=== PATIENT | female | born 1940 | race African-American/Black ===

== ENCOUNTER 2022-09-05 07:50 | Day surgery (SDC) | payer MEDICARE, SELFPAY ==
[2022-08-01 10:29] VITALS: BMI 33.3
[2022-08-29 10:39] VITALS: BMI 30.8
[2022-09-05 08:40] VITALS: BP 168/92; PULSE 80; RESP 18; TEMP 36.7; O2SAT 100
[2022-09-05 08:42] LABS: Glucose Point of Care 101 mg/dl (65-105)
--- NOTE | 2022-09-05 09:24 | PM.HPGS ---
History of Present Illness History of Present Illness Consent: Risks, benefits, and alternatives have been discussed and questions answered. Patient agrees to proceed with procedure. Chief complaint: History of Colon Polyps Narrative: Krysta Duarte is a 82 year old female Presents for screening colonoscopy. Patient's current weight appetite and bowel movements are normal. Patient denies abdominal pain. She has had no bleeding. Patient has a history of adenomatous colon polyps removed 2017. Patient presents today for follow-up screening colonoscopy because of prior history of colon polyps. Review of Systems Review of Systems: Review of systems noncontributory. [facility] Social History Social History Smoking status: Never smoker Alcohol intake: never Substance use: never Substance use type: does not use Living arrangements: with family Spiritual care concerns: No Meds Home Medications and Allergies Home Medications Medication Instructions Recorded Confirmed Type sodium,potassium,mag sulfates 17.5 See Rx Instructions PO .COMPLEX 08/01/22 09/05/22 Rx gram-3.13 gram-1.6 gram oral soln #354 mL (Suprep Bowel Prep Kit) aspirin 325 mg tablet 325 mg PO DAILY 08/29/22 09/05/22 History carvedilol 12.5 mg tablet 12.5 mg PO DAILY 08/29/22 09/05/22 History citalopram 20 mg tablet 20 mg PO DAILY 08/29/22 09/05/22 History ezetimibe 10 mg tablet 10 mg PO DAILY 08/29/22 09/05/22 History fluticasone propionate 50 2 spray intranasal DAILY 08/29/22 09/05/22 History mcg/actuation nasal spray,suspension furosemide 20 mg tablet 20 mg PO DIRECTED 08/29/22 09/05/22 History hydrocodone 10 mg-acetaminophen 1 tablet PO DIRECTED 08/29/22 09/05/22 History 325 mg tablet isosorbide mononitrate 30 mg 30 mg PO DAILY 08/29/22 09/05/22 History tablet,extended release 24 hr metformin 500 mg tablet 500 mg PO BID 08/29/22 09/05/22 History primidone 50 mg tablet 50 mg PO DIRECTED 08/29/22 09/05/22 History simvastatin 40 mg tablet 20 mg PO DAILY 08/29/22 09/05/22 History trazodone 100 mg tablet 1 mg PO HS 08/29/22 09/05/22 History triamterene 37.5 1 tablet PO DAILY 08/29/22 09/05/22 History mg-hydrochlorothiazide 25 mg tablet Allergies Allergy/AdvReac Type Severity Reaction Status Date / Time erythromycin base Allergy Severe LUMP IN Verified 09/05/22 08:38 THROAT, HIVES morphine Allergy Severe HIVES Verified 09/05/22 08:38 Penicillins Allergy Severe HIVES Verified 09/05/22 08:38 Campus Allergy Severe LIPS AND Uncoded 09/05/22 08:38 TONGUE SWELLS Exam Narrative: Physical exam reveals patient to be alert. Vital signs stable. HEENT exam is unremarkable. Patient is anicteric. Lungs are clear to auscultation and percussion. Heart is without murmur or extra sounds. Abdomen bowel sounds present soft nontender with no organomegaly. Digital external rectal exam is normal. Assessment and Plan Assessment and plan (1) History of colon polyps: Code(s): Z86.010 - Personal history of colonic polyps Status: Acute Assessment and Plan: Patient has a prior history of colon polyps. Most recently 2016. Plan for follow-up colonoscopy at this time.
--- NOTE | 2022-09-05 09:29 | WPDANESEPPF ---
Anes - Initial Pre Proc Eval Procedure: Operation Date: 09/05/22 09:30 Proposed Procedures p Diagnostic Colonoscopy - Benoit Gallegos MD Date/Time: 09/05/22 09:29 Surgeon: Benoit Gallegos MD Pre Op Diagnosis: History of Colon Polyps Patient Data Age: 82 Gender: F Height: 1.6 m Weight: 78.3 kg Allergies Allergy/AdvReac Type Severity Reaction Status Date / Time erythromycin base Allergy Severe LUMP IN Verified 09/05/22 08:38 THROAT, HIVES morphine Allergy Severe HIVES Verified 09/05/22 08:38 Penicillins Allergy Severe HIVES Verified 09/05/22 08:38 [place] Allergy Severe LIPS AND Uncoded 09/05/22 08:38 TONGUE SWELLS Home Medications Medication Instructions Recorded Confirmed Type sodium,potassium,mag sulfates 17.5 See Rx Instructions PO .COMPLEX 08/01/22 09/05/22 Rx gram-3.13 gram-1.6 gram oral soln #354 mL (Suprep Bowel Prep Kit) aspirin 325 mg tablet 325 mg PO DAILY 08/29/22 09/05/22 History carvedilol 12.5 mg tablet 12.5 mg PO DAILY 08/29/22 09/05/22 History citalopram 20 mg tablet 20 mg PO DAILY 08/29/22 09/05/22 History ezetimibe 10 mg tablet 10 mg PO DAILY 08/29/22 09/05/22 History fluticasone propionate 50 2 spray intranasal DAILY 08/29/22 09/05/22 History mcg/actuation nasal spray,suspension furosemide 20 mg tablet 20 mg PO DIRECTED 08/29/22 09/05/22 History hydrocodone 10 mg-acetaminophen 1 tablet PO DIRECTED 08/29/22 09/05/22 History 325 mg tablet isosorbide mononitrate 30 mg 30 mg PO DAILY 08/29/22 09/05/22 History tablet,extended release 24 hr metformin 500 mg tablet 500 mg PO BID 08/29/22 09/05/22 History primidone 50 mg tablet 50 mg PO DIRECTED 08/29/22 09/05/22 History simvastatin 40 mg tablet 20 mg PO DAILY 08/29/22 09/05/22 History trazodone 100 mg tablet 1 mg PO HS 08/29/22 09/05/22 History triamterene 37.5 1 tablet PO DAILY 08/29/22 09/05/22 History mg-hydrochlorothiazide 25 mg tablet Laboratory Tests 09/05/22 08:39 POC Capillary Glucose 101 mg/dl mg/dl (65-105) Patient hx anesthesia problems: none Family hx anesthesia problems: none Results Review: All pre-operative results and documents have been reviewed as part of the pre-operative evaluation. [facility] Past Medical History Medical History (Updated 09/05/22 @ 09:31 by Keegan Hamilton MD) Arthritis Diabetes HTN (hypertension) Hyperlipidemia Obesity Social History Social History Smoking status: Never smoker Alcohol intake: never Substance use: never Substance use type: does not use Living arrangements: with family Spiritual care concerns: No Anes - Eval Final PreProcedure Day of Procedure 09/05/22 09:29 Patient weight: obese Heart: regular rate and rhythm Lungs: clear to auscultation and normal air movement Airway: Mallampati scale class II Neurological: alert and oriented Last oral intake: >/= 8 hours ASA classification: III Emergent: no Anesthetic plan: proceed Anesthesia type and monitoring: general GIVS Results Review: All pre-operative results and documents have been reviewed as part of the pre-operative evaluation. Informed Consent: The patient's anesthetic plan and its attendant risks and benefits were discussed with the patient/family/POA. Questions were solicited and answers provided to the satisfaction of the patient/family/POA.
[2022-09-05] MEDS: LACTATED RINGERS 1,000 ML 150 ML IV CONT (10:07)
[2022-09-05 10:36] VITALS: BP 121/65; PULSE 66; RESP 17; O2SAT 99
[2022-09-05 10:46] VITALS: BP 145/62; PULSE 62; RESP 18; O2SAT 100
--- NOTE | 2022-09-05 10:53 | SUR.PHASEII ---
PT AWAKE AND ALERT. EATING AND DRINKING. DENIES PAIN. ASKING WHEN SHE CAN GO HOME.
[2022-09-05 10:56] VITALS: BP 147/66; PULSE 61; RESP 18; O2SAT 100
--- NOTE | 2022-09-05 12:00 | WPDANESPN ---
Anes - Prog Note Post-Op Date/Time: 09/05/22 12:00 Cardiovascular status: normal Respiratory status: normal Airway patency: baseline Mental status: baseline Post-Op hydration status: normal Vital Signs: Last Vital Signs Temp 36.7 C 09/05/22 08:40 Pulse 61 09/05/22 10:56 Resp 18 09/05/22 10:56 BP 147/66 H 09/05/22 10:56 Pulse Ox 100 09/05/22 10:56 O2 Del Method Room Air 09/05/22 10:56 Pain Score (VAS): 0 I/O: Intake & Output 09/04/22 09/05/22 09/05/22 23:59 07:59 15:59 Intake Total 600 Balance 600 09/05/22 08:39 POC Capillary Glucose 101 Post-procedural complaints: none Patient Feedback: Patient satisfied with anesthetic care.
== END 2022-09-05 11:07 | disposition home or self-care (01) ==
PROVIDERS: PCP Internal Medicine; Visit Provider Internal Medicine Gastroenterology
PROC: 0DJD8ZZ Inspection of Lower Intestinal Tract, Via Natural or Artificial Opening Endoscopic (ICD-10-PCS; CPT 45378; principal; 2022-09-05 09:30)
DX: Z86.010 Personal history of colon polyps (principal)
CPT/HCPCS: 45378

== ENCOUNTER 2024-02-08 13:58 | Emergency (ER) | payer MEDICARE, SELFPAY ==
--- NOTE | ~2024-02-08 | CT_ITS ---
CT brain wo con Ordering provider: Luis Alfredo Cleveland MD History: 83 years Female with . GASTELUM/ N/V . Comparison: None. Technique: CT of the head without contrast. Radiation reduction technique utilized. The dose-length product was 605.33 mGy-cm. FINDINGS: BRAIN PARENCHYMA AND CSF SPACES: Mild leukoaraiosis and diffuse cortical atrophy. Mild atheromatous d isease. Mild ventricular dilatation. Old lacunar infarct in the right basal ganglia. No midline shift , mass effect or hemorrhage. The brain parenchyma and CSF spaces are otherwise normal. Empty sella t urcica. VISUALIZED PARANASAL SINUSES: Well aerated. MASTOIDS: Well aerated. BONES: The bones appear intact. SOFT TISSUES: Visualized nasopharynx is normal. Superficial soft tissues are normal. IMPRESSION: No acute intracranial findings. Reviewed, dictated and finalized at location A.
--- NOTE | ~2024-02-08 | XR_ITS ---
XR chest 2V Ordering provider: Luis Alfredo Cleveland MD History: 83 years Female with . lightheaded, LEFT SIDED FACIAL DROOP, HX HTN . Comparison: None. FINDINGS: MEDIASTINUM: The cardiac silhouette is not enlarged. Right bipolar pacemaker. Left abandoned pacemake r wires. LUNGS: No infiltrates, effusions or pneumothorax. Granulomas seen in the right upper lobe and right l ower lobe. OTHER: No free air under the diaphragm. Degenerative spine. IMPRESSION: No acute cardiopulmonary pathology. Reviewed, dictated and finalized at location A.
--- NOTE | 2024-02-08 14:00 | ECG_ITS ---
Test Date: 2024-02-08 14:07:47 Measurements Intervals [place] Rate: 65 P: 31 WA: 297 QRS: 1 QRSD: 93 T: -82 QT: 434 QTc: 452 Interpretive Statements ELECTRONIC ATRIAL PACEMAKER ST DEVIATION AND MODERATE T-WAVE ABNORMALITY, CONSIDER ANTEROLATERAL ISCHEMIA [-0.1+ mV T-WAVE IN V3-V6] ST DEVIATION AND MODERATE T-WAVE ABNORMALITY, CONSIDER INFERIOR ISCHEMIA [-0.1+ mV T-WAVE IN II/aVF] ABNORMAL ECG No previous ECG available for comparison Electronically Signed On 02-09-2024 14:36:08 CDT by Zack Dickerson M.D.
[2024-02-08 14:15] VITALS: BP 212/95; PULSE 65; RESP 19; TEMP 36.8; O2SAT 99
[2024-02-08 14:28] LABS: Basophils Absolute Auto 0.1 K/mm3 (0.0-0.1); Basophils Percent Auto 1.4 % (0.2-1.2); Eosinophils Absolute Auto 0.1 K/mm3 (0-0.3); Eosinophils Percent Auto 2.8 % (0-4.4); Hematocrit 37.6 % (37.0-47.0); Hemoglobin 12.2 g/dL (12.0-15.0); Immature Granulocyte Absolute 0.01 K/mm3 (0.00-0.031); Immature Granulocyte Percent A 0.2 % (0-0.5); Lymphocytes Absolute Auto 2.08 K/mm3 (0.9-3.2); Lymphocytes Percent Auto 40.9 % (18.3-44.2); Mean Corpuscular HGB Conc 32.4 g/dl (32-36); Mean Corpuscular Hemoglobin 28.7 pg (26-34); Mean Corpuscular Volume 88.5 fl (80-100); Mean Platelet Volume 9.9 fl (7.4-10.4); Monocytes Absolute Auto 0.4 K/mm3 (0.1-0.6); Monocytes Percent Auto 7.5 % (2.6-8.5); Neutrophils Absolute Auto 2.4 K/mm3 (1.3-6.7); Neutrophils Percent Auto 47.2 % (45.5-73.1); Platelet Count Result 255 k/mm3 (150-375); Red Blood Count 4.25 M/mm3 (4.2-5.4); Red Cell Distribution Width 13.1 % (11.5-14.5); White Blood Count 5.1 K/mm3 (4.5-10.0)
[2024-02-08 14:36] LABS: Alanine Aminotransferase 16 U/L (6-35); Albumin Level 4.2 g/dL (3.5-5.1); Alkaline Phosphatase 107 U/L (38-126); Anion Gap 9 mmol/L (4-12); Aspartate Amino Transferase 26 U/L (14-36); Bilirubin,Total 0.2 mg/dL (0.2-1.3); Blood Urea Nitrogen 27 mg/dL (7-17); Carbon Dioxide 28 mmol/L (22-30); Chloride 95 mmol/L (98-107); Estimated CRCL calculation 39 ml/min; Estimated Glomerular Filt Rate > 60; Glucose 107 mg/dL (65-110); Sodium 132 mmol/L (137-145)
[2024-02-08] MEDS: PROCHLORPERAZINE EDISYLATE 10 MG/2 ML VIAL IM (14:57)
[2024-02-08] MEDS: diphenhydrAMINE HCl INJ 50 MG/ML VIAL 25 MG IV PUSH (14:58)
[2024-02-08] MEDS: ACETAMINOPHEN 500 MG TABLET 1000 MG PO (14:59)
[2024-02-08 15:03] VITALS: BP 201/79; PULSE 61; RESP 12; O2SAT 97
[2024-02-08 15:14] VITALS: BP 201/79; PULSE 61; RESP 17; O2SAT 98
--- NOTE | 2024-02-08 15:50 | ECG_ITS ---
Test Date: 2024-02-08 15:57:31 Measurements Intervals [place] Rate: 60 P: 32 NH: 214 QRS: -74 QRSD: 204 T: 101 QT: 502 QTc: 506 Interpretive Statements ELECTRONIC ATRIAL PACEMAKER ELECTRONIC VENTRICULAR PACEMAKER ABNORMAL RHYTHM ECG Compared to ECG 02/08/2024 14:07:47 PATIENT IS VENTRICULARLY PACED RATHER THAN INTRINSIC CONDUCTION Electronically Signed On 02-09-2024 14:48:07 CDT by Zack Dickerson M.D.
[2024-02-08 15:52] VITALS: BP 185/74; PULSE 61; RESP 16; O2SAT 98
[2024-02-08] MEDS: cloNIDine HCL 0.1 MG TABLET 0.2 MG PO (15:52)
--- NOTE | 2024-02-08 16:57 | ED.GENADULT ---
HPI - General Adult General Chief complaint: Recheck/Abnormal Lab/Rx Stated complaint: HTN-sent from [facility] Time Seen by Provider: 02/08/24 14:08 History of Present Illness HPI narrative: This is an 83-year-old female sent to the ED from urgent care for hypertension. Patient says she has been having a headache for the last 2 days. It is her typical frontal headache that she has on a weekly basis. Since she has had her headache she has noticed that her blood pressures have been elevated at 200/90. She states she has had some associated nausea but no vomiting. 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 No chest pain difficulty breathing. She is on clonidine which is the only medication she takes for her hypertension. No other complaints. Related Data Home Medications Medication Instructions Recorded Confirmed citalopram 20 mg tablet 20 mg PO DAILY 08/29/22 01/25/24 furosemide 20 mg tablet 20 mg PO DIRECTED 08/29/22 01/25/24 hydrocodone 10 mg-acetaminophen 1 tablet PO DIRECTED 08/29/22 01/25/24 325 mg tablet isosorbide mononitrate 30 mg 30 mg PO DAILY 08/29/22 01/25/24 tablet,extended release 24 hr metformin 500 mg tablet 500 mg PO BID 08/29/22 01/25/24 primidone 50 mg tablet 50 mg PO DIRECTED 08/29/22 01/25/24 simvastatin 40 mg tablet 20 mg PO DAILY 08/29/22 01/25/24 clonidine HCl 0.1 mg tablet 0.1 mg PO DAILY 08/31/23 01/25/24 diazepam 5 mg tablet 5 mg PO QHS PRN 08/31/23 01/25/24 meclizine 25 mg tablet 25 mg PO BID PRN 08/31/23 01/25/24 methadone 5 mg tablet 5 mg PO DAILY 08/31/23 01/25/24 topiramate 25 mg capsule,extended 25 mg PO DAILY 08/31/23 01/25/24 release 24 hr Allergies Allergy/AdvReac Type Severity Reaction Status Date / Time erythromycin base Allergy Severe LUMP IN Verified 02/08/24 13:59 THROAT, HIVES morphine Allergy Severe HIVES Verified 02/08/24 13:59 Penicillins Allergy Severe HIVES Verified 02/08/24 13:59 orange Allergy Unknown lips swell Verified 02/08/24 13:59 PMFSH Past Medical History Medical History Arthritis Diabetes HTN (hypertension) Hyperlipidemia Obesity Pacemaker Vertigo Surgical History Surgical History History of appendectomy History of cholecystectomy History of permanent cardiac pacemaker placement History of tubal ligation Family History Family History Father Acute myocardial infarction Heart disease Mother Diabetes mellitus Sibling , ovarian cancer COVID-19 Cerebrovascular accident Acute myocardial infarction Diabetes mellitus Hypertension Other Cancer Social History Social History Smoking status: Former smoker Second hand tobacco smoke exposure: No Alcohol intake: never Substance use: never Substance use type: does not use Do You Feel Safe in your Home?: Yes Lack of Transportation: No Lack of Food: Never True Current Housing: Decline to Answer Concerned About Future Housing: No Difficulty Paying Gas/Electric Bills: No Difficulty Paying for Meds: No Currently Unemployed: YES Education: High School Diploma/GED Difficulty w/ Childcare or Family Care: No Living arrangements: with family Occupation/Education: 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 Gender identity (if verbalized by the patient): Female Spiritual care concerns: No Exam Narrative: APPEARANCE: No apparent distress. Head: atraumatic. EYES: EOMI, NOSE: Atraumatic NECK: Trachea midline RESPIRATORY: No increased rate of breathing, clear to auscultation CARDIOVASCULAR: RRR, no peripheral edema ABDOMINAL: Non-distended nontender MUSCULOSKELETAl: No obvious deformities NEURO: Alert. Crania
[2024-02-08 17:37] VITALS: BP 165/87; PULSE 80; RESP 16; O2SAT 97
== END 2024-02-08 17:38 | disposition home or self-care (01) ==
PROVIDERS: Emergency Provider Emergency Medicine; PCP Internal Medicine
DX: R51.9 Headache, unspecified (principal); I10 Essential (primary) hypertension; M19.90 Unspecified osteoarthritis, unspecified site; E11.9 Type 2 diabetes mellitus without complications; E78.5 Hyperlipidemia, unspecified; Z95.0 Presence of cardiac pacemaker; Z79.84 Long term (current) use of oral hypoglycemic drugs
CPT/HCPCS: 36415; 70450; 71046; 80053; 85025; 93005; 96372; 96374; 99284; A9270; J0780; J1200

== ENCOUNTER 2024-03-06 12:39 | Outpatient (CLI) | payer MEDICARE, SELFPAY ==
--- NOTE | 2024-03-06 14:30 | NEURO_ITS ---
Impression: # Complains of numbness of hands. # Right moderate Carpal Tunnel Syndrome. # Bilateral ulnar neuropathy across the elbows. # Needle/EMG exam without myotonia of fasciculations but mild neurogenic changes. Nerve Conduction Studies Anti Sensory Summary Table Stim Site NR Peak (ms) P-T Amp (?V) Site1 Site2 Delta-P (ms) Dist (cm) Young (m/s) Left Median Anti Sensory (2-3nd Digit) Wrist 3.6 26.1 Wrist 2-3nd Digit 3.6 14.0 39 Wrist 3.8 14.4 Wrist 2-3nd Digit 3.6 14.0 39 Right Median Anti Sensory (2-3nd Digit) Wrist 4.3 8.5 Wrist 2-3nd Digit 4.3 14.0 33 Wrist 5.7 6.1 Wrist 2-3nd Digit 4.3 14.0 33 Left Radial Anti Sensory (Base 1st Digit) Wrist 2.1 24.4 Wrist Base 1st Digit 2.1 0.0 Right Radial Anti Sensory (Base 1st Digit) Wrist 3.0 10.2 Wrist Base 1st Digit 3.0 0.0 Left Ulnar Anti Sensory (5th Digit) Wrist 3.4 15.2 Wrist 5th Digit 3.4 14.0 41 Right Ulnar Anti Sensory (5th Digit) Wrist 3.1 10.7 Wrist 5th Digit 3.1 14.0 45 Motor Summary Table Stim Site NR Onset (ms) O-P Amp (mV) Site1 Site2 Delta-0 (ms) Dist (cm) Young (m/s) Left Median Motor (Abd Poll Brev) Wrist 3.4 5.7 Elbow Wrist 5.4 31.0 57 Elbow 8.8 5.0 Right Median Motor (Abd Poll Brev) Wrist 5.5 3.7 Elbow Wrist 5.5 28.0 51 Elbow 11.0 3.8 Left Ulnar Motor (Abd Dig Minimi) Wrist 2.5 4.8 A Elbow Wrist 6.6 32.0 48 A Elbow 9.1 3.9 B Elbow Wrist 4.1 21.0 51 B Elbow 6.6 2.8 Right Ulnar Motor (Abd Dig Minimi) Wrist 2.7 2.9 A Elbow Wrist 7.1 29.0 41 A Elbow 9.8 1.3 B Elbow Wrist 3.9 21.0 54 B Elbow 6.6 2.6 F Wave Studies NR F-Lat (ms) L-R F-Lat (ms) Left Median (Mrkrs) (Abd Poll Brev) 31.04 1.56 Right Median (Mrkrs) (Abd Poll Brev) 32.60 1.56 Left Ulnar (Mrkrs) (Abd Dig Min) 31.80 0.52 Right Ulnar (Mrkrs) (Abd Dig Min) 32.32 0.52 EMG Side Muscle Nerve Root Ins Act Fibs Amp Dur Recrt Comment Right 1stDorInt Ulnar C8-T1 Nml Nml Nml >12ms +1 Right Ext Indicis Radial (Post Int) C7-8 Nml Nml Nml Nml Nml Right Ext Digitorum Radial (Post Int) C7-8 Nml Nml Nml Nml Nml Right BrachioRad Radial C5-6 Nml Nml Nml Nml Nml Right PronatorTeres Median C6-7 Nml Nml Nml Nml Nml Right Abd Poll Brev Median C8-T1 Nml Nml Nml Nml Nml Right ABD Dig Min Ulnar C8-T1 Nml Nml Nml >12ms +1 Left 1stDorInt Ulnar C8-T1 Nml Nml Nml >12ms +1 Left Ext Indicis Radial (Post Int) C7-8 Nml Nml Nml Nml Nml Left Ext Digitorum Radial (Post Int) C7-8 Nml Nml Nml Nml Nml Left BrachioRad Radial C5-6 Nml Nml Nml Nml Nml Left PronatorTeres Median C6-7 Nml Nml Nml Nml Nml Left Abd Poll Brev Median C8-T1 Nml Nml Nml Nml Nml Left ABD Dig Min Ulnar C8-T1 Nml Nml Nml >12ms +1 MTDD
== END 2024-03-06 12:40 | disposition home or self-care (01) ==
PROVIDERS: PCP Internal Medicine; Visit Provider Orthopaedic Surgery
DX: G56.01 Carpal tunnel syndrome, right upper limb (principal); G56.23 Lesion of ulnar nerve, bilateral upper limbs
CPT/HCPCS: 95886; 95911

== ENCOUNTER 2024-04-08 00:50 | Day surgery (SDC) | payer MEDICARE, SELFPAY ==
[2024-04-01 13:37] VITALS: BMI 34.9
--- NOTE | 2024-04-01 13:55 | PC.NURSE ---
Report to the Outpatient Waiting Room, entrance under the green pavilion located off [facility], at time _07:30am___on date _04/08/24 . Planned Procedure Time: _09:30am .? Time changes happen often and if your time is changed the preop area will call you the afternoon before. - You and your visitor will be asked to self-screen and do not enter if you have any COVID symptoms. Please call surgeon if you need to reschedule. - A mask is optional within the hospital at this time. Patients may have clear liquids (water, carbonated beverages, clear teas, apple juice) until 3 hours prior to surgery with a maximum of 20 ounces. - No food from midnight until time of surgery and no smoking - Infants may have breast milk until 4 hours before surgery, infant formula 6 hours prior to surgery. - Children will be allowed to drink immediately following surgery.? If applicable, please bring a bottle or sippy cup to assist with drinking. Juice, water, soda, and popsicles are readily available.? For infants on formula, please bring formula the day of surgery.? Pacifiers are allowed. Take only the following medications with a SIP of water on the morning of surgery: Citalopram, Isosorbide, primidone, hydrocodone if needed , topiramate, meclizine & hydrocodone if needed. DO NOT STOP ANY OF YOUR OTHER PRESCRIPTION MEDICATIONS PRIOR TO SURGERY EXCEPT THE FOLLOWING Medications to discontinue per physician Dr Mathews to call pt with instructions on Diclofenac and Aspirin (Office called and his RN to call pt later today or tomorrow with instructions, pt aware. Date to take last dose____Per DR Mathews instructions on these two Aspirin and Diclofenac. HOLD All Vitamins 3 days prior to surgery per Anesthesia. Date to take last dose is 04/04/24. Please no make-up, nail emirati, hairspray, perfume, deodorant, or body powder the day of surgery.? No jewelry (including any body piercings) or valuables the day of surgery, leave them at home.? Please take a shower or bath the night before, or the morning of, surgery with an antibacterial soap.? Wear comfortable, loose fitting clothing.? - Jewelry must be removed prior to entering the operating room.? Rings and piercings that are not removed may be cut off. - The hospital will not accept responsibility for valuables.? - Please leave all valuables, including medications, at home the day of surgery. If you are going home after surgery, a licensed route sales delivery driver must drive you home.? - NO public transportation without another adult if you receive anesthesia. - We recommend that an adult stay with you for 24 hours following discharge. - We also recommend that you do not drive, make important decision, drink alcoholic beverages, or take any drugs that were not prescribed by your health care provider for at least 24 hours after your discharge time. Follow any additional instructions given to you from your surgeon. Telephone instructions given to __patient and asked if any additional questions and then verbalized understanding. Patient advised to call surgeon office or pre surgery nurse liaison [phone] if any additional questions.
--- NOTE | 2024-04-02 11:36 | PM.IMHP ---
H&P: HPI History of Present Illness Date/Time: 04/02/24 11:36 Chief Complaint: Patient is a right carpal and cubital tunnel syndrome. She has failed conservative treatment like to consider surgical release. Review of Systems Musculoskeletal: Musculoskeletal: Reports arthralgias, Reports joint swelling and Reports stiffness [facility] Past Medical History Medical History Arthritis Diabetes HTN (hypertension) Hyperlipidemia Obesity Pacemaker Vertigo Surgical History Surgical History History of appendectomy History of cholecystectomy History of permanent cardiac pacemaker placement History of tubal ligation Family History Family History Father Acute myocardial infarction Heart disease Mother Diabetes mellitus Sibling , ovarian cancer COVID-19 Cerebrovascular accident Acute myocardial infarction Diabetes mellitus Hypertension Other Cancer Social History Social History Smoking packs per day: 0.5 Smoking cigarettes per day: 10.0 Years smoked: 10 Smoking pack-years: 5.00 Smoking status: Former smoker Second hand tobacco smoke exposure: No Smoking end date: 06/26/1963 Alcohol intake: never Substance use: never Substance use type: does not use Do You Feel Safe in your Home?: Yes Lack of Transportation: No Lack of Food: Never True Current Housing: I Have Housing Concerned About Future Housing: No Difficulty Paying Gas/Electric Bills: No Difficulty Paying for Meds: YES Education: High School Diploma/GED Difficulty w/ Childcare or Family Care: No Living arrangements: with family Additional living arrangements comments: 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/Education: 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 Gender identity (if verbalized by the patient): Female Spiritual care concerns: No Meds Home Medications and Allergies Home Medications Medication Instructions Recorded Confirmed Type citalopram 20 mg tablet 20 mg PO DAILY 08/29/22 04/01/24 History furosemide 20 mg tablet 40 mg PO DIRECTED 08/29/22 04/01/24 History hydrocodone 10 mg-acetaminophen 1 tablet PO DIRECTED 08/29/22 04/01/24 History 325 mg tablet isosorbide mononitrate 30 mg 30 mg PO DAILY 08/29/22 04/01/24 History tablet,extended release 24 hr metformin 500 mg tablet 500 mg PO BID 08/29/22 04/01/24 History primidone 50 mg tablet 150 mg PO DIRECTED 08/29/22 04/01/24 History simvastatin 40 mg tablet 20 mg PO DAILY 08/29/22 04/01/24 History clonidine HCl 0.1 mg tablet 0.2 mg PO TID 08/31/23 04/01/24 History topiramate 25 mg capsule,extended 25 mg PO DIRECTED headache 08/31/23 04/01/24 History release 24 hr diclofenac sodium 75 mg See Rx Instructions .Route 03/28/24 04/01/24 Rx tablet,delayed release .COMPLEX #60 tabs aspirin 81 mg tablet 81 mg PO DAILY 04/01/24 04/01/24 History naloxegol 25 mg tablet (Movantik) 25 mg PO DAILY 04/01/24 04/01/24 History trazodone 100 mg tablet 100 mg PO HS 04/01/24 04/01/24 History Allergies Allergy/AdvReac Type Severity Reaction Status Date / Time erythromycin base Allergy Severe LUMP IN Verified 04/01/24 13:26 THROAT, HIVES morphine Allergy Severe HIVES Verified 04/01/24 13:26 Penicillins Allergy Severe HIVES Verified 04/01/24 13:26 orange Allergy Unknown lips swell Verified 04/01/24 13:26 Exam Narrative: Examination of her wrist demonstrates positive Phalen's carpal tunnel compression test. She has increased two-point discrimination in the median nerve innervated fingers. She has pain with any manipulation. Examination of her elbow demonstrates tenderness along the ulnar nerve. She has a positive Tinel's and cubital tunnel compression test. Numbn
[2024-04-08] VITALS (10 sets, daily range): BP systolic 157–191; BP diastolic 68–89; PULSE 60–80; RESP 10–18; TEMP 36.1–36.6; O2SAT 97–100
--- NOTE | 2024-04-08 06:46 | WPDHPUPDATE1 ---
History and Physical Update Update Date/Time: 04/08/24 06:46 History and Physical has been reviewed, including an updated exam of the patient. There are NO changes in the patient's condition. Risks, benefits, and alternatives have been discussed and questions answered. Patient agrees to proceed with procedure.
--- NOTE | 2024-04-08 07:11 | WPDANESEPPF ---
Anes - Initial Pre Proc Eval Procedure: Operation Date: 04/08/24 09:30 Proposed Procedures p Right Carpal and Cubital Tunnel Release - Dewey Mathews MD Date/Time: 04/08/24 07:11 Surgeon: eDwey Mathews MD Pre Op Diagnosis: Right Carpal and Cubital Tunnel syndrome Patient Data Age: 83 Gender: F Height: 1.55 m Weight: 84 kg Allergies Allergy/AdvReac Type Severity Reaction Status Date / Time erythromycin base Allergy Severe LUMP IN Verified 04/01/24 13:26 THROAT, HIVES morphine Allergy Severe HIVES Verified 04/01/24 13:26 Penicillins Allergy Severe HIVES Verified 04/01/24 13:26 orange Allergy Unknown lips swell Verified 04/01/24 13:26 Home Medications Medication Instructions Recorded Confirmed Type citalopram 20 mg tablet 20 mg PO DAILY 08/29/22 04/01/24 History furosemide 20 mg tablet 40 mg PO DIRECTED 08/29/22 04/01/24 History hydrocodone 10 mg-acetaminophen 1 tablet PO DIRECTED 08/29/22 04/01/24 History 325 mg tablet isosorbide mononitrate 30 mg 30 mg PO DAILY 08/29/22 04/01/24 History tablet,extended release 24 hr metformin 500 mg tablet 500 mg PO BID 08/29/22 04/01/24 History primidone 50 mg tablet 150 mg PO DIRECTED 08/29/22 04/01/24 History simvastatin 40 mg tablet 20 mg PO DAILY 08/29/22 04/01/24 History clonidine HCl 0.1 mg tablet 0.2 mg PO TID 08/31/23 04/01/24 History topiramate 25 mg capsule,extended 25 mg PO DIRECTED headache 08/31/23 04/01/24 History release 24 hr diclofenac sodium 75 mg See Rx Instructions .Route 03/28/24 04/01/24 Rx tablet,delayed release .COMPLEX #60 tabs aspirin 81 mg tablet 81 mg PO DAILY 04/01/24 04/01/24 History naloxegol 25 mg tablet (Movantik) 25 mg PO DAILY 04/01/24 04/01/24 History trazodone 100 mg tablet 100 mg PO HS 04/01/24 04/01/24 History Patient hx anesthesia problems: none Family hx anesthesia problems: none Results Review: All pre-operative results and documents have been reviewed as part of the pre-operative evaluation. [facility] Past Medical History Medical History Arthritis Diabetes HTN (hypertension) Hyperlipidemia Obesity Pacemaker Vertigo Surgical History Surgical History History of appendectomy History of cholecystectomy History of permanent cardiac pacemaker placement History of tubal ligation Family History Family History Father Acute myocardial infarction Heart disease Mother Diabetes mellitus Sibling , ovarian cancer COVID-19 Cerebrovascular accident Acute myocardial infarction Diabetes mellitus Hypertension Other Cancer Social History Social History Smoking packs per day: 0.5 Smoking cigarettes per day: 10.0 Years smoked: 10 Smoking pack-years: 5.00 Smoking status: Former smoker Second hand tobacco smoke exposure: No Smoking end date: 06/26/1963 Alcohol intake: never Substance use: never Substance use type: does not use Do You Feel Safe in your Home?: Yes Lack of Transportation: No Lack of Food: Never True Current Housing: I Have Housing Concerned About Future Housing: No Difficulty Paying Gas/Electric Bills: No Difficulty Paying for Meds: YES Education: High School Diploma/GED Difficulty w/ Childcare or Family Care: No Living arrangements: with family Additional living arrangements comments: 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
[2024-04-08] MEDS: KETOROLAC 15 MG/ML VIAL (*BKC) IV PUSH (07:15)
[2024-04-08] MEDS: ACETAMINOPHEN 500 MG TABLET 1000 MG PO (07:15)
[2024-04-08] MEDS: LACTATED RINGERS 1,000 ML 30 ML IV CONT (07:15)
[2024-04-08 07:17] LABS: Glucose Point of Care 94 mg/dl (65-105)
[2024-04-08] MEDS: ceFAZolin 2 GM/D5W 50 ML 2 GM/50 ML BAG IVPB (07:29)
[2024-04-08] MEDS: ceFAZolin SODIUM 1 GM VIAL (07:52)
[2024-04-08] MEDS: LIDO 1%/EPINEPHRINE 1:100,000 20 ML VIAL 5 ML INFILTRATE (08:10)
--- NOTE | 2024-04-08 08:25 | P.OP_ITS ---
Procedure Note - Detailed Date of Procedure 04/08/24 Pre-op Diagnosis Right Carpal and Cubital Tunnel syndrome Post-op Diagnosis Same Procedure Performed RIGHT Carpal Tunnel release RIGHT Cubital Tunnel release Surgeon Dewey Mathews MD Anesthesia MAC Indications Pain and Numbness Description of Procedure A general anesthetic was administered. Patient was sterilely prepped and draped. I began with the elbow. A longitudinal incision was made between the m edial epicondyle and the olecranon. Dissection carried down to the fascia and the fascia and thickened cubital tunnel were split. This completely released the ulnar nerve. The arm was put through a full range of motion and the nerve was noted to be stable in all directions. Hemostasis was obtained, the wound thoroughly irrigated, and closed with 2-0 Vicryl and 3-0 Nylon. I then proceeded to the carpal tunnel. After sterile prep and drape, I injected the area of intended incision with 10ml of 1% lidocaine. A longitudinal incision was made in line with the ulnar boarder of the third finger. Dissection carried down to the fascia, the fascia split and the carpal ligament identified. The carpal ligament was released and the flexor retinaculum was released as well. The nerve was noted to be red purple in color and in continuity. The wound was irrigated, hemostasis was obtained and closed with 3- 0 nylon. Estimated Blood Loss 5 Drains No Packing No Pathology None sent Complications No immediate complications Condition Stable Disposition Same day [facility] Billing Surgery - Charge Forward: Surgery Billing ([id number] Carpal Tunnel [id number] Cubital Tunnel)
[2024-04-08 08:47] LABS: Glucose Point of Care 83 mg/dl (65-105)
[2024-04-08] MEDS: fentaNYL CITRATE INJ (*CRX) 100 MCG/2 ML VIAL 25 MCG IV PUSH ×4 (08:53→09:32)
[2024-04-08] MEDS: HYDROcodone/acetaminophen (*CRX) 5-325 MG TABLET 1 TAB PO (10:17)
== END 2024-04-08 10:57 | disposition home health service (06) ==
PROVIDERS: PCP Internal Medicine; Visit Provider Orthopaedic Surgery
PROC: (CPT 64721; principal; 2024-04-08 09:30)
DX: G56.01 Carpal tunnel syndrome, right upper limb (principal); G56.21 Lesion of ulnar nerve, right upper limb; I10 Essential (primary) hypertension; E78.5 Hyperlipidemia, unspecified; E11.9 Type 2 diabetes mellitus without complications; E66.9 Obesity, unspecified; Z68.34 Body mass index [BMI] 34.0-34.9, adult; Z79.891 Long term (current) use of opiate analgesic; Z79.84 Long term (current) use of oral hypoglycemic drugs; Z79.82 Long term (current) use of aspirin; Z98.890 Other specified postprocedural states; Z95.0 Presence of cardiac pacemaker; Z90.49 Acquired absence of other specified parts of digestive tract; Z98.51 Tubal ligation status; Z87.891 Personal history of nicotine dependence; Z80.41 Family history of malignant neoplasm of ovary; Z82.49 Family history of ischemic heart disease and other diseases of the circulatory system
CPT/HCPCS: 64721; 64718; 82948; A9270; J0690; J1885; J2003; J2004; J2405; J2704; J3010; J7120

== ENCOUNTER 2024-06-13 11:10 | Outpatient (CLI) | payer MEDICARE, SELFPAY ==
--- NOTE | ~2024-06-13 | XR_ITS ---
AP and lateral views of the left hip Clinical history: Pain Findings: No acute fracture or dislocation is seen. Osseous alignment is anatomic. There is spurring at the left superolateral acetabular margin. Soft tissues are unremarkable. Impression: Mild left hip joint degenerative change Reviewed, dictated and finalized at [facility]. ONENT INSPECTOR Impression: Mild left hip joint degenerative change
== END 2024-06-13 11:11 | disposition home or self-care (01) ==
LOC: ANHIMG 11:16
PROVIDERS: PCP Internal Medicine; Visit Provider Internal Medicine
DX: M25.552 Pain in left hip (principal); M16.12 Unilateral primary osteoarthritis, left hip
CPT/HCPCS: 73502

== ENCOUNTER 2025-04-02 09:15 | Outpatient (CLI) | payer MEDICARE, SELFPAY ==
--- NOTE | ~2025-04-02 | CT_ITS ---
EXAMINATION: CT sinus wo con COMPARISON: None HISTORY: Chronic sinusitis TECHNIQUE: Axial images were obtained without IV contrast. Sagittal, coronal reconstruction images were obtained from the axial views. CT scan performed using dose optimization techniques including the following automated exposure control; adjustment of mA and/or kV; use of iterative reconstruction technique. Automatic exposure control was used to reduce radiation dose. Permanent radiation dose record is archived to PACS. FINDINGS: The nasal bones are intact. Anterior maxillary sinus kirkpatrick, zygomatic arches and temporomandibular joints are intact. The visualized brain parenchyma demonstrates a remote appearing right basal ganglion lacunar infarct. Pituitary appears atrophy. Correlate for symptoms of the sella syndrome. Orbits are unremarkable. Soft tissues unremarkable Frontal sinus is unremarkable. Minimal mucosal thickening within the ethmoidal air cells and the maxillary sinuses bilaterally. The ostiomeatal complexes are patent. Nasal septum is deviated to the left with mild thickening of the turbinates and mild narrowing of the nasal cavities bilaterally. Sphenoid sinuses are unremarkable. There is no osseous destruction or wall thickening identified. IMPRESSION: Minimal sinusitis. Incidental findings above Reviewed, dictated and finalized at location P.
== END 2025-04-02 09:16 | disposition home or self-care (01) ==
PROVIDERS: PCP Internal Medicine; Visit Provider Otolaryngology
DX: J32.9 Chronic sinusitis, unspecified (principal); J34.2 Deviated nasal septum
CPT/HCPCS: 70486

== ENCOUNTER 2025-04-10 11:38 | Inpatient (IN) | payer MEDICARE, SELFPAY ==
--- OUTSIDE RECORDS SUMMARY | 2009-04-20 09:15 | XMS_ITS | Continuity of Care Document ---
Author Organization [facility] Address [address] [place] [address] [place] [address] Phone Care Team Providers Care Stepdown Nurse Name Role Phone Jeff Flores Unavailable Unavailable Procedures Procedure Date Eye Exam & Treatment Dilated Retinal Exam W Interpretation Oc No Script Advance Directives Directive Yes / No Effective Date File Name No Information Encounters Encounter Description Practice Location Reason(s) For Visit Diagnoses Date Provider Providers Copied on Encounter [facility], [address] [place] [address] [address], [place], [place], [id number], [place] tel:[phone] [facility] No Information 6-[address] [place] Jeff. [address] [facility] [address], [place], [address], [place]. tel:[phone] Family History Family Member Type Diagnosis Age At Onset No Information Payers Payer name Insurance type Covered republican ID Authoriza tion(s) [employer] CI [id number] Social History Type Description Quantity Date Captured Comments Sex Female Smoking Status No Information Chief Complaint And Reason For Visit No Information Reason For Referral Reason For Referral No Information History Of Present Illness Encounter Date Complaint History Of Prese nt Illness No Information Functional Status Date Functional Assessmen t No Information Instructions Date Instruction Additional Infor mation No Information Assessments Type Assessment Date No Information Patient Care Teams Name Effective Dates (start - stop) Status Members No Information
--- OUTSIDE RECORDS SUMMARY | 2009-04-20 09:15 | XMS_ITS | Continuity of Care Document ---
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 [address] [facility] [address], [place], [address], [place]. tel:[phone] Family History Family Member Type Diagnosis Age At Onset No Information Payers Payer name Insurance type Covered democrat ID Authoriza tion(s) [employer] CI [id number] Social History Type Description Quantity Date Captured [...]
--- OUTSIDE RECORDS SUMMARY | 2025-03-23 18:59 | XMS_ITS | Continuity of Care Document ---
Author Organization [facility] Address [address] [place] [phone] Phone Care Team Providers Care Landfill Attendant Name Role Phone Jose RASMUSSEN, DAVID, FSCLINDA, Blu Unavailable U navailable Jose RASMUSSEN FACC, Blu HAINES Unavailable U navailable Procedures Procedure Date REM PHYSIOL MNTR EA ADDL REM MNTR PHYSIOL TING DEV REM PHYSIOL MNTR 20 MIN MO REM PHYSIOL MNTR EA ADDL REM MNTR PHYSIOL TIGN DEV REM PHYSIOL MNTR 20 MIN MO REM PHYSIOL MNTR EA ADDL REM MNTR PHYSIOL TING DEV REM PHYSIOL MNTR 20 MIN MO PM/ICD REMOTE TECH SERV PM DEVICE INTERROGATE REMOTE REM PHYSIOL MNTR EA ADDL REM MNTR PHYSIOL TING DEV REM PHYSIOL MNTR 20 MIN MO Advance Directives Directive Yes / No Effective Date File Name No Information Encounters Encounter Description Practice Location Reason(s) For Visit Diagnoses Date Provider Providers Copied on Encounter [facility], [address], [place], [id number] , tel: [phone] No Information Jose Hurt. [address] [place] [address], [id number] , . tel: [phone] Referring Provider: Blu Garcia, [address] , [place], [address] . tel: [phone] sulting Provider: Blu Garcia, [address], [place], [address] . tel:[phone] REM PHYSIOL MNTR EA ADDL 20 [facility], [address] [place] [address], [id number] , tel: [phone] [facility] [place] Essential (primary) hypertensionPresence of cardiac pacemaker Feb- 5 Ramadan Blu. [address], [place], [id number] , . tel: [phone] Referring Provider: Blu Garcia, [facility] , [place], [address] . tel: [phone] sulting Provider: Blu Garcia, [address] [place], [place] [address]Srinivas , [place], [address] . tel:[phone] REM PHYSIOL MNTR EA ADDL 20 [facility], [address] [place] [address], [id number] , tel: [phone] [facility] Essential (primary) hypertensionPresence of cardiac pacemaker Jan- 5 Ramadan Blu. [address] [place], [place], [id number] , . tel: [phone] Referring Provider: Blu Garcia, [address] , [place], [address] . tel: [phone] sulting Provider: Blu Garcia, [address] [place], [place] [address], [address] . tel:[phone] REM PHYSIOL MNTR EA ADDL 20 [facility], [address] [place] [address], [id number] , tel: [phone] [facility] Ess[facility] (primary) hypertensionPresence of cardiac pacemaker Dec-3 0 5 Ramadan Blu. [address], [place], [id number] , . tel: [phone] Referring Provider: Blu Garcia, [address] [place], [address] . tel:[phone] jessica Provider: Blu Garcia, [address] [place], [address] . tel:[phone] [facility] , [address] [place] [address], [id number] , tel: [phone] [facility] Essential (primary) hypertensionPresence of cardiac pacemaker 5 Ramadan Blu. [facility] [address] [place], [place], [id number] , . tel: [phone] Referring Provider: Blu Garcia, [address] [place], [address] . tel:[phone] lopez Provider: Blu Garcia, [facility] [place], [address] . tel:[phone] REM PHYSIOL MNTR EA ADDL 20 [facility] , [address] [place] [address], [id number] , tel: [phone] [facility] [place] Essential (primary) hypertensionPresence of cardiac pacemaker 5 Ramadan Blu. [facility] [address] [place], [place], [id number] , . tel: [phone] Referring Provider: Blu Garcia, [address] [place], [address] . tel:[phone] lopez Provider: Blu Garcia [address] [place], [address] . tel:[phone] Family History Family Member Type Diagnosis Age At Onset No Information Payers Payer name Insurance type Covered republican ID Authorjoshuaa chanell(s) [facility] MEDICARE AD[facility]ANTAGE [address] [id number] Social History Type Description Quantity Date Captured Comments Sex Female Smoking Status No Information Chief Complaint And Reason For Visit No Information Reason For Referral Reason For Referral No Information Plan Of Treatment Date Type Action Status Appointment Krysta Duarte [facility] Needs Rs BOOKED History Of Present Illness Encounter Date Complaint History Of Prese nt Illness No Information Functional Status Date Functional Assessmen t No Information Instructions Date Instruction Additional Infor mation No Information Assessments Type Assessment Date No Information Patient Care Teams Name Effective Dates (start - stop) Status Members No Information
--- OUTSIDE RECORDS SUMMARY | 2025-03-23 18:59 | XMS_ITS | Continuity of Care Document ---
Author Organization [facility] Address [address] [place] [phone] Phone Care Team Providers Care Home Manager Name Role Phone Jose RASMUSSEN, DAVID, FSCLINDA, [...] Diagnoses Date Provider Providers Copied on Encounter [facility], [address], [place], [id number] , tel: [phone] No Information Jose Hurt. [address] [place] [address], [id number] , . tel: [phone] Referring Provider: Blu Garcia, [address] , [place], [address] . tel: [phone] sulting Provider: Blu Garcia, [address], [place], [address] . tel:[phone] REM PHYSIOL MNTR EA ADDL 20 [facility], [address] [place] [address], [id number] , tel: [phone] [facility] [place] Essential (primary) hypertensionPresence of cardiac pacemaker Feb- 5 Ramadan Blu. [address], [place], [id number] , . tel: [phone] Referring Provider: Blu Garcia, [facility] , [place], [address] . tel: [phone] sulting Provider: Blu Garcia, [address] [place], [place] [address]Srin[place] , [place], [address] . tel:[phone] REM PHYSIOL MNTR EA ADDL 20 [facility], [address] [place] [address], [id number] , tel: [phone] [facility] [place] Essential (primary) hypertensionPresence of cardiac pacemaker Jan- 5 Ramadan Blu. [address] [place], [place], [id number] , . tel: [phone] Referring Provider: Blu Garcia, [address] , [place], [address] . tel: [phone] sulting Provider: Blu Garcia, [address] [place], [place] [address], [address] . tel:[phone] REM PHYSIOL MNTR EA ADDL 20 [facility], [address] [place] [address], [id number] , tel: [phone] [facility] [place] Essential (primary) hypertensionPresence of cardiac pacemaker Dec-3 0 5 Ramadan Blu. [address], [place], [id number] , . tel: [phone] Referring Provider: Blu Garcia, [address] [place], [address] . tel:[phone] jessica Provider: Blu Garcia, [address] [place], [address] . tel:[phone] [facility] , [address] [place] [address], [id number] , tel: [phone] [facility] [place] Essential (primary) hypertensionPresence of cardiac pacemaker 5 Ramadan Blu. [facility] [address] [place], [id number] , . tel: [phone] Referring Provider: Blu Garcia, [address] [place], [address] . tel:[phone] lopez Provider: Blu Garcia, [facility] [place], [address] . tel:[phone] REM PHYSIOL MNTR EA ADDL 20 [facility] , [address] [place] [address], [id number] , tel: [phone] [facility] [place] Essential (primary) hypertensionPresence of cardiac pacemaker 5 Ramadan Blu. [facility] [address] [place], [id number] , . tel: [phone] Referring Provider: Blu Garcia, [address] [place], [address] . tel:[phone] lopez Provider: Blu Garcia [address] [place], [address] . tel:[phone] Family History Family Member Type Diagnosis Age At Onset No Information Payers Payer name Insurance type Covered constitution party ID Authorjoshuaa chanell(s) [facility] MEDICARE ADVANTAGE [address] [id number] Social History Type Description Quantity Date Captured [...]
[2025-04-10] VITALS (23 sets, daily range): BP systolic 144–169; BP diastolic 58–99; PULSE 60–84; RESP 12–23; TEMP 36.6–36.7; O2SAT 96–100; BMI 33.0
--- NOTE | ~2025-04-10 | XR_ITS ---
EXAMINATION: XR chest 1V portable COMPARISON: No comparisons available. HISTORY: weakness FINDINGS: Moderate pulmonary venous congestion. No pneumothorax. Mild cardiomegaly. Mediastinal and hilar contours are within normal limits. Bony thorax no acute abnormality. Miscellaneous: Right pacemaker. Impression: CHF Reviewed, dictated and finalized at location P. Impression: CHF
--- NOTE | ~2025-04-10 | US_ITS ---
Clinical History: Weakness Examination: US carotid duplex BI Comparison: None Technique: Grayscale, color, duplex/spectral Doppler sonography carotid and vertebral arteries. Distal CCA and Peak ICA systolic velocities provided. Society of Radiologists in Ultrasound (SRU) consensus criteria utilized, indirectly assessing stenosis by velocities. Findings: No plaque noted Right side: CCA - 64 cm/sec. ICA - 60 cm/sec. ICA/CCA - 0.9 Left Side: CCA - 52 cm/sec. ICA - 41 cm/sec. ICA/CCA - 0.8 Normal antegrade flow measured bilateral vertebral arteries. IMPRESSION: 1. No hemodynamically significant ICA stenosis (i.e., if any stenosis, less than 50%). 2. Normal bilateral antegrade vertebral artery flow. Stenosis measured by Society of Radiologists in Ultrasound (SRU) criteria. Reviewed, dictated and finalized at location R. IMPRESSION: 1. No hemodynamically significant ICA stenosis (i.e., if any stenosis, less th an 50%). 2. Normal bilateral antegrade vertebral artery flow. Stenosis measured by Society of Radiologists in Ultrasound (SRU) criteria.
--- NOTE | ~2025-04-10 | CT_ITS ---
EXAMINATION: CT brain wo carie, 04/10/2025 16:22 CDT HISTORY: weakness COMPARISON: No comparisons available. Technique: Axial images obtained of the brain without contrast. One or more of the following dose reduction techniques were used: automated exposure control, adjustment of the mA and/or kV according to patient size, use of iterative reconstruction technique. Findings: Remote right basal ganglia lacunar infarct. No acute infarct or hemorrhage. No midline shift or mass effect. No extra-axial fluid collections. Mastoid air cells unremarkable. Sinuses and orbits unremarkable. No acute fracture. No significant facial or scalp soft tissue swelling evident. No radiopaque foreign body is seen. Impression: 1.No acute intracranial abnormality. Reviewed, dictated and finalized at location P. Impression: 1.No acute intracranial abnormality.
--- NOTE | 2025-04-10 13:13 | ECG_ITS ---
Test Date: 2025-04-10 15:19:35 Measurements Intervals [place] Rate: 60 P: 34 PA: 313 QRS: 29 QRSD: 94 T: -87 QT: 431 QTc: 432 Interpretive Statements ELECTRONIC ATRIAL PACEMAKER ST-T WAVE ABNORMALITY IN ANTEROLAT/INF LEADS- CONSIDER ISCHEMIA BASELINE ARTIFACT- I, II, III, AVR, AVL, AVF, V1 ABNORMAL ECG Compared to ECG 02/08/2024 15:57:31 VENTRICULAR PACE PACEMAKER NO LONGER PRESENT Possible ischemia now present Electronically Signed On 04-10-2025 17:11:36 CDT by Johnny Talavera D.O.
--- NOTE | 2025-04-10 13:13 | ED.WEAKNESS ---
HPI - Weakness General Chief complaint: Weakness <Sharon Davey PA-C - Last Filed: 04/11/25 17:11> Stated complaint: WEAK FOR 3 DAYS <Sharon Davey PA-C - Last Filed: 04/11/25 17:11> Time Seen by Provider: 04/10/25 13:13 <Sharon Davey PA-C - Last Filed: 04/11/25 17:11> Focused HPI: This is a 84 year old female that presents to the ER for generalized weakness. Ongoing over the last couple of days. Reports she was told that her hemoglobin is low on outpatient blood work. No bleeding currently. GENERAL: Elderly, well-nourished, and in no acute distress. HEAD: Normocephalic, atraumatic. CHEST: Clear to auscultation. ?No respiratory distress. HEART: Regular rate and rhythm.? NEURO: ?Alert and oriented x3. Patient screened in triage and initial orders placed.? ?Additional care and disposition to be based upon?diagnostic testing and treatment. <Sharon Davey PA-C - Last Filed: 04/11/25 17:11> History of Present Illness HPI Narrative: as per mse. Pt denies Cp or SOB or any focal neurologic signs. Pt denies dysuria or frequency. Pt denies GASTELUM. <Zoe Leija III, DO - Last Filed: 04/10/25 21:24> Related Data Home medications: Home Medications ?Medication ?Instructions ?Recorded ?Confirmed ?Last Taken ?Type citalopram 20 mg tablet 20 mg PO DAILY 08/29/22 04/10/25 04/08/24 History isosorbide mononitrate 30 mg 30 mg PO DAILY 08/29/22 04/10/25 04/08/24 History tablet,extended release 24 hr metformin 500 mg tablet 500 mg PO DAILY 08/29/22 04/10/25 Unknown History primidone 50 mg tablet 150 mg PO Q12H 08/29/22 04/10/25 04/08/24 History simvastatin 40 mg tablet 20 mg PO DAILY 08/29/22 04/10/25 Unknown History aspirin 81 mg tablet 81 mg PO DAILY 04/01/24 04/10/25 Unknown History ciprofloxacin 0.3 %-dexamethasone 4 drp RIGHT EAR Q12H 04/10/25 04/10/25 04/10/25 History 0.1 % ear drops,suspension clonidine HCl 0.2 mg tablet 0.2 mg PO TID 04/10/25 04/10/25 Unknown History hydrocodone 7.5 mg-acetaminophen 1 tablet PO Q6H 04/10/25 04/10/25 Unknown History 325 mg tablet metoprolol tartrate 50 mg tablet 50 mg PO Q12H 04/10/25 04/10/25 Unknown History nifedipine 60 mg tablet,extended 60 mg PO DAILY 04/10/25 04/10/25 Unknown History release 24 hr trazodone 100 mg tablet 100 mg PO HS 04/11/25 04/11/25 Unknown History <Sharon Davey PA-C - Last Filed: 04/11/25 17:11> Allergies/Adverse reactions: Allergies Allergy/AdvReac Type Severity Reaction Status Date / Time erythromycin base Allergy Severe LUMP IN Verified 04/10/25 20:34 THROAT, HIVES morphine Allergy Severe HIVES Verified 04/10/25 20:34 Penicillins Allergy Severe HIVES Verified 04/10/25 20:34 orange Allergy Unknown lips swell Verified 04/10/25 20:34 <Sharon Davey PA-C - Last Filed: 04/11/25 17:11> Review of Systems Review of Systems: All systems reviewed & are unremarkable except as noted in HPI and below <Zoe Leija III, DO - Last Filed: 04/10/25 21:24> [facility] Past Medical History Medical History: Medical History (Updated 04/11/25 @ 17:11 by Sharon Davey PA-C) 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 Vertigo Obesity Arthritis HTN (hypertension) Diabetes Hyperlipidemia <Sharon Davey PA-C - Last Filed: 04/11/25 17:11> Surgical History Surgical History: Surgical History (Updated 04/11/25 @ 00:[address] APRN) H/O lumpectomy H/O cardiac catheterization H/O colonoscopy with polypectomy H/O cataract extraction History of permanent cardiac pacemaker placement History of tubal ligation History of cholecystectomy History of appendectomy <Sharon Davey PA-C - Last Filed: 04/11/25 17:11> Family History Family History: Family History Father Acute myocardial infarction Heart disease Mother Diabetes mellitus Sibling , ovarian cancer COVID-19 Cerebrovascular accident Acute myocardial infarction Diabetes mellitus Hypertension Other Cancer <TREVOR Ayala Last Filed: 04/11/25 17:11> Social History Social History: Social History (Updated 04/11/25 @ 00:[address] APRN) Social History: She lives at home with her . She has 7 children. Code status full code Smoking packs per day: 0.5 Smoking cigarettes per day: 10.0 Years smoked: 10 Smoking pack-years: 5.00 Smoking status: Never smoker Second hand tobacco smoke exposure: No Smoking end date: 06/26/1963 Alcohol intake: never Substance use: never Substance use type: does not use Do You Feel Safe in your Home?: Yes Lack of Transportation: No Lack of Food: Never True Current Housing: I Have Housing Concerned About Future Housing: No Difficulty Paying Gas/Electric Bills: No Difficulty Paying for Meds: No Currently Unemployed: No Education: High School Diploma/GED Difficulty w/ Childcare or Family Care: No Living arrangements: with family Additional living arrangements comments: Occupation/Education: 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[employer] Gender identity (if verbalized by the patient): Female Spiritual care concerns: No <Sharon Davey PA-C - Last Filed: 04/11/25 17:11> Exam Const: General: healthy appearing and no acute distress <Zoe Leija III, DO - Last Filed: 04/10/25 21:24> Nutritional Appearance: well nourished <Zoe Leija III, DO - Last Filed: 04/10/25 21:24> Orientation/consciousness: patient oriented x3 <Zoe Leija III, DO - Last Filed: 04/10/25 21:24> Limitations: no limitations <Zoe Khan Leija III, DO - Last Filed: 04/10/25 21:24> HENMT: Ears: TM's normal bilaterally <Zoe Leija III, DO - Last Filed: 04/10/25 21:24> Eyes: EOM: EOMs intact bilaterally <Zoe Bill Leija III, DO - Last Filed: 04/10/25 21:24> Neck: Neck: normal visual inspection <Zoe Bill Leija III, DO - Last Filed: 04/10/25 21:24> Chest: Chest palpation & inspection: normal inspection of the chest <Zoe Bill Leija III, DO - Last Filed: 04/10/25 21:24> Resp: Effort & Inspection: normal respiratory effort <Zoe Bill Leija III, DO - Last Filed: 04/10/25 21:24> Auscultation: clear to auscultation bilaterally <Zoe Bill Leija III, DO - Last Filed: 04/10/25 21:24> Cardio: Rate: regular rate <Zoe Bill Leija III, DO - Last Filed: 04/10/25 21:24> Rhythm: regular rhythm <Zoe Bill Leija III, DO - Last Filed: 04/10/25 21:24> GI: GI Palp: Yes Soft to palpation and No Tenderness to palpation present (GI) <Zoe Bill Leija III, DO - Last Filed: 04/10/25 21:24> Auscultation: normal bowel sounds <Zoe Bill Leija III, DO - Last Filed: 04/10/25 21:24> Back/Spine/Pelvis: Back: no CVA tenderness <Zoe Bill Leija III, DO - Last Filed: 04/10/25 21:24> Skin: General skin exam: normal color <Zoe Bill Leija III, DO - Last Filed: 04/10/25 21:24> Rashes: no rashes <Zoe Bill Leija III, DO - Last Filed: 04/10/25 21:24> Wounds: no wounds <Zoe Bill Leija III, DO - Last Filed: 04/10/25 21:24> Neuro: General: patient oriented x3, moves all extremities, no meningeal signs, no focal motor deficits and CN's II-XI intact bilaterally <Zoe Bill Leija III, DO - Last Filed: 04/10/25 21:24> Cranial nerves: Yes Nystagmus not present <Zoe Bill Leija III, DO - Last Filed: 04/10/25 21:24> Speech: normal speech <Zoe Bill Leija III, DO - Last Filed: 04/10/25 21:24> Extrem: General: normal to inspection and no clubbing, cyanosis or edema <Zoe Bill Leija III, DO - Last Filed: 04/10/25 21:24> Psych: Mental Status: mental status grossly normal <Zoe Bill Leija III, DO - Last Filed: 04/10/25 21:24> Affect: normal affect <Zoe Bill Leija III, DO - Last Filed: 04/10/25 21:24> Attitude: cooperative <Zoe Bill Leija III, DO - Last Filed: 04/10/25 21:24> Course Vital Signs Vital signs: Vital Signs Temperature 97.9 F 04/10/25 12:28 Pulse Rate 60 04/10/25 12:28 Respiratory Rate 15 04/10/25 12:28 Blood Pressure 144/67 H 04/10/25 12:28 Pulse Oximetry 99 04/10/25 12:28 Oxygen Delivery Room Air 04/10/25 12:28 Temperature 98.1 F 04/11/25 14:00 Pulse Rate 73 04/11/25 16:05 Respiratory Rate 18 04/11/25 14:00 Blood Pressure 128/80 04/11/25 14:00 Pulse Oximetry 100 04/11/25 14:00 Oxygen Delivery Room Air 04/11/25 08:25 <Sharon Davey PA-C - Last Filed: 04/11/25 17:11> Vital Signs Temperature 97.9 F 04/10/25 12:28 Pulse Rate 60 04/10/25 12:28 Respiratory Rate 15 04/10/25 12:28 Blood Pressure 144/67 H 04/10/25 12:28 Pulse Oximetry 99 04/10/25 12:28 Oxygen Delivery Room Air 04/10/25 12:28 Temperature 98.1 F 04/11/25 14:00 Pulse Rate 73 04/11/25 16:05 Respiratory Rate 18 04/11/25 14:00 Blood Pressure 128/80 04/11/25 14:00 Pulse Oximetry 100 04/11/25 14:00 Oxygen Delivery Room Air 04/11/25 08:25 <Zoe Bill Leija III, DO - Last Filed: 04/10/25 21:24> MDM - Weakness MDM Narrative Medical decision making narrative: Pt presents with generalized weakness. ekg abnormal but similar to ekg in past. will check labs and trop and ua and ct brain <Zoe Leija III, DO - Last Filed: 04/10/25 21:24> Differential Diagnosis Differential diagnosis: Likely acute myocardial infarction, anemia, hypoglycemia, sepsis, dehydration and other (electroyte abnormality uti) <Zoe Dillver MAI, DO - Last Filed: 04/10/25 21:24> Medical Records Attestation: I reviewed the patient's medical records. <Zoe Leija III, DO - Last Filed: 04/10/25 21:24> Lab Data Attestation: I reviewed the patient's lab results. <Zoe Dillver MAI, DO - Last Filed: 04/10/25 21:24> Result diagrams: 04/11/25 06:06 04/11/25 06:06 <Sharon Davey PA-C - Last Filed: 04/11/25 17:11> Labs: Lab Results 04/10/25 04/10/25 Range/Units 15:12 16:55 WBC 6.1 (4.5-10.0) K/mm3 RBC 4.34 (4.2-5.4) M/mm3 Hgb 12.4 (12.0-15.0) g/dL Hct 38.9 (37.0-47.0) % MCV 89.6 (80-100) fl MCH 28.6 (26-34) pg MCHC 31.9 L (32-36) g/dl RDW 13.2 (11.5-14.5) % Plt Count 232 (150-375) k/mm3 MPV 10.3 (7.4-10.4) fl Immature Gran % (Auto) 0.2 (0-0.5) % Neut % (Auto) 48.5 (45.5-73.1) % Lymph % (Auto) 40.2 (18.3-44.2) % Kleberg % (Auto) 8.4 (2.6-8.5) % Eos % (Auto) 1.7 (0-4.4) % Baso % (Auto) 1.0 (0.2-1.2) % Lymph # (Auto) 2.43 (0.9-3.2) K/mm3 [place]berg # (Auto) 0.5 (0.1-0.6) K/mm3 Eos # (Auto) 0.1 (0-0.3) K/mm3 Baso # (Auto) 0.1 (0.0-0.1) K/mm3 Abs Immat Gran (auto) 0.01 (0.00-0.031) K/mm3 Absolute Neuts (auto) 2.9 (1.3-6.7) K/mm3 Absolute Nucleated RBC 0.000 (0.0-0.012) K/mm3 Nucleated RBC % 0.0 (0.0-0.2) % Sodium 134 L (137-145) mmol/L Potassium 4.3 (3.4-5.0) mmol/L Chloride 98 (98-107) mmol/L Carbon Dioxide 29 (22-30) mmol/L Anion Gap 7 (4-12) mmol/L BUN 32 H (7-17) mg/dL Creatinine 0.99 (0.7-1.0) mg/dL Estim Creat Clear Calc Not Reportable Estimated GFR 53 L (59 - ) Glucose 117 H (65-110) mg/dL Hemoglobin A1c 5.6 (<5.7) % Calcium 8.8 (8.4-10.2) mg/dL Total Bilirubin 0.2 (0.2-1.3) mg/dL AST 31 (14-36) U/L ALT 20 (6-35) U/L Alkaline Phosphatase 119 (38-126) U/L Troponin I < 0.012 (0.000-0.034) ng/mL NT-Pro-B Natriuret Pep 195 H (19.9-100) pg/mL Total Protein 8.4 H (6.3-8.2) g/dL Albumin 4.2 (3.5-5.1) g/dL Urine Color Yellow (Yellow) Urine Appearance Clear (Clear) Urine pH 5.5 (5.0-9.0) Ur Specific [place] 1.014 (1.001-1.035) Urine Protein Negative (Negative) mg/dL Urine Glucose (UA) Negative (Negative) mg/dL Urine Ketones Negative (Negative) mg/dL Ur Blood (Man) Negative (Negative) Urine Nitrate Negative (Negative) Urine Bilirubin Negative (Negative) Urine Urobilinogen 0.2 (<2.0) mg/dL Add Ur Microanalysis Reviewed Leukocyte Esterase Rfl 1+ H (Negative) PARTHA/UL Urine RBC 0-2 (0-2) /hpf Urine WBC 0-5 (0-3) /hpf Ur Squamous Epith Cells None seen (Few) /hpf Urine Bacteria None seen /hpf Urine Casts 0-2 Blood Type O Positive Antibody Screen Negative <Sharon Davey PA-C - Last Filed: 04/11/25 17:11> Lab Results 04/10/25 04/10/25 Range/Units 15:12 16:55 WBC 6.1 (4.5-10.0) K/mm3 RBC 4.34 (4.2-5.4) M/mm3 Hgb 12.4 (12.0-15.0) g/dL Hct 38.9 (37.0-47.0) % MCV 89.6 (80-100) fl MCH 28.6 (26-34) pg MCHC 31.9 L (32-36) g/dl RDW 13.2 (11.5-14.5) % Plt Count 232 (150-375) k/mm3 MPV 10.3 (7.4-10.4) fl Immature Gran % (Auto) 0.2 (0-0.5) % Neut % (Auto) 48.5 (45.5-73.1) % Lymph % (Auto) 40.2 (18.3-44.2) % Kleberg % (Auto) 8.4 (2.6-8.5) % Eos % (Auto) 1.7 (0-4.4) % Baso % (Auto) 1.0 (0.2-1.2) % Lymph # (Auto) 2.43 (0.9-3.2) K/mm3 [place] # (Auto) 0.5 (0.1-0.6) K/mm3 Eos # (Auto) 0.1 (0-0.3) K/mm3 Baso # (Auto) 0.1 (0.0-0.1) K/mm3 Abs Immat Gran (auto) 0.01 (0.00-0.031) K/mm3 Absolute Neuts (auto) 2.9 (1.3-6.7) K/mm3 Absolute Nucleated RBC 0.000 (0.0-0.012) K/mm3 Nucleated RBC % 0.0 (0.0-0.2) % Sodium 134 L (137-145) mmol/L Potassium 4.3 (3.4-5.0) mmol/L Chloride 98 (98-107) mmol/L Carbon Dioxide 29 (22-30) mmol/L Anion Gap 7 (4-12) mmol/L BUN 32 H (7-17) mg/dL Creatinine 0.99 (0.7-1.0) mg/dL Estim Creat Clear Calc Not Reportable Estimated GFR 53 L (59 - ) Glucose 117 H (65-110) mg/dL Hemoglobin A1c 5.6 (<5.7) % Calcium 8.8 (8.4-10.2) mg/dL Total Bilirubin 0.2 (0.2-1.3) mg/dL AST 31 (14-36) U/L ALT 20 (6-35) U/L Alkaline Phosphatase 119 (38-126) U/L Troponin I < 0.012 (0.000-0.034) ng/mL NT-Pro-B Natriuret Pep 195 H (19.9-100) pg/mL Total Protein 8.4 H (6.3-8.2) g/dL Albumin 4.2 (3.5-5.1) g/dL Urine Color Yellow (Yellow) Urine Appearance Clear (Clear) Urine pH 5.5 (5.0-9.0) Ur Specific [place] 1.014 (1.001-1.035) Urine Protein Negative (Negative) mg/dL Urine Glucose (UA) Negative (Negative) mg/dL Urine Ketones Negative (Negative) mg/dL Ur Blood (Man) Negative (Negative) Urine Nitrate Negative (Negative) Urine Bilirubin Negative (Negative) Urine Urobilinogen 0.2 (<2.0) mg/dL Add Ur Microanalysis Reviewed Leukocyte Esterase Rfl 1+ H (Negative) PARTHA/UL Urine RBC 0-2 (0-2) /hpf Urine WBC 0-5 (0-3) /hpf Ur Squamous Epith Cells None seen (Few) /hpf Urine Bacteria None seen /hpf Urine Casts 0-2 Blood Type O Positive Antibody Screen Negative <Zoe Leija III, DO - Last Filed: 04/10/25 21:24> Imaging Data Radiologist's impression: ITS Impressions Chest X-Ray 04/10/25 16:15 Impression: CHF Head CT 04/10/25 16:33 Impression: 1.No acute intracranial abnormality. <Sharon Davey PA-C - Last Filed: 04/11/25 17:11> ECG Data EKG #1: Attestation: I personally reviewed and interpreted this ECG as follows: <Zoe Bill Leija III, DO - Last Filed: 04/10/25 21:24> Prior ECG tracings: available for review <Zoe Bill Leija III, DO - Last Filed: 04/10/25 21:24> Interpretation: p0aced rhythm rate 60 with t wave inversion in inferior and anterolateral leads. this t wave inversion not present on last ekg but siomilar on ekg prior to that. <Zoe Bill Leija III, DO - Last Filed: 04/10/25 21:24> Discharge Plan Discharge Clinical Impression: General weakness CHF (congestive heart failure) Qualifiers: Heart failure type: unspecified Heart failure chronicity: unspecified Qualified Code(s): I50.9 - Heart failure, unspecified <Sharon Davey PA-C - Last Filed: 04/11/25 17:11> Patient Disposition: Still a Patient <TREVOR Ayala Last Filed: 04/11/25 17:11> Condition: Stable <Sharon Davey PA-C - Last Filed: 04/11/25 17:11>
--- OUTSIDE RECORDS SUMMARY | 2025-04-10 13:39 | XMS_ITS | Clinical Summary ---
Author Organization [facility] [place] Address [address] [place] [address] Care Team Providers Care Care Provider Name Role Phone Zack Downing MD Primary Care Provider [phone] Allergies Active Allergy Reactions Criticality Noted Date Comments Erythromycin Rash Medium 11/03/2023 Erythromycin Base Rash Medium 03/23/2020 Morphine Itching Low 03/23/2020 [place] Anaphylaxis,Other (See comments) High Other Anaphylaxis High 12/22/2009 Penicillin Unknown Low 01/17/2017 Penicillins Rash Medium 03/23/2020 Unclassified Drug Unknown Low 01/17/2017 Medications citalopram (CeleXA) 20 mg tablet TK 1 T PO QD 0 Active fluticasone propionate (FLONASE) 50 mcg/actuation nasal spray fluticasone propionate 50 mcg/actuation nasal spray,suspensio n Active metFORMIN (GLUCOPHAGE) 500 mg tablet TK 1 T PO BID 0 Active simvastatin (ZOCOR) 40 mg tablet simvastatin 40 mg tablet Active traMADoL (ULTRAM) 50 mg tablet TK 1 T PO QID 0 Active triamterene-hydr oCHLOROthiazide 37.5-25 mg per tablet TK 1 T PO QD 0 Active lancets 33 gauge misc OneTouch Delica Plus Lancet 33 gauge USE TO TEST BLOOD SUGAR BID Active blood glucose diagnostic (OneTouch Ultra Blue Test Strip) strip OneTouch Ultra Blue Test Strip USE TO TEST BLOOD GLUCOSE BID Active onabotulinumtoxi nA (BOTOX INJ) Botox q 3 mos 06/06/201 8 Active traZODone (DESYREL) 100 mg tablet Take 1 tablet (100 mg total) by mouth nightly 1 Active amLODIPine (NORVASC) 5 mg tablet Take 1 tablet (5 mg total) by mouth daily 1 Active cinnamon bark 500 mg capsule Cinnamon Activ e aspirin 81 mg enteric coated tablet daily Active furosemide (LASIX) 20 mg tablet Take 1 tablet (20 mg total) by mouth daily as needed 2 Active isosorbide mononitrate ER (IMDUR) 30 mg 24 hr tablet Take 1 tablet (30 mg total) by mouth daily 2 Active polyethylene glycol (MIRALAX) 17 gram/dose powder Take by mouth 0 Active ezetimibe (ZETIA) 10 mg tablet Take 1 tablet (10 mg total) by mouth daily Active HYDROcodone-acet aminophen (NORCO) 10-325 mg per tablet Take 1 tablet by mouth every 6 (six) hours 2 Active meloxicam (MOBIC) 15 mg tablet Take 1 tablet (15 mg total) by mouth daily Active carvediloL (COREG) 12.5 mg tablet Take 0.5 tablets (6.25 mg total) by mouth 2 (two) times a day 2 Active clindamycin (CLEOCIN) 300 mg capsule Take 1 capsule (300 mg total) by mouth 3 (three) times a day 3 Active cloNIDine (CATAPRES) 0.1 mg tablet Take 1 tablet (0.1 mg total) by mouth 3 (three) times a day 3 Active cyclobenzaprine (FLEXERIL) 5 mg tablet Take 1 tablet (5 mg total) by mouth 3 (three) times a day as needed 3 Active isosorbide-hydrA LAZINE (BiDiL) 20-37.5 mg per tablet BiDil 20-37.5 mg tablet 1 Active ketorolac (ACULAR) 0.5 % ophthalmic solution 3 Active meclizine (ANTIVERT) 25 mg tablet Take 1 tablet (25 mg total) by mouth 3 (three) times a day 3 Active ofloxacin (OCUFLOX) 0.3 % ophthalmic solution 3 Active furosemide (LASIX) 20 mg tablet furosemide 20 mg tablet 2 Active acetaminophen-co deine (TYLENOL with CODEINE #3) 300-30 mg per tablet TAKE 1 TABLET BY MOUTH THREE TIMES DAILY PRN Active cephalexin (KEFLEX) 500 mg capsule Take 1 capsule (500 mg total) by mouth 2 (two) times a day 4 Active ciprofloxacin (CIPRO) 500 mg tablet Take 1 tablet (500 mg total) by mouth every 12 (twelve) hours for 10 days 4 Active diazePAM (VALIUM) 5 mg tablet Take 0.5 tablets (2.5 mg total) by mouth 2 (two) times a day [address] (VOLTAREN) 75 mg EC tablet Take 1 tablet (75 mg total) by mouth 2 (two) times a day 4 Active topiramate (TOPAMAX) 25 mg capsule Take 1 capsule (25 mg total) by mouth nightly 90 capsule 3 4 Active Additional Information Patient not taking.Reported on 10/24/2024 metoprolol tartrate (LOPRESSOR) 50 mg immediate release tablet Take 1 tablet (50 mg total) by mouth 2 (two) times a day Active primidone (MYSOLINE) 50 mg tabletIndication s:Tremor, essential Take 2 tablets (100 mg total) by mouth 2 (two) times a day 360 tablet 3 5 10/25/19 26 Active atogepant (Qulipta) 60 mg tablet Take 60 mg by mouth daily 30 tablet 11 5 10/25/19 26 Active Active Problems Problem Noted Date Diagnosed Date Chest pain, unspecified 11/03/2023 Family history of coronary artery disease 2023 Family history of other specified conditions 03/2024 Hearing loss 11/03/2023 Laceration of foot 11/03/2023 Laceration of lip 11/03/2023 Shoulder pain 11/03/2023 Sinusitis 11/03/2023 Vertigo 02/01/2023 Pain in joint of right shoulder 01/24/2023 Fatigue 12/29/2022 Facial swelling 11/09/2022 Abnormal gait 08/04/2022 Pain in limb 07/26/2022 COVID-19 07/04/2022 Cough 06/05/2022 Arthralgia of both knees 09/14/2021 Osteoarthritis of both knees 09/14/2021 Pain of left hip joint 09/14/2021 Onychomycosis of toenail 09/07/2021 Pain in toe 08/15/2021 Paronychia of toe 08/15/2021 Hyponatremia 08/02/2021 Blepharospasm 09/02/2020 Essential (primary) hypertension 03/23/2020 Cervical radiculopathy 03/23/2020 Dyslipidemia 03/23/2020 Low back pain 03/23/2020 Type 2 diabetes mellitus without complication Tremor, essential 03/23/2020 Assessment & Plan (03/18/2021 2:44 PM CDT): Patient continues on primidone 150 mg b.i.d. for essential tremor with good tolerability and efficacy. I have renewed her medication for the upcoming year. She will follow-up in neurology clinic in a year. Assessment & Plan (09/21/2020 11:03 AM CDT): Patient has been noticing increasing head titubation appendicular action and intention tremor despite increase in primidone to 100 mg b.i.d.. She has had no tolerability issues with medication today. I will increase the primidone to 150 mg b.i.d.. I will see her back in 6 months for reassessment. Assessment & Plan (03/23/2020 11:48 AM CDT): Patient is formally followed a [facility] for essential tremor. [facility] medical records have been reviewed during today's visit to facilitate transfer in care to [facility]. She was formally taking primidone 50 mg b.i.d. but has been noticing an increase in appendicular tremor and head titubation. She has had no adverse effects from medication. I will increase her primidone to 100 mg b.i.d. in an effort to further suppress her tremor and head titubation. I will see her back in the office in 6 months. Diabetes mellitus 10/20/2007 Obesity 10/20/2007 Sick sinus syndrome 10/20/2007 Hyperlipidemia 06/26/1959 Surgical History Surgery Date Site/Laterality Comments INSERT / REPLACE / REMOVE PACEMAKER GALLBLADDER SURGERY ORAL SURGERY TUBAL LIGATION Medical History Medical History Date Comments Essential tremor Diabetes Stroke (HCC) Hypertension High cholesterol Family History Medical History Relation Name Comments Bone cancer Brother 1 No Known Problems Brother 2 No Known Problems Brother 3 Heart attack Father Diabetes Mother Ovarian cancer Sister 1 covid Sister 2 Relation Name Status Comments Brother 1 Brother 2 Alive Brother 3 Alive Father Mother Sister 1 Sister 2 Social History Tobacco Use Types Packs/Day Years Used Date Smoking Tobacco: Former Smokeless Tobacco: Never Comments Unknown Sex and Gender Information Value Date Recorded Sex Assigned at Not on file Legal Sex Female 10:34 AM CDT Gender Identity Not on file Sexual Orientation Not on file Obstetrics History Last Filed Vital Signs Vital Sign Reading Time Taken Comments Blood Pressure 110/59 10/24/2024 1:38 PM CDT Pulse 62 10/24/2024 1:38 PM CDT Temperature 36.5 C (97.7 F) 03/09/2022 11:06 AM CDT Respiratory Rate 18 10/24/2024 1:38 PM CDT Oxygen Saturation 97% 10/24/2024 1:38 PM CDT Inhaled Oxygen Concentration - - Weight 80.3 kg (177 lb) 10/24/2024 1:38 PM CDT Height 154.9 cm (5' 1) 10/24/2024 1:38 PM CDT Body Mass Index 33.44 10/24/2024 1:38 PM CDT Plan of Treatment Health Maintenance Due Date Last Done Comments Albumin Creatinine Ratio, Urine 1940 Depression Screening 1940 Fall Risk Assessment 1940 Hemoglobin A1C 1940 eGFR 1940 Dilated Eye Exam 1940 Foot Exam 1940 Lipid Panel 1940 DTaP/Tdap/Td Vaccine (1 - Tdap) 1951 Hepatitis B Screening 1958 Zoster Vaccine (1 of 2) 1990 Well Visit 65+ 2005 Influenza Vaccine (#1) 2025 2, 03/06/2020, 03/06/2020, Additional history exists Osteoporosis Screening-Bone Density Scan 11/28/2025 11/29/2023 Pneumococcal vaccine 65+ Completed 019, 03/16/2018, 03/15/2018, Additional history exists Insurance MEDICARE ADVANTAGE MEDICARE ADVANTAGE Care Teams Care Provider Relationship Specialty Start Date End Date Zack Downing MD PCP - General Internal Medicine 02/24/20
--- OUTSIDE RECORDS SUMMARY | 2025-04-10 13:39 | XMS_ITS | Clinical Summary ---
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 Gender Identity Not on file Sexual Orientation Not on file Plan of Treatment Health Maintenance Due Date Last Done Comments Hepatitis C Virus (HCV) Screening 1940 TdaP Immunization 1940 Zoster Immunization (1 of 2) 1990 Respiratory Syncytial Virus (RSV) Immunization (Adult) (1 - 1-dose 75+ series) 2015 Medicare Initial AWV [id number] 10/25/2023 Influenza Immunization (#1) 02/24/202502/24, 02/16/2019, 02/13/2019, Additional history exists SARS-COV-2 Immunization ( season) 2025 06/02/2021, 09/14/2020, 08/17/2020 Pneumococcal Immunization (50+ years) Completed 05/01/2019, 03/15/2018, 05/13/2015 Pneumococcal Immunization Combined Discontinued 05/01/2019, 03/15/2018, 05/13/2015 Hepatitis B Immunization Aged Out No longer eligible based on patient's age to complete this topic Human Papillomavirus (HPV) Immunization Aged Out No longer eligible based on patient's age to complete this topic Meningococcal Immunization (ACWY) Aged Out No longer eligible based on patient's age to complete this topic Rotavirus Immunization Aged Out No lo nger eligible based on patient's age to complete this topic Insurance MEDICARE C [facility] on file
[2025-04-10 15:22] LABS: Hematocrit 38.9 % (37.0-47.0); Hemoglobin 12.4 g/dL (12.0-15.0); Immature Granulocyte Percent A 0.2 % (0-0.5); Lymphocytes Absolute Auto 2.43 K/mm3 (0.9-3.2); Mean Corpuscular HGB Conc 31.9 g/dl (32-36); Mean Corpuscular Hemoglobin 28.6 pg (26-34); Mean Corpuscular Volume 89.6 fl (80-100); Nucleated Red Blood Cells Absolute Auto 0.000 K/mm3 (0.0-0.012); Nucleated Red Blood Cells Perc 0.0 % (0.0-0.2); Platelet Count Result 232 k/mm3 (150-375); Red Blood Count 4.34 M/mm3 (4.2-5.4); White Blood Count 6.1 K/mm3 (4.5-10.0)
[2025-04-10 15:41] LABS: Alanine Aminotransferase 20 U/L (6-35); Albumin Level 4.2 g/dL (3.5-5.1); Alkaline Phosphatase 119 U/L (38-126); Anion Gap 7 mmol/L (4-12); Aspartate Amino Transferase 31 U/L (14-36); Bilirubin,Total 0.2 mg/dL (0.2-1.3); Blood Urea Nitrogen 32 mg/dL (7-17); Calcium 8.8 mg/dL (8.4-10.2); Carbon Dioxide 29 mmol/L (22-30); Chloride 98 mmol/L (98-107); Estimated Glomerular Filt Rate 53; Glucose 117 mg/dL (65-110); Potassium 4.3 mmol/L (3.4-5.0); Sodium 134 mmol/L (137-145); Total Protein 8.4 g/dL (6.3-8.2)
[2025-04-10 17:25] LABS: NT Pro B Type Natriuretic Pept 195 pg/mL (19.9-100); Troponin I < 0.012 ng/mL (0.000-0.034)
[2025-04-10 17:38] LABS: Add Urine Microscopic? YES; Appearance Urine Clear (Clear); Glucose Urine UA Negative (Negative); Leukocyte Esterase Ur 1+ LEU/UL (Negative); Need Manual Microscopic Reviewed; Nitrate Urine Negative (Negative); Non Pathogenic Casts 0-2; Specific Grav Ur 1.014 (1.001-1.035)
--- OUTSIDE RECORDS SUMMARY | 2025-04-10 17:53 | XMS_ITS | Clinical Summary ---
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
--- OUTSIDE RECORDS SUMMARY | 2025-04-10 17:53 | XMS_ITS | Clinical Summary ---
Author Organization [facility] [place] Address [address] [place] [address] Care Team Providers Care Tire Adjuster Name Role Phone Zack Downing MD Primary Care Provider [phone] Allergies Active Allergy Reactions Criticality Noted Date Comments Erythromycin Rash Medium 11/03/2023 Erythromycin Base Rash Medium 03/23/2020 Morphine Itching Low 03/23/2020 [place] Anaphylaxis,Other (See comments) High Other Anaphylaxis High [...] AM CDT): Patient is formally followed a [facility] for essential tremor. [facility] medical records have been reviewed during today's visit to facilitate transfer in care to [facility]. She was formally taking primidone 50 [...] Insurance MEDICARE ADVANTAGE MEDICARE ADVANTAGE Care Teams Tire Adjuster Relationship Specialty Start Date End Date Zack Downing MD PCP - General Internal Medicine 02/24/20
--- OUTSIDE RECORDS SUMMARY | 2025-04-10 17:53 | XMS_ITS | Data Portability ---
Author Organization [facility] Neto Bray Address [address] 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 Her systolic blood pressure is 142/72 I think we can just monitor as we have adjusted medicine in the past with her she has had marked drops in blood pressure and orthostasis Not available 03/26/2024 21:25:11 07/30/2024 07/30/2024 continue current therapy blood work has been ordered CBC CMP lipid hemoglobin A1c diabetic foot exam follow up in 4 months [email or web address] Not available 08/25/2024 14:21:26 11/29/2024 11/29/2024 Continue current therapy she will follow up in 3 months no adjustments on blood pressure medication she does not want that last time we did it made extremely dizzy she said she will do is try some conservative measures going to watch a little bit more what she eats and caffeine etc. [email or web address] Not available 11/29/2024 14:28:17 03/24/2025 03/24/2025 Over the counter eardrops doxycycline because of her penicillin and erythromycin allergies follow up if not improved [email or web address] Not available 03/24/2025 22:31:46 04/02/2025 04/02/2025 Does not want to do anything about her blood pressure medicine right now she says that has probably up little bit because she does not feel well with the pain that she is having that ENT is evaluating continue current therapy healthy lifestyle care instructions and blood work I will see her back in 3 months Not available 04/02/2025 21:00:34 Plan of Treatment Reminders Order Date Submit Date Provider Last Modified By Organization Details Last Modified Time Details Appointments ANY 15 2025 02:15P M Katerina Downing MD Not available Not available Not available Lab HbA1c (hemoglob in A1c), blood 2024 025 [facility], [address], [place], [address], 04/08/2025 11:14:13 CMP, serum or plasma 2024 025 [place] [facility], [address], [address], [place], [address], 04/08/2025 11:14:12 lipid panel, serum 2024 025 [place] [facility], [address], [address], [place], [address], 04/08/2025 11:14:11 CBC w/ auto diff 2024 025 [place] [facility], [address], [address], [place], [address], 04/08/2025 11:14:14 HbA1c (hemoglob in A1c), blood 2024 025 [place] [facility], [address], [address], [place], [address], 07/31/2024 13:14:13 CBC w/ auto diff 2024 025 [place] [facility], [address], [address], [place], [address], 07/31/2024 13:14:14 CMP, serum or plasma 2024 025 [place] [facility], [address], [place], [address], 07/31/2024 13:14:11 lipid panel, serum 2024 025 [place] [facility], [address], [address], [place], [address], 07/31/2024 13:14:10 HbA1c (hemoglob in A1c), blood 2023 024 [place] [facility], [address], [address], [place], [address], 03/27/2024 08:30:59 CMP, serum or plasma 2023 024 [facility], [address], [address], [place], [address], 03/27/2024 08:30:58 lipid panel, serum 2023 024 [facility], [address], [address], [place], [address], 03/27/2024 08:30:57 CBC w/ auto diff 2023 024 [facility], [address], [place], [address], 03/27/2024 08:31:00 Referral None recorded. Procedures None recorded. Surgeries None recorded. Imaging MAMMO, screening , digital, bilateral [address] [facility] [place], [facility], [place], [address], 04/03/2025 09:31:01 electroca rdiogram 2023 024 [email or web address] In-Office Order, Internal Use Only DO Not Attach Compendium DO Not Attach Compendium, Do Not Delete/merge, [id number] 03/27/2024 09:08:40 Medication Orders doxycycli ne hyclate 100 mg capsule 2024 025 [place] [id number], [address], [place], [id number], 04/02/2025 16:57:33 Patient TargetsNo targets recorded. Patient Instructions Encounter Date Encounter Id Patient Instructions Last Modified By Organization Details Last Modified Time 07/30/2024 [id number] A healthy lifestyle: care instructions [email or web address] Not available 07/30/2024 15:22:33 diabetic foot exam* [email or web address] Not available 04/02/2025 12:24:50 11/29/2024 [id number] A healthy lifestyle: care instructions [email or web address] Not available 11/29/2024 12:04:13 03/24/2025 [id number] A healthy lifestyle: care instructions Not available 03/24/2025 17:19:11 04/02/2025 [id number] A healthy lifestyle: care instructions [email or web address] Not available 04/02/2025 17:54:48 Reason for Referral None Reported. Results Created Date Observation Date Name Description Value Unit Range Abnormal Flag Note LastModifiedBy Organization Detail LastModifiedTime 03/26/2003/27/2024 LIPID PANEL cholesterol, total 197 mg/dL 100-19 9 Not Available [facility] ([facility]) [address] [place], [address], 03/27/2024 08:30:57 03/26/2003/27/2024 LIPID PANEL triglyceride s 76 mg/dL 0-149 Not Available [facility] ([facility]) [address] [place], [address], 03/27/2024 08:30:57 03/26/2003/27/2024 LIPID PANEL HDL cholesterol 75 mg/dL >39 Not Available [facility] ([facility]) [address] [place], [address], 03/27/2024 08:30:57 03/26/2003/27/2024 LIPID PANEL VLDL cholesterol jose 14 mg/dL 5-40 Not Available [facility] ([facility]) [address] [facility], [place], [address], 03/27/2024 08:30:57 03/26/2003/27/2024 LIPID PANEL LDL chol calc ([facility]) 108 mg/dL 0-99 above high normal Not Available [facility] ([facility]) [address] [facility] [place], [address], 03/27/2024 08:30:57 03/26/20 24 03/27/2024 COMP. METAB OLIC PANEL (14) glucose 101 mg/dL 70-99 above high normal Not Available [facility] ([facility]) [address] [facility] [place], [address], 03/27/2024 08:30:58 03/26/20 24 03/27/2024 COMP. METAB OLIC PANEL (14) BUN 23 mg/dL 8-27 Not Available [facility] ([facility]) [address] [facility], [place], [address], 03/27/2024 08:30:58 03/26/20 24 03/27/2024 COMP. METAB OLIC PANEL (14) creatinine 0.93 mg/dL 0.57-1 .00 Not Available [facility] ([facility]) [address] [place], [address], 03/27/2024 08:30:58 03/26/20 24 03/27/2024 COMP. METAB OLIC PANEL (14) eGFR 61 mL/mi n/1.7 3 >59 Not Available [facility] ([facility]) [address] [place], [address], 03/27/2024 08:30:58 03/26/20 24 03/27/2024 COMP. METAB OLIC PANEL (14) BUN/creatini ne ratio 25 12-28 Not Available [facility] ([facility]) [address] [place], [address], 03/27/2024 08:30:58 03/26/20 24 03/27/2024 COMP. METAB OLIC PANEL (14) sodium 132 mmol/ L 134-14 4 below low normal Not Available [facility] ([facility]) [address] [facility], [place], [address], 03/27/2024 08:30:58 03/26/20 24 03/27/2024 COMP. METAB OLIC PANEL (14) potassium 4.9 mmol/ L 3.5-5. 2 Not Available [facility] ([facility]) [address] [facility], [place], [address], 03/27/2024 08:30:58 03/26/2003/27/2024 COMP. METAB OLIC PANEL (14) chloride 95 mmol/ L 96-106 below low normal Not Available [facility] ([facility]) [address] [facility], [place], [address], 03/27/2024 08:30:58 03/26/2003/27/2024 COMP. METAB OLIC PANEL (14) carbon dioxide, total 25 mmol/ L 20-29 Not Available [facility] ([facility]) [address] [facility] [place], [address], 03/27/2024 08:30:58 03/26/20 24 03/27/2024 COMP. METAB OLIC PANEL (14) calcium 9.2 mg/dL 8.7-10 .3 Not Available [facility] ([facility]) [address] [facility] [place], [address], 03/27/2024 08:30:58 03/26/2003/27/2024 COMP. METAB OLIC PANEL (14) protein, total 7.3 g/dL 6.0-8. 5 Not Available [facility] ([facility]) [address] [facility] [place], [address], 03/27/2024 08:30:58 03/26/2003/27/2024 COMP. METAB OLIC PANEL (14) albumin 4.1 g/dL 3.7-4. 7 Not Available [facility] ([facility]) [address] [place], [address], 03/27/2024 08:30:58 03/26/20 24 03/27/2024 COMP. METAB OLIC PANEL (14) globulin, total 3.2 g/dL 1.5-4. 5 Not Available [facility] ([facility]) [address] [place], [address], 03/27/2024 08:30:58 03/26/2003/27/2024 COMP. METAB OLIC PANEL (14) bilirubin, total <0.2 mg/dL 0.0-1. 2 Not Available [facility] ([facility]) [address] [place], [address], 03/27/2024 08:30:58 03/26/20 24 03/27/2024 COMP. METAB OLIC PANEL (14) alkaline phosphatase 117 IU/L 44-121 Not Available [facility] ([facility]) [address] [place], [address], 03/27/2024 08:30:58 03/26/20 24 03/27/2024 COMP. METAB OLIC PANEL (14) AST (SGOT) 18 IU/L 0-40 Not Available [facility] ([facility]) [address] [place], [address], 03/27/2024 08:30:58 03/26/20 24 03/27/2024 COMP. METAB OLIC PANEL (14) ALT (SGPT) 14 IU/L 0-32 Not Available [facility] ([facility]) [address] [place], [address], 03/27/2024 08:30:58 03/26/20 24 03/27/2024 HEMOG LOBIN A1C hemoglobin A1C 5.7 % 4.8-5. 6 above high normal Predi abete s: 5.7 - 6.4 Diabe sukhdev: >6.4 Glyce tom contr ol for adult s with diabe sukhdev: <7.0 Not Available [facility] ([facility]) [address] [facility], [place], [address], 03/27/2024 08:30:59 03/26/2003/27/2024 CBC WITH DIFFE RENTI AL/PL ATELE T WBC 4.9 x10e3 /uL 3.4-10 .8 Not Available [facility] ([facility]) [address] [facility], [place], [address], 03/27/2024 08:30:59 03/26/2003/27/2024 CBC WITH DIFFE RENTI AL/PL ATELE T RBC 4.01 x10e6 /uL 3.77-5 .28 Not Available [facility] ([facility]) [address] [facility], [place], [address], 03/27/2024 08:30:59 03/26/2003/27/2024 CBC WITH DIFFE RENTI AL/PL ATELE T hemoglobin 11.7 g/dL 11.1-1 5.9 Not Available [facility] ([facility]) [address] [facility], [place], [address], 03/27/2024 08:30:59 03/26/2003/27/2024 CBC WITH DIFFE RENTI AL/PL ATELE T hematocrit 35.8 % 34.0-4 6.6 Not Available [facility] ([facility]) [address] [place], [address], 03/27/2024 08:30:59 03/26/2003/27/2024 CBC WITH DIFFE RENTI AL/PL ATELE T MCV 89 fL 79-97 Not Available [facility] ([facility]) [address] [place], [address], 03/27/2024 08:30:59 03/26/2003/27/2024 CBC WITH DIFFE RENTI AL/PL ATELE T MCH 29.2 pg 26.6-3 3.0 Not Available [facility] ([facility]) [address] [facility], [place], [address], 03/27/2024 08:30:59 03/26/2003/27/2024 CBC WITH DIFFE RENTI AL/PL ATELE T MCHC 32.7 g/dL 31.5-3 5.7 Not Available [facility] ([facility]) [address] [facility], [place], [address], 03/27/2024 08:30:59 03/26/2003/27/2024 CBC WITH DIFFE RENTI AL/PL ATELE T RDW 12.9 % 11.7-1 5.4 Not Available [facility] ([facility]) [address] [facility], [place], [address], 03/27/2024 08:30:59 03/26/2003/27/2024 CBC WITH DIFFE RENTI AL/PL ATELE T platelets 263 x10e3 /uL 150-45 0 Not Available [facility] ([facility]) [address] [facility], [place], [address], 03/27/2024 08:30:59 03/26/2003/27/2024 CBC WITH DIFFE RENTI AL/PL ATELE T neutrophils 48 % notest ab. Not Available [facility] ([facility]) [address] [facility], [place], [address], 03/27/2024 08:30:59 03/26/2003/27/2024 CBC WITH DIFFE RENTI AL/PL ATELE T lymphs 39 % notest ab. Not Available [facility] ([facility]) [address] [facility], [place], [address], 03/27/2024 08:30:59 03/26/2018 0403/27/2024 CBC WITH DIFFE RENTI AL/PL ATELE T monocytes 9 % notest ab. Not Available [facility] ([facility]) [address] [facility], [place], [address], 03/27/2024 08:30:59 03/26/20 24 03/27/2024 CBC WITH DIFFE RENTI AL/PL ATELE T eos 3 % notest ab. Not Available [facility] ([facility]) [address] [facility], [place], [address], 03/27/2024 08:30:59 03/26/2003/27/2024 CBC WITH DIFFE RENTI AL/PL ATELE T basos 1 % notest ab. Not Available [facility] ([facility]) [address] [facility], [place], [address], 03/27/2024 08:30:59 03/26/2003/27/2024 CBC WITH DIFFE RENTI AL/PL ATELE T neutrophils (absolute) 2.3 x10e3 /uL 1.4-7. 0 Not Available [facility] ([facility]) [address] [facility], [place], [address], 03/27/2024 08:30:59 03/26/2003/27/2024 CBC WITH DIFFE RENTI AL/PL ATELE T lymphs (absolute) 1.9 x10e3 /uL 0.7-3. 1 Not Available [facility] ([facility]) [address] [facility], [place], [address], 03/27/2024 08:30:59 03/26/2003/27/2024 CBC WITH DIFFE RENTI AL/PL ATELE T monocytes(ab solute) 0.4 x10e3 /uL 0.1-0. 9 Not Available [facility] ([facility]) [address] [facility], [place], [address], 03/27/2024 08:30:59 03/26/20 03/27/2024 CBC WITH DIFFE RENTI AL/PL ATELE T eos (absolute) 0.1 x10e3 /uL 0.0-0. 4 Not Available [facility] ([facility]) [address] [facility], [place], [address], 03/27/2024 08:30:59 03/26/2003/27/2024 CBC WITH DIFFE RENTI AL/PL ATELE T baso (absolute) 0.1 x10e3 /uL 0.0-0. 2 Not Available [facility] ([facility]) [address] [facility], [place], [address], 03/27/2024 08:30:59 03/26/2003/27/2024 CBC WITH DIFFE RENTI AL/PL ATELE T immature granulocytes 0 % notest ab. Not Available [facility] ([facility]) [address] [facility], [place], [address], 03/27/2024 08:30:59 03/26/2003/27/2024 CBC WITH DIFFE RENTI AL/PL ATELE T immature grans (abs) 0.0 x10e3 /uL 0.0-0. 1 Not Available [facility] ([facility]) [address] [place], [address], 03/27/2024 08:30:59 04/10/2004/11/2024 BASIC METAB OLIC PANEL (8) glucose 97 mg/dL 70-99 Not Available [facility] ([facility]) [address] [place], [address], 04/11/2024 06:22:48 04/10/2004/11/2024 BASIC METAB OLIC PANEL (8) BUN 14 mg/dL 8-27 Not Available [facility] ([facility]) [address] [place], [address], 04/11/2024 06:22:48 04/10/2004/11/2024 BASIC METAB OLIC PANEL (8) creatinine 0.95 mg/dL 0.57-1 .00 Not Available [facility] ([facility]) [address] [place], [address], 04/11/2024 06:22:48 04/10/2004/11/2024 BASIC METAB OLIC PANEL (8) eGFR 59 mL/mi n/1.7 3 >59 below low normal Not Available [facility] ([facility]) [address] [facility], [place], [address], 04/11/2024 06:22:48 04/10/2004/11/2024 BASIC METAB OLIC PANEL (8) BUN/creatini ne ratio 15 12-28 Not Available [facility] ([facility]) [address] [facility], [place], [address], 04/11/2024 06:22:48 04/10/2004/11/2024 BASIC METAB OLIC PANEL (8) sodium 137 mmol/ L 134-14 4 Not Available [facility] ([facility]) [address] [place], [address], 04/11/2024 06:22:48 04/10/2004/11/2024 BASIC METAB OLIC PANEL (8) potassium 4.1 mmol/ L 3.5-5. 2 Not Available [facility] ([facility]) [address] [place], [address], 04/11/2024 06:22:48 04/10/2004/11/2024 BASIC METAB OLIC PANEL (8) chloride 100 mmol/ L 96-106 Not Available [facility] ([facility]) [address] [place], [address], 04/11/2024 06:22:48 04/10/20 24 04/11/2024 BASIC METAB OLIC PANEL (8) carbon dioxide, total 23 mmol/ L 20-29 Not Available [facility] ([facility]) [address] [facility], [address], 04/11/2024 06:22:48 04/10/20 24 04/11/2024 BASIC METAB OLIC PANEL (8) calcium 9.4 mg/dL 8.7-10 .3 Not Available [facility] ([facility]) [address] [facility], [address], 04/11/2024 06:22:48 06/04/20 24 06/05/2024 COMP. METAB OLIC PANEL (14) glucose 89 mg/dL 70-99 Not Available [facility] ([facility]) [address] [facility], [address], 06/05/2024 08:26:58 06/04/20 24 06/05/2024 COMP. METAB OLIC PANEL (14) BUN 26 mg/dL 8-27 Not Available [facility] ([facility]) [address] [facility], [address], 06/05/2024 08:26:58 06/04/20 24 06/05/2024 COMP. METAB OLIC PANEL (14) creatinine 0.98 mg/dL 0.57-1 .00 Not Available [facility] ([facility]) [address] [facility], [address], 06/05/2024 08:26:58 06/04/20 24 06/05/2024 COMP. METAB OLIC PANEL (14) eGFR 57 mL/mi n/1.7 3 >59 below low normal Not Available [facility] ([facility]) [address] [facility], [address], 06/05/2024 08:26:58 06/04/20 24 06/05/2024 COMP. METAB OLIC PANEL (14) BUN/creatini ne ratio 27 12-28 Not Available [facility] ([facility]) [address] [facility], [address], 06/05/2024 08:26:58 06/04/20 24 06/05/2024 COMP. METAB OLIC PANEL (14) sodium 139 mmol/ L 134-14 4 Not Available [facility] ([facility]) [address] [facility], [address], 06/05/2024 08:26:58 06/04/20 24 06/05/2024 COMP. METAB OLIC PANEL (14) potassium 4.8 mmol/ L 3.5-5. 2 Not Available [facility] ([facility]) [address] [facility], [address], 06/05/2024 08:26:58 06/04/20 24 06/05/2024 COMP. METAB OLIC PANEL (14) chloride 100 mmol/ L 96-106 Not Available [facility] ([facility]) [address] [facility], [address], 06/05/2024 08:26:58 06/04/20 24 06/05/2024 COMP. METAB OLIC PANEL (14) carbon dioxide, total 26 mmol/ L 20-29 Not Available [facility] ([facility]) [address] [facility], [address], 06/05/2024 08:26:58 06/04/20 24 06/05/2024 COMP. METAB OLIC PANEL (14) calcium 9.1 mg/dL 8.7-10 .3 Not Available [facility] ([facility]) [address] [place], [address], 06/05/2024 08:26:58 06/04/20 24 06/05/2024 COMP. METAB OLIC PANEL (14) protein, total 7.3 g/dL 6.0-8. 5 Not Available [facility] ([facility]) [address] [facility], [address], 06/05/2024 08:26:58 06/04/20 24 06/05/2024 COMP. METAB OLIC PANEL (14) albumin 4.1 g/dL 3.7-4. 7 Not Available [facility] ([facility]) [address] [place], [address], 06/05/2024 08:26:58 06/04/20 24 06/05/2024 COMP. METAB OLIC PANEL (14) globulin, total 3.2 g/dL 1.5-4. 5 Not Available [facility] ([facility]) [address] [place], [address], 06/05/2024 08:26:58 06/04/20 24 06/05/2024 COMP. METAB OLIC PANEL (14) bilirubin, total <0.2 mg/dL 0.0-1. 2 Not Available [facility] ([facility]) [address] [place], [address], 06/05/2024 08:26:58 06/04/20 24 06/05/2024 COMP. METAB OLIC PANEL (14) alkaline phosphatase 108 IU/L 44-121 Not Available [facility] ([facility]) [address] [place], [address], 06/05/2024 08:26:58 06/04/20 24 06/05/2024 COMP. METAB OLIC PANEL (14) AST (SGOT) 19 IU/L 0-40 Not Available [facility] ([facility]) [address] [place], [address], 06/05/2024 08:26:58 06/04/20 24 06/05/2024 COMP. METAB OLIC PANEL (14) ALT (SGPT) 13 IU/L 0-32 Not Available [facility] ([facility]) [address] [place], [address], 06/05/2024 08:26:58 06/04/20 24 06/05/2024 MAGNE SIUM magnesium 2.0 mg/dL 1.6-2. 3 Not Available [facility] ([facility]) [address] [facility], [address], 06/05/2024 08:26:59 07/23/1907/24/2024 T4, FREE T4,free(dire ct) 0.95 NG/dL 0.82-1 .77 Not Available [facility] ([facility]) [address] [facility], [address], 07/24/2024 06:21:32 07/23/19 25 07/24/2024 COMP. METAB OLIC PANEL (14) glucose 91 mg/dL 70-99 Not Available [facility] ([facility]) [address] [facility], [address], 07/24/2024 06:21:34 07/23/19 25 07/24/2024 COMP. METAB OLIC PANEL (14) BUN 30 mg/dL 8-27 above high normal Not Available [facility] ([facility]) [address] [place], [address], 07/24/2024 06:21:34 07/23/1907/24/2024 COMP. METAB OLIC PANEL (14) creatinine 1.02 mg/dL 0.57-1 .00 above high normal Not Available [facility] ([facility]) [address] [place], [address], 07/24/2024 06:21:34 07/23/1907/24/2024 COMP. METAB OLIC PANEL (14) eGFR 54 mL/mi n/1.7 3 >59 below low normal Not Available [facility] ([facility]) [address] [place], [address], 07/24/2024 06:21:34 07/23/19 25 07/24/2024 COMP. METAB OLIC PANEL (14) BUN/creatini ne ratio 29 12-28 above high normal Not Available [facility] ([facility]) [address] [place], [address], 07/24/2024 06:21:34 07/23/19 25 07/24/2024 COMP. METAB OLIC PANEL (14) sodium 136 mmol/ L 134-14 4 Not Available [facility] ([facility]) [address], [place], [address], 07/24/2024 06:21:34 07/23/19 25 07/24/2024 COMP. METAB OLIC PANEL (14) potassium 4.3 mmol/ L 3.5-5. 2 Not Available [facility] ([facility]) [address], [place], [address], 07/24/2024 06:21:34 07/23/19 25 07/24/2024 COMP. METAB OLIC PANEL (14) chloride 97 mmol/ L 96-106 Not Available [facility] ([facility]) [address], [place], [address], 07/24/2024 06:21:34 07/23/19 25 07/24/2024 COMP. METAB OLIC PANEL (14) carbon dioxide, total 25 mmol/ L Not Available [facility] ([facility]) [address], [place], [address], 07/24/2024 06:21:34 07/23/19 25 07/24/2024 COMP. METAB OLIC PANEL (14) calcium 9.3 mg/dL 8.7-10 .3 Not Available [facility] ([facility]) [address], [place], [address], 07/24/2024 06:21:34 07/23/19 25 07/24/2024 COMP. METAB OLIC PANEL (14) protein, total 7.3 g/dL 6.0-8. 5 Not Available [facility] ([facility]) [address], [place], [address], 07/24/2024 06:21:34 07/23/19 25 07/24/2024 COMP. METAB OLIC PANEL (14) albumin 4.1 g/dL 3.7-4. 7 Not Available [facility] ([facility]) [address] [facility], [address], 07/24/2024 06:21:34 07/23/19 25 07/24/2024 COMP. METAB OLIC PANEL (14) globulin, total 3.2 g/dL 1.5-4. 5 Not Available [facility] ([facility]) [address] [facility], [place], [address], 07/24/2024 06:21:34 07/23/19 25 07/24/2024 COMP. METAB OLIC PANEL (14) bilirubin, total 0.2 mg/dL 0.0-1. 2 Not Available [facility] ([facility]) [address] [facility], [place], [address], 07/24/2024 06:21:34 07/23/19 25 07/24/2024 COMP. METAB OLIC PANEL (14) alkaline phosphatase 119 IU/L 44-121 Not Available [facility] ([facility]) [address] [facility], [place], [address], 07/24/2024 06:21:34 07/23/19 25 07/24/2024 COMP. METAB OLIC PANEL (14) AST (SGOT) 16 IU/L 0-40 Not Available [facility] ([facility]) [address] [facility], [place], [address], 07/24/2024 06:21:34 07/23/19 25 07/24/2024 COMP. METAB OLIC PANEL (14) ALT (SGPT) 12 IU/L 0-32 Not Available [facility] ([facility]) [address] [facility], [place], [address], 07/24/2024 06:21:34 07/23/19 25 07/24/2024 MAGNE SIUM magnesium 2.2 mg/dL 1.6-2. 3 Not Available [facility] ([facility]) [address] [place], [address], 07/24/2024 06:21:35 07/23/19 25 07/24/2024 TSH TSH 2.330 uIU/m L 0.450- 4.500 Not Available [facility] ([facility]) [address] [facility], [place], [address], 07/24/2024 06:21:36 07/23/19 25 07/23/2024 CBC WITH DIFFE RENTI AL/PL ATELE T WBC 6.3 x10e3 /uL 3.4-10 .8 Not Available [facility] ([facility]) [address] [facility], [place], [address], 07/24/2024 06:21:37 07/23/19 25 07/23/2024 CBC WITH DIFFE RENTI AL/PL ATELE T RBC 4.31 x10e6 /uL 3.77-5 .28 Not Available [facility] ([facility]) [address] [facility], [place], [address], 07/24/2024 06:21:37 07/23/19 25 07/23/2024 CBC WITH DIFFE RENTI AL/PL ATELE T hemoglobin 12.3 g/dL 11.1-1 5.9 Not Available [facility] ([facility]) [address] [place], [address], 07/24/2024 06:21:37 07/23/19 25 07/23/2024 CBC WITH DIFFE RENTI AL/PL ATELE T hematocrit 37.2 % 34.0-4 6.6 Not Available [facility] ([facility]) [address] [place], [address], 07/24/2024 06:21:37 07/23/19 25 07/23/2024 CBC WITH DIFFE RENTI AL/PL ATELE T MCV 86 fL 79-97 Not Available [facility] ([facility]) [address] [facility], [place], [address], 07/24/2024 06:21:37 07/23/19 25 07/23/2024 CBC WITH DIFFE RENTI AL/PL ATELE T MCH 28.5 pg 26.6-3 3.0 Not Available [facility] ([facility]) [address] [facility], [place], [address], 07/24/2024 06:21:37 07/23/19 25 07/23/2024 CBC WITH DIFFE RENTI AL/PL ATELE T MCHC 33.1 g/dL 31.5-3 5.7 Not Available [facility] ([facility]) [address] [facility], [place], [address], 07/24/2024 06:21:37 07/23/19 25 07/23/2024 CBC WITH DIFFE RENTI AL/PL ATELE T RDW 13.0 % 11.7-1 5.4 Not Available [facility] ([facility]) [address] [facility], [place], [address], 07/24/2024 06:21:37 07/23/19 25 07/23/2024 CBC WITH DIFFE RENTI AL/PL ATELE T platelets 253 x10e3 /uL 150-45 0 Not Available [facility] ([facility]) [address] [facility], [place], [address], 07/24/2024 06:21:37 07/23/19 25 07/23/2024 CBC WITH DIFFE RENTI AL/PL ATELE T neutrophils 52 % notest ab. Not Available [facility] ([facility]) [address] [facility], [place], [address], 07/24/2024 06:21:37 07/23/19 25 07/23/2024 CBC WITH DIFFE RENTI AL/PL ATELE T lymphs 36 % notest ab. Not Available [facility] ([facility]) [address] [facility], [place], [address], 07/24/2024 06:21:37 07/23/1907/23/2024 CBC WITH DIFFE RENTI AL/PL ATELE T monocytes 9 % notest ab. Not Available [facility] ([facility]) [address] [facility], [place], [address], 07/24/2024 06:21:37 07/23/19 25 07/23/2024 CBC WITH DIFFE RENTI AL/PL ATELE T eos 2 % notest ab. Not Available [facility] ([facility]) [address] [facility], [place], [address], 07/24/2024 06:21:37 07/23/19 25 07/23/2024 CBC WITH DIFFE RENTI AL/PL ATELE T basos 1 % notest ab. Not Available [facility] ([facility]) [address] [facility], [place], [address], 07/24/2024 06:21:37 07/23/19 25 07/23/2024 CBC WITH DIFFE RENTI AL/PL ATELE T neutrophils (absolute) 3.3 x10e3 /uL 1.4-7. 0 Not Available [facility] ([facility]) [address] [facility], [place], [address], 07/24/2024 06:21:37 07/23/19 25 07/23/2024 CBC WITH DIFFE RENTI AL/PL ATELE T lymphs (absolute) 2.3 x10e3 /uL 0.7-3. 1 Not Available [facility] ([facility]) [address] [place], [address], 07/24/2024 06:21:37 07/23/19 25 07/23/2024 CBC WITH DIFFE RENTI AL/PL ATELE T monocytes(ab solute) 0.6 x10e3 /uL 0.1-0. 9 Not Available [facility] ([facility]) [address] [facility], [place], [address], 07/24/2024 06:21:37 07/23/19 25 07/23/2024 CBC WITH DIFFE RENTI AL/PL ATELE T eos (absolute) 0.1 x10e3 /uL 0.0-0. 4 Not Available [facility] ([facility]) [address] [place], [address], 07/24/2024 06:21:37 07/23/19 25 07/23/2024 CBC WITH DIFFE RENTI AL/PL ATELE T baso (absolute) 0.1 x10e3 /uL 0.0-0. 2 Not Available [facility] ([facility]) [address] [facility], [place], [address], 07/24/2024 06:21:37 07/23/19 25 07/23/2024 CBC WITH DIFFE RENTI AL/PL ATELE T immature granulocytes 0 % notest ab. Not Available [facility] ([facility]) [address] [place], [address], 07/24/2024 06:21:37 07/23/19 25 07/23/2024 CBC WITH DIFFE RENTI AL/PL ATELE T immature grans (abs) 0.0 x10e3 /uL 0.0-0. 1 Not Available [facility] ([facility]) [address] [place], [address], 07/24/2024 06:21:37 07/23/19 25 07/24/2024 TRIIO DOTHY MARY E (T3), FREE triiodothyro nine (T3), free 2.6 pg/mL 2.0-4. 4 Not Available [facility] ([facility]) [address] [place], [address], 07/24/2024 06:21:38 07/30/19 25 07/31/2024 LIPID PANEL cholesterol, total 198 mg/dL 100-19 9 Not Available [facility] ([facility]) [address] [place], [address], 07/31/2024 13:14:10 07/30/19 25 07/31/2024 LIPID PANEL triglyceride s 102 mg/dL 0-149 Not Available [facility] ([facility]) [address] [place], [address], 07/31/2024 13:14:10 07/30/19 25 07/31/2024 LIPID PANEL HDL cholesterol 71 mg/dL >39 Not Available [facility] ([facility]) [address] [place], [address], 07/31/2024 13:14:10 07/30/19 25 07/31/2024 LIPID PANEL VLDL cholesterol jose 18 mg/dL 5-40 Not Available [facility] ([facility]) [address] [place], [address], 07/31/2024 13:14:10 07/30/19 25 07/31/2024 LIPID PANEL LDL chol calc ([facility]) 109 mg/dL 0-99 above high normal Not Available [facility] ([facility]) [address] [place], [address], 07/31/2024 13:14:10 07/30/19 25 07/31/2024 COMP. METAB OLIC PANEL (14) glucose 90 mg/dL 70-99 Not Available [facility] ([facility]) [address] [place], [address], 07/31/2024 13:14:11 07/30/19 25 07/31/2024 COMP. METAB OLIC PANEL (14) BUN 22 mg/dL 8-27 Not Available [facility] ([facility]) [address] [place], [address], 07/31/2024 13:14:11 07/30/19 25 07/31/2024 COMP. METAB OLIC PANEL (14) creatinine 0.94 mg/dL 0.57-1 .00 Not Available [facility] ([facility]) [address] [facility], [place], [address], 07/31/2024 13:14:11 07/30/19 25 07/31/2024 COMP. METAB OLIC PANEL (14) eGFR 60 mL/mi n/1.7 3 >59 Not Available [facility] ([facility]) [address] [place], [address], 07/31/2024 13:14:11 07/30/19 25 07/31/2024 COMP. METAB OLIC PANEL (14) BUN/creatini ne ratio 23 12-28 Not Available [facility] ([facility]) [address] [facility], [place], [address], 07/31/2024 13:14:11 07/30/19 25 07/31/2024 COMP. METAB OLIC PANEL (14) sodium 137 mmol/ L 134-14 4 Not Available [facility] ([facility]) [address] [place], [address], 07/31/2024 13:14:11 07/30/19 25 07/31/2024 COMP. METAB OLIC PANEL (14) potassium 4.9 mmol/ L 3.5-5. 2 Not Available [facility] ([facility]) [address] [place], [address], 07/31/2024 13:14:11 07/30/19 25 07/31/2024 COMP. METAB OLIC PANEL (14) chloride 99 mmol/ L 96-106 Not Available [facility] ([facility]) [address] [place], [address], 07/31/2024 13:14:11 07/30/19 25 07/31/2024 COMP. METAB OLIC PANEL (14) carbon dioxide, total 26 mmol/ L 20-29 Not Available [facility] ([facility]) [address] [place], [address], 07/31/2024 13:14:11 07/30/19 25 07/31/2024 COMP. METAB OLIC PANEL (14) calcium 9.1 mg/dL 8.7-10 .3 Not Available [facility] ([facility]) [address] [facility], [place], [address], 07/31/2024 13:14:11 07/30/19 25 07/31/2024 COMP. METAB OLIC PANEL (14) protein, total 7.3 g/dL 6.0-8. 5 Not Available [facility] ([facility]) [address] [facility] [place], [address], 07/31/2024 13:14:11 07/30/19 25 07/31/2024 COMP. METAB OLIC PANEL (14) albumin 4.0 g/dL 3.7-4. 7 Not Available [facility] ([facility]) [address] [facility], [place], [address], 07/31/2024 13:14:11 07/30/19 25 07/31/2024 COMP. METAB OLIC PANEL (14) globulin, total 3.3 g/dL 1.5-4. 5 Not Available [facility] ([facility]) [address] [facility] [place], [address], 07/31/2024 13:14:11 07/30/19 25 07/31/2024 COMP. METAB OLIC PANEL (14) bilirubin, total <0.2 mg/dL 0.0-1. 2 Not Available [facility] ([facility]) [address] [facility] [place], [address], 07/31/2024 13:14:11 07/30/19 25 07/31/2024 COMP. METAB OLIC PANEL (14) alkaline phosphatase 127 IU/L 44-121 above high normal Not Available [facility] ([facility]) [address] [facility], [place], [address], 07/31/2024 13:14:11 07/30/19 25 07/31/2024 COMP. METAB OLIC PANEL (14) AST (SGOT) 19 IU/L 0-40 Not Available [facility] ([facility]) [address] [facility], [place], [address], 07/31/2024 13:14:11 07/30/19 25 07/31/2024 COMP. METAB OLIC PANEL (14) ALT (SGPT) 13 IU/L 0-32 Not Available [facility] ([facility]) [address] [facility] [place], [address], 07/31/2024 13:14:11 07/30/19 25 07/31/2024 HEMOG LOBIN A1C hemoglobin A1C 5.9 % 4.8-5. 6 above high normal Predi abete s: 5.7 - 6.4 Diabe sukhdev: >6.4 Glyce tom contr ol for adult s with diabe sukhdev: <7.0 Not Available [facility] ([facility]) [address] [facility], [place], [address], 07/31/2024 13:14:12 07/30/19 25 07/31/2024 CBC WITH DIFFE RENTI AL/PL ATELE T WBC 4.9 x10e3 /uL 3.4-10 .8 Not Available [facility] ([facility]) [address] [place], [address], 07/31/2024 13:14:14 07/30/19 25 07/31/2024 CBC WITH DIFFE RENTI AL/PL ATELE T RBC 4.21 x10e6 /uL 3.77-5 .28 Not Available [facility] ([facility]) [address] [facility], [place], [address], 07/31/2024 13:14:14 07/30/19 25 07/31/2024 CBC WITH DIFFE RENTI AL/PL ATELE T hemoglobin 12.0 g/dL 11.1-1 5.9 Not Available [facility] ([facility]) [address] [facility], [place], [address], 07/31/2024 13:14:14 07/30/19 25 07/31/2024 CBC WITH DIFFE RENTI AL/PL ATELE T hematocrit 37.1 % 34.0-4 6.6 Not Available [facility] ([facility]) [address] [facility], [place], [address], 07/31/2024 13:14:14 07/30/19 25 07/31/2024 CBC WITH DIFFE RENTI AL/PL ATELE T MCV 88 fL 79-97 Not Available [facility] ([facility]) [address] [facility], [place], [address], 07/31/2024 13:14:14 07/30/19 25 07/31/2024 CBC WITH DIFFE RENTI AL/PL ATELE T MCH 28.5 pg 26.6-3 3.0 Not Available [facility] ([facility]) [address] [place], [address], 07/31/2024 13:14:14 07/30/19 25 07/31/2024 CBC WITH DIFFE RENTI AL/PL ATELE T MCHC 32.3 g/dL 31.5-3 5.7 Not Available [facility] ([facility]) [address] [place], [address], 07/31/2024 13:14:14 07/30/19 25 07/31/2024 CBC WITH DIFFE RENTI AL/PL ATELE T RDW 13.0 % 11.7-1 5.4 Not Available [facility] ([facility]) [address] [place], [address], 07/31/2024 13:14:14 07/30/19 25 07/31/2024 CBC WITH DIFFE RENTI AL/PL ATELE T platelets 274 x10e3 /uL 150-45 0 Not Available [facility] ([facility]) [address] [facility], [place], [address], 07/31/2024 13:14:14 07/30/19 25 07/31/2024 CBC WITH DIFFE RENTI AL/PL ATELE T neutrophils 40 % notest ab. Not Available [facility] ([facility]) [address] [facility], [place], [address], 07/31/2024 13:14:14 07/30/19 25 07/31/2024 CBC WITH DIFFE RENTI AL/PL ATELE T lymphs 47 % notest ab. Not Available [facility] ([facility]) [address] [place], [address], 07/31/2024 13:14:14 07/30/19 25 07/31/2024 CBC WITH DIFFE RENTI AL/PL ATELE T monocytes 8 % notest ab. Not Available [facility] ([facility]) [address] [facility], [place], [address], 07/31/2024 13:14:14 07/30/19 25 07/31/2024 CBC WITH DIFFE RENTI AL/PL ATELE T eos 3 % notest ab. Not Available [facility] ([facility]) [address] [place], [address], 07/31/2024 13:14:14 07/30/19 25 07/31/2024 CBC WITH DIFFE RENTI AL/PL ATELE T basos 2 % notest ab. Not Available [facility] ([facility]) [address] [place], [address], 07/31/2024 13:14:14 07/30/19 25 07/31/2024 CBC WITH DIFFE RENTI AL/PL ATELE T neutrophils (absolute) 1.9 x10e3 /uL 1.4-7. 0 Not Available [facility] ([facility]) [address] [facility] [place], [address], 07/31/2024 13:14:14 07/30/19 25 07/31/2024 CBC WITH DIFFE RENTI AL/PL ATELE T lymphs (absolute) 2.3 x10e3 /uL 0.7-3. 1 Not Available [facility] ([facility]) [address] [facility], [place], [address], 07/31/2024 13:14:14 07/30/19 25 07/31/2024 CBC WITH DIFFE RENTI AL/PL ATELE T monocytes(ab solute) 0.4 x10e3 /uL 0.1-0. 9 Not Available [facility] ([facility]) [address] [facility], [place], [address], 07/31/2024 13:14:14 07/30/19 25 07/31/2024 CBC WITH DIFFE RENTI AL/PL ATELE T eos (absolute) 0.2 x10e3 /uL 0.0-0. 4 Not Available [facility] ([facility]) [address] [facility], [place], [address], 07/31/2024 13:14:14 07/30/19 25 07/31/2024 CBC WITH DIFFE RENTI AL/PL ATELE T baso (absolute) 0.1 x10e3 /uL 0.0-0. 2 Not Available [facility] ([facility]) [address] [facility], [place], [address], 07/31/2024 13:14:14 07/30/19 25 07/31/2024 CBC WITH DIFFE RENTI AL/PL ATELE T immature granulocytes 0 % notest ab. Not Available [facility] ([facility]) [address] [facility], [place], [address], 07/31/2024 13:14:14 07/30/19 25 07/31/2024 CBC WITH DIFFE RENTI AL/PL ATELE T immature grans (abs) 0.0 x10e3 /uL 0.0-0. 1 Not Available [facility] ([facility]) [address] [facility], [place], [address], 07/31/2024 13:14:14 03/06/20 24 03/06/2024 nerve condu ction study No observ ation record ed. [facility] [address], [place], [address], 03/07/2024 09:57:42 03/26/20 24 03/27/2024 elect rocar diogr am No observ ation record ed. BLADIMIR In-Office Order Internal Use Only DO Not Attach Compendium DO Not Attach Compendium, Do Not Delete/merge, [id number] 04/03/2024 23:10:00 03/26/20 24 01/03/2023 elect rocar diogr am No observ ation record ed. [email or web address] Not Available 2023 23:10:00 03/26/20 24 02/18/2022 , [facility] ardio gram No observ ation record ed. [email or web address] Not Available 2023 23:10:00 04/02/20 24 03/26/2024 elect rocar diogr am No observ ation record ed. BARCODE In-Office Order Internal Use Only DO Not Attach Compendium DO Not Attach Compendium, Do Not Delete/merge, [id number] 04/02/2024 17:43:27 06/13/20 24 06/13/2024 XR, hip, unila teral , 2 or 3 view No observ ation record ed. [facility] [address], [place], [address], 06/13/2024 21:50:58 06/13/20 24 06/13/2024 XR, hip, unila teral , 2 or 3 view No observ ation record ed. [facility] [address], [place], [address], 06/17/2024 10:03:09 06/24/20 24 06/24/2024 PET, myoca rdial perfu anderson No observ ation record ed. [facility] [address], [place], [address], 06/28/2024 10:27:29 07/18/19 25 07/18/2024 US, echoc ardio gram No observ ation record ed. [facility] [address], [place], [address], 07/19/2024 09:09:07 07/23/19 25 07/23/2024 US, duple x, carot id arter y No observ ation record ed. [facility] [address], [place], [address], 07/24/2024 10:49:43 04/02/20 25 04/02/2025 CT, sinus es, w/o contr ast No observ ation record ed. [facility] [address], [place], [address], 04/07/2025 09:06:07 Result Notes None recorded. Problems Name Problem SNOMED Code Status Onset Date Resolution Date Notes Provider Name and Address Organization Details Recorded Time Type 2 diabetes mellitus 29400180 Active 2023 Yasemin Carias MA null, [place] - [facility] 4 16:19:14 Essential hypertension 20184203 Active 2023 Yasemin Carias [place], [place] [facility] 4 16:19:18 Hyperlipidemia 34359572 Active 2023 Yasemin Carias [place], [place] [facility] 4 16:19:24 Blepharospasm 33202921 Active 2023 Katerina Downing MD Attn: Angelia loo,[address] [facility], [place], [address], [place] [facility] 4 19:19:11 Insomnia 961450460 Active 2024 Katerina Downing MD Attn: Angelia loo,[address] [facility], [place], [address], [place] [facility] 14:20:03 Obesity 869743991 Active 2024 Katerina Downing MD Attn: Angelia loo,[address] [facility], [place], [address], [place] [facility] 14:20:10 Body mass index 30+ - obesity 455114457 Active 2024 Katerina Downing MD Attn: Angelia loo,[address] [facility], [place], [address], [place] [facility] 14:20:12 Problem Notes Documentation Provider Name and Address Organization Details Recorded Time Pain Management Consult Note : This document (1 of ) was received from [email or web address] on 04/04/2024 through Direct Message along with the following message body content: Patient Name: KRYSTA DUARTE. Patient : 1940. Patient . Sonam Ring [facility], [place] - [facility] 05/20/2024 14:50:34 Procedures Surgical History Date Name Laterality Status Provider Name and Address Organization Details Recorded Time 04/08/20 24 Other completed Ernestine Donald [place] - [facility] 04/09/2024 08:54:27 cholecystectomy completed Kasey Rowley [facility] - [facility] 08/29/2023 12:37:47 partial hysterectomy completed Kasey Rowley [facility] - [facility] 08/29/2023 12:37:53 Knee arthroscopy/surger y completed Kasey Rowley [facility] - [facility] 08/29/2023 12:38:07 cardiac pacemaker procedure completed Kasey Rowley [facility] - [facility] 08/29/2023 12:38:17 biopsy of breast completed Lucrecia Rowley [facility] - [facility] 08/29/2023 12:38:28 maintenance procedure for cardiac pacemaker system completed Maya Keller [place] - [facility] 11/28/2023 11:35:13 Imaging Results None recorded. Procedure Notes None recorded. Medical Equipment None Reported. Allergies Allergen ID Allergen Name Allergen Category Reaction Reaction Severity Criticality Documentation Date Start Date Code Code System Note Provider Name and Address Organization Details Recorded Time 454263 erythromy delgado medicatio n rash Not available Not available 08/29/2023 4053 RxNorm SHERICE Mathew null, [place] - [facility] 4 12:31:31 370172 Product containin g penicilli n (product) medicatio n rash Not available Not available 08/29/2023 02656 8001 SNOMED Kasey Rowley RMStefanie [place], [place] [facility] 4 12:31:44 142699 orange food,medi cation anaphylax is Not available Not available 08/29/2023 Kasey Rowley RMStefanie [place] [facility] 4 12:32:01 505232 morphine medicatio n itching Not available Not available 08/29/2023 7052 RxNorm Kasey Rowley RMStefanie [place], [place] [facility] 4 12:32:11 Medications Name Sig Start Date Stop Date Status Note LastModified by Organization Details LastModified Time furosemid e 40 mg tablet TAKE 1 TABLET BY MOUTH EVERY DAY DIRECTED NEEDED active Not Available Not Available No t Available Miralax 17 gram/dose oral powder Take 17 g by oral route as needed. 03/26 completed Not Available Not Available Not Available metformin 500 mg tablet TAKE 1 TABLET BY MOUTH TWICE DAILY active Not Available Not Available No t Available primidone 50 mg tablet TAKE 3 TABLET BY MOUTH EVERY MORNING AND 4 TABLET BY MOUTH EVERY EVENING active Not Available Not Available No t Available carvedilo l 25 mg tablet TAKE 1 TABLET BY MOUTH TWICE DAILY 08/28 completed Not Available Not Available Not Available clonidine HCl 0.1 mg tablet TAKE 1 TABLET BY MOUTH THREE TIMES DAILY 03/26 completed Not Available Not Available Not Available doxycycli ne hyclate 100 mg capsule TAKE 1 CAPSULE BY MOUTH TWICE DAILY FOR 7 DAYS 04/02 completed Not Available Not Available Not Available carvedilo l 12.5 mg tablet TAKE 1 TABLET BY MOUTH TWICE DAILY 08/28 completed Not Available Not Available Not Available clindamyc in HCl 300 mg capsule TAKE 1 CAPSULE BY MOUTH THREE TIMES DAILY FOR 7 DAYS 08/28 completed Not Available Not Available Not Available ofloxacin 0.3 % eye drops 04/02 completed Not Available Not Available Not Available senna 8.6 mg tablet Take 1 tablet every day by oral route as needed. 07/30 completed Not Available Not Available Not Available phenazopy ridine 200 mg tablet TAKE 1 TABLET BY MOUTH EVERY 6 TO 8 HOURS NEEDED 03/26 completed Not Available Not Available Not Available isosorbid e mononitra te ER 30 mg tablet,ex tended release 24 hr TAKE 1 TABLET BY MOUTH EVERY DAY active Not Available Not Available No t Available prednison e 5 mg tablet 08/28 completed Not Available Not Available Not Available ciproflox acin 500 mg tablet Take 1 tablet every 12 hours by oral route for 10 days. 09/20 completed received from ED Not Available Not Available Not Available hydrocodo ne 10 mg-acetam inophen 325 mg tablet TAKE 1 TABLET BY MOUTH EVERY 6 HOURS 08/28 completed Not Available Not Available Not Available tramadol 50 mg tablet TAKE 1 TABLET BY MOUTH EVERY 6 HOURS FOR PAIN 07/30 completed Not Available Not Available Not Available simvastat in 40 mg tablet TAKE 1/2 TABLET BY MOUTH EVERY DAY active Not Available Not Available No t Available ketorolac 0.5 % eye drops 04/02 completed Not Available Not Available Not Available clonidine HCl 0.2 mg tablet TAKE 1 TABLET BY MOUTH THREE TIMES DAILY active Not Available Not Available No t Available citalopra m 20 mg tablet TAKE 1 TABLET BY MOUTH DAILY active Not Available Not Available No t Available prednisol one acetate 1 % eye drops,stephanie pension INSTLL 1 DROP INTO SURGICAL EYE THREE TIMES DAILY [id number] AFTER SURGERY 04/02 completed Not Available Not Available Not Available nifedipin e ER 60 mg tablet,ex tended release 24 hr TAKE 1 TABLET BY MOUTH DAILY active Not Available Not Available No t Available topiramat e 25 mg sprinkle capsule active Not Available Not Available Not Available trazodone 100 mg tablet TAKE 1 TABLET BY MOUTH EVERY NIGHT AT BEDTIME active Not Available Not Available No t Available meclizine 25 mg tablet TAKE 1 TABLET BY MOUTH THREE TIMES DAILY 08/28 completed Not Available Not Available Not Available hydrocodo ne 7.5 mg-acetam inophen 325 mg tablet TAKE 1 TABLET BY MOUTH FOUR TIMES DAILY active Not Available Not Available No t Available cephalexi n 500 mg capsule Take 1 capsule twice a day by oral route. 09/20 completed received via urgent care; reports this did NOT help alleviat e sxs. Not Available Not Available Not Available metoprolo l tartrate 50 mg tablet TAKE 1 TABLET BY MOUTH TWICE DAILY active Not Available Not Available No t Available diclofena c sodium 75 mg tablet,de layed release TAKE 1 TABLET BY MOUTH TWICE DAILY 07/30 completed Not Available Not Available Not Available furosemid e 20 mg tablet TAKE 1 TABLET BY MOUTH EVERY DAY DIRECTED NEEDED 03/26 completed Not Available Not Available Not Available methadone 5 mg tablet TAKE 1/2-1 TABLET BY MOUTH EVERY 8 HRS FOR PAIN 08/28 completed Not Available Not Available Not Available fluticaso ne propionat e 50 mcg/actua tion nasal spray,stephanie pension SHAKE LIQUID AND USE 2 SPRAYS IN EACH NOSTRIL EVERY DAY 08/28 completed Not Available Not Available Not Available doxycycli ne hyclate 100 mg tablet TAKE 1 TABLET BY MOUTH TWICE DAILY FOR 10 DAYS 08/28 completed Not Available Not Available Not Available diazepam 5 mg tablet TAKE 1/2 TABLET BY MOUTH TWICE DAILY 07/30 completed Not Available Not Available Not Available cyclobenz aprine 5 mg tablet TAKE 1 TABLET BY MOUTH THREE TIMES DAILY NEEDED 08/28 completed Not Available Not Available Not Available ciproflox acin 0.3 %-dexamet hasone 0.1 % ear drops,stephanie pension SHAKE LIQUID AND INSTILL 4 DROPS TO AFFECTED EAR TWICE DAILY FOR 7 DAYS active Not Available Not Available No t Available lactulose 10 gram/15 mL oral solution TAKE 30 ML BY MOUTH THREE TIMES DAILY 04/02 completed Not Available Not Available Not Available multivita min active Not Available Not Available Not Available Movantik 25 mg tablet TAKE 1 TABLET BY MOUTH DAILY IN THE MORNING 04/02 completed Not Available Not Available Not Available Fish Oil 1,200 mg (144 mg-216 mg) capsule Take 2 capsules by oral route. 03/26 completed Not Available Not Available Not Available Vitals Date Recorded Body height Body mass index (BMI) Body weight Heart rate Oxygen saturation Oxygen saturation in Arterial blood by Pulse oximetry Systolic And Diastolic Provider Name and Address Organization Details Last Updated DateTime 5 156.85 cm 33.9 kg/m2 75282.3 6 g 70 /min 96 % 96 % 130/70 mm[Hg] [facility] 11:31:35 Date Recorded Body height Body mass index (BMI) Body weight Heart rate Oxygen saturation Oxygen saturation in Arterial blood by Pulse oximetry Systolic And Diastolic Provider Name and Address Organization Details Last Updated DateTime 5 156.85 cm 33.4 kg/m2 39972.3 g 69 /min 97 % 97 % 142/64 mm[Hg] [facility] 11:37:39 Date Recorded Body height Body mass index (BMI) Body weight Heart rate Oxygen saturation Oxygen saturation in Arterial blood by Pulse oximetry Systolic And Diastolic Provider Name and Address Organization Details Last Updated DateTime 5 156.85 cm 34.2 kg/m2 79379.1 g 60 /min 96 % 96 % 152/90 mm[Hg] Maya Krishna, [facility] 5 12:04:30 Date Recorded Body height Body mass index (BMI) Body weight Heart rate Respiratory rate Oxygen saturation Oxygen saturation in Arterial blood by Pulse oximetry Systolic And Diastolic Provider Name and Address Organization Details Last Updated DateTime 4 156.85 cm 34.5 kg/m2 25081.7 7 g 82 /min 18 /min 97 % 97 % 142/72 mm[Hg] Nereyda Dick [facility] 4 10:55:00 Date Recorded Body height Heart rate Oxygen saturation Oxygen saturation in Arterial blood by Pulse oximetry Body mass index (BMI) Body weight Systolic And Diastolic Provider Name and Address Organization Details Last Updated DateTime 5 156.85 cm 76 /min 99 % 99 % 34.8 kg/m2 80931.1 6 g 142/74 mm[Hg] Namrata [facility] 5 16:55:43 Social History Question Answer Notes LastModified by Organizat ion Details LastModified Time Tobacco Smoking Status Former Smoker quit 60 yrs ago- 08/29/23 SHERICE Mathew null, [place] - [facility] 08/29/2023 12:36:22 Do You Have An Advance Directive? No Information not available 11/28/2023 Are You Blind Or Do You Have Difficulty Seeing? No Cataracts Information not available 11/28/2023 What Is Your Level Of Caffeine Consumption? Heavy Information not available 11/28/2023 In The 14 Days Before Symptom Onset, Have You Had Close Contact With A Laboratory-confir med COVID-19 While That Case Was Ill? No Information not available 11/28/2023 In The 14 Days Before Symptom Onset, Have You Had Close Contact With A Person Who Is Under Investigation For COVID-19 While That Person Was Ill? No Information not available 11/28/2023 Have You Been To An Area Known To Be High Risk For COVID-19? No Information not available 11/28/2023 Are You Deaf Or Do You Have Serious Difficulty Hearing? No Information not available 11/28/2023 What Type Of Diet Are You Following? REGULAR Information not available 11/28/2023 Are There Any Guns Present In Your Home? No Information not available 11/28/2023 What Was The Date Of Your Most Recent Tobacco Screening? 04/02/2025 Information not available 04/02/2025 What Is Your Relationship Status? Information not available 11/28/2023 Do You Use Your Seat Belt Or Car Seat Routinely? Yes Information not available 11/28/2023 Do You Have Smoke And Carbon Monoxide Detectors In Your Home? Yes Information not available 11/28/2023 Do You Use Sunscreen Routinely? No Information not available 11/28/2023 Has Tobacco Cessation Counseling Been Provided? No Information not available 07/30/2024 Sex: Female Functional Status Question Answer Note LastModified by Organizat ion Details LastModified Time Do you use any illicit or recreational drugs? No Information not available 11/28/2023 Do you or have you ever used any other forms of tobacco or nicotine? No Information not available 07/30/2024 What is your level of alcohol consumption? None Information not available 11/28/2023 Are you currently employed? No Information not available 11/28/2023 Are you able to care for yourself independently? Yes Information not available 11/28/2023 What is your exercise level? None Information not available 11/28/2023 Mental Status None recorded. Family History Relationship Description Onset Age of this Age Resolved Age Notes LastModified by Organization Details LastModified Time Father Myocardial infarction [email or web address] Not available 10/2023 12:57:40 Mother Kidney disease [email or web address] Not available 10/2023 12:57:49 Mother Diabetes mellitus [email or web address] Not available 10/2023 12:57:57 Sister Diabetes mellitus [email or web address] Not available 10/2023 12:58:02 Brother Malignant neoplastic disease [email or web address] Not available 10/2023 12:58:16 Son Malignant neoplasm of lung [email or web address] Not available 10/2023 12:58:33 Medical History Condition Response Diabetes Y Anxiety Disorder Y Muscle, Joint, or Bone Problems Y High Blood Pressure Y Anemia Y Headaches Y Gynecological History Statement/Question Response If Post Menopausal, Age at Menopause 40 Obstetrics History GPAL:G 0 P 0 0 0 0 Immunizations Vaccine Type Date Status Note Provider Nam e and Address Organization Details Recorded Time Influenza, split virus, quadrivalent, preservative 9 completed Namrata Tinoco [place] null, [place] - [facility] 07/30/2024 11:27:35 Influenza, adjuvanted, trivalent, PF 9 completed Namrata Tinoco [place] [facility] 07/30/2024 11:27:35 Influenza, high-dose, quadrivalent, PF 3 completed Namrata Tin[place] [facility] 07/30/2024 11:27:35 Influenza, high-dose, quadrivalent, PF 1 completed Namrata Tin[place] [facility] 07/30/2024 11:27:35 Influenza, high-dose, quadrivalent, PF 1 completed Namrata Tin[place] [facility] 07/30/2024 11:27:35 Influenza, adjuvanted, quadrivalent, PF 2 [place] ISELA [place] [facility] 07/30/2024 11:27:35 COVID-19, mRNA, LNP-S, PF, 100 mcg/0.5mL dose or 50 mcg/0.25mL dose 1 [place] [facility] 07/30/2024 11:27:35 COVID-19, mRNA, LNP-S, PF, 100 mcg/0.5mL dose or 50 mcg/0.25mL dose 1 [place] [facility] 07/30/2024 11:27:35 COVID-19, mRNA, LNP-S, PF, 100 mcg/0.5mL dose or 50 mcg/0.25mL dose 1 [place] [facility] 07/30/2024 11:27:35 COVID-19, mRNA, LNP-S, bivalent, PF, 50 mcg/0.5 mL or 25mcg/0.25 mL dose 3 [place] [facility] 07/30/2024 11:27:35 COVID-19, mRNA, LNP-S, PF, 50 mcg/0.5 mL 3 [place] [facility] 07/30/2024 11:27:35 pneumococcal polysaccharide PPV23 9 [place] [facility] 07/30/2024 11:27:35 influenza, unspecified formulation 2 [place] [facility] 07/30/2024 11:27:35 Pneumococcal conjugate PCV 13 8 [place] [facility] 07/30/2024 11:27:35 Pneumococcal conjugate PCV 13 5 [place] [facility] 07/30/2024 11:27:35 Influenza, high-dose, trivalent, PF 8 [place] [facility] 07/30/2024 11:27:35 Influenza, high-dose, trivalent, PF 7 completed Namrata Tinoco, [place] [facility] 07/30/2024 11:27:35 Influenza, split virus, trivalent, preservative 3 completed Namrata Tinoco, [place] [facility] 07/30/2024 11:27:35 Influenza, split virus, trivalent, PF 0 completed Namrata Tinoco, [place] [facility] 07/30/2024 11:27:35 Influenza, split virus, trivalent, PF 4 completed Namratakyler Tinoco, [place] [facility] 07/30/2024 11:27:35 Influenza, split virus, quadrivalent, PF 6 completed Namratakyler Tinoco, [place] [facility] 07/30/2024 11:27:35 Influenza, split virus, quadrivalent, PF 5 completed Namratakyler Tinoco, [place] [facility] 07/30/2024 11:27:35 Tdap 5 completed Yasemin Carias [place] [facility] 08/28/2024 14:46:47 Influenza, adjuvanted, trivalent, PF 4 completed Not Available [facility] 04/02/2025 16:36:19 Pneumococcal conjugate PCV21, polysaccharide [id number] conjugate, PF 4 completed Not Available [facility] 04/02/2025 16:36:19 RSV, recombinant, protein subunit RSVpreF, adjuvant reconstituted, 0.5 mL, PF 4 completed Not Available [facility] 04/02/2025 16:36:19 Influenza, adjuvanted, trivalent, PF 5 completed Not Available [facility] 04/02/2025 16:36:19 Past Encounters Encounter ID Performer Location Encounter Start Date Encounter Closed Date Diagnosis/Indication Diagnosis SNOMED-CT Code Diagnosis ICD10 Code Diagnosis IMO Codes Diagnosis Note [id number] Katerina Downing MD [facility] (Adult Med) [address] [place] [address] [phone] 0 08/29/2023 12:14:14 08/29/2023 13:50:51 Type 2 diabetes mellitus 68168210 E11.9 Essential hypertension 32273062 I10 Chronic he adache disorder 257405430 G44.89 Hyperlipidemia 92237127 E78.5 Pain of ri ght elbow joint 4469029560 0603289 M25.521 Tremor 09395226 R25.1 Vertigo 510147510 R42 Urinary tr act infectious disease 45687318 N39.0 Blepharospasm 68684916 G 24.5 [id number] MD [facility] (Adult Med) [address] [place] [address] [phone] 11/28/2023 11:22:44 11/28/2023 12:46:47 Postmenopausal state 60887073 Z78.0 Essential hypertension 30175472 I10 Hyperlipidemia 84214832 E78.5 Type 2 sherrie betes mellitus 65732784 E11.9 Blepharospasm 46690232 G 24.5 [id number] Katerina Downing MD [facility] (Adult Med) [address] [place] [address] [id number] 0 03/26/2024 10:31:14 03/26/2024 12:07:28 Pre-surgery evaluation 428651367 Z01.818 Essential hypertension 18967614 I10 Hyperlipidemia 10689515 E78.5 Type 2 sherrie betes mellitus 93789407 E11.9 [id number] Katerina Downing MD [facility] (Adult Med) [address] [place] [address] [phone] 0 07/30/2024 11:24:35 07/30/2024 12:18:48 Body mass index 30+ - obesity 183814006 Z68.33 Obesity 303163668 E66.9 Essential hypertension 78596308 I10 Hyperlipidemia 52962414 E78.5 Type 2 sherrie betes mellitus 36418269 E11.9 Insomnia 445450426 G47.0 0 [id number] MD [facility] (Adult Med) [address] [place] [address] [phone] 0 11/29/2024 10:59:35 11/29/2024 12:19:32 Body mass index 30+ - obesity 277545034 Z68.33 [id number] Obese class I 8590530084 40321 E66.811 4450602933 Essential hypertension 91409440 I10 Hyperlipidemia 02730847 E78.5 Insomnia 469250534 G47.0 0 Blepharospasm 86187489 G 24.5 Type 2 sherrie betes mellitus 18688787 E11.9 [id number] Katerina Downing MD [facility] [place] [address] [place] [address] 03/24/2025 11:49:31 03/24/2025 12:55:40 Obese class I 4350379734 61430 E66.811 E66.3 3015309652 BMI 34.2 Otalgia of right ear 968 0501498 H92.01 [id number] Katerina Downing MD [facility] ([facility]) [address] [place] [address] [phone] 04/02/2025 16:35:26 04/02/2025 17:46:39 Obese class I 5847771613 51280 E66.811 E66.3 3110232021 BMI 34.8 Essential hypertension 71194129 I10 Type 2 sherrie betes mellitus 08000156 E11.9 Breast jack plasm screening status 842940213 Z12.31 258233 Hyperlipidemia 53374025 E78.5 Blepharospasm 37806062 G 24.5 Insomnia 982597463 G47.0 0 Health Concerns Section Related Observation LastModified by Organization Detai ls LastModified Time None Recorded Concern Status LastModified by Organization Details LastModified Time None Recorded Advance Directives Directive N: Payers Insurance Date Sequence Insurance Name Policy Number Policy Alcocer Covered Member ID Alcocer Member ID Guarantor Name 04/01/2025 1 [facility] (MEDICARE REPLACEMENT/A DVANTAGE - HMO) [id number] Krysta Duarte [id number] Krysta Duarte Notes Date Note Type Note Provider Name and Address Organization Details Recorded Time 03/26/2024 text/html hypertension no headache chronic headache disorder gets Botox blepharospasm Botox hyperlipidemia tries to follow low-fat diet still has swelling of the right elbow joint tremors stable vertigo uses diazepam as needed tremor is stable she has been having some constipation they feel that it might be narcotic induced and they are trying to get her Movantik contemplating doing carpal tunnel surgery no chest pain no shortness a breath Katerina Downing MD Attn: [address] , [place], [address], [place] [facility] 03/26/2024 21:25:31 07/30/2024 text/html anxiety stable dyslipidemia trying to fight watch her diet she needs an A1c for monitoring her diabetes and a diabetic foot examination hypertension her blood pressure is controlled no headaches at this time. Insomnia stable Katerina Downing MD Attn: [address] [facility], [place], [address], [place] [facility] 08/25/2024 14:22:23 11/29/2024 text/html hypertension no headache chronic headache disorder gets Botox blepharospasm Botox hyperlipidemia tries to follow low-fat diet still has swelling of the right elbow joint tremors stable vertigo stable Katerina Downing MD Attn: [address] [facility], [place], [address], [place] [facility] 11/29/2024 14:28:46 03/24/2025 text/html Acute appointment right ear pain hurts in front of her ear to no trauma Katerina Downing MD Attn: [address] [facility], [place], [address], [place] [facility] 03/24/2025 22:32:10 04/02/2025 text/html hypertension no headache chronic headache disorder gets Botox blepharospasm Botox hyperlipidemia tries to follow low-fat diet still has swelling of the right elbow joint tremors stable vertigo stable working through ENT with the ear issues Katerina Downing MD Attn: [address] [facility], [place], [address], [place] [facility] 04/02/2025 21:01:24 OBGyn Episode No OBEpisode recorded.
[2025-04-10] MEDS: FUROSEMIDE INJ 40 MG/4 ML VIAL IV PUSH (18:39)
--- NOTE | 2025-04-10 20:19 | ADMGEN ---
This patient, Krysta Duarte, was admitted to Medical Room 342-01. Patient/family oriented to hospital policies and general routines including ID bracelet, bed and alarms, visiting hours, pain management, procedures, bathroom and other care routines, personal items, smoking policy, room service/diet, and visiting hours. Information on how to activate the Rapid Response Team has been discussed. Patient/Family are encouraged to report perceived risks to care and to ask questions if they do not understand what they are told or what they should do.
[2025-04-11] VITALS (12 sets, daily range): BP systolic 122–137; BP diastolic 65–80; PULSE 63–78; RESP 16–18; TEMP 36.4–36.8; O2SAT 99–100
--- NOTE | 2025-04-11 | ECHO_ITS ---
Patient Info Name: Krysta Duarte Age: 84 years : 1940 Gender: Female Ht: 62 in Wt: 180 lbs BSA: 1.92 m2 HR: 69 bpm BP: 147 / 59 mmHg Technical Quality: Good Exam Date: 04/11/2025 2:46 PM Patient Status: I Admit Date: 04/12/2025 Exam Type: CA echo doppler color flow Complete two-dimensional, color flow and Doppler transthoracic echocardiogram is performed. Staff Referring Physician: Maryana Lane NP Radio Mechanic Apprentice: Donaldo Velazquez III Attending Provider: Jostin Jackson Summary 1. Complete two-dimensional, color flow and Doppler transthoracic echocardiogram is performed. 2. Normal LV size, moderate LVH, normal LV systolic function, ejection fraction calculated at 66%; grade 1 diastolic dysfunction. Normal RV size and systolic function. Mild left atrial enlargement. Linear artifact/pacemaker lead noted in RA/RV. Mild MAC, no significant MR. Mildly sclerotic aortic valve, no hemodynamically significant stenosis. Trace TR, RVSP 33 mmHg. Normal aortic root size. No significant pericardial effusion. Left Ventricular Outflow Tract Name Value Normal LVOT 2D LVOT Diameter 2.4 cm LVOT Doppler LVOT Peak Velocity 81 cm/s LVOT Peak Gradient 3 mmHg LVOT Mean Gradient 2 mmHg LVOT VTI 15 cm LVOT VTI/AV VTI Ratio 0.7 LVOT Stroke Volume 67 ml LVOT CO 4.0 l/min LVOT CI 2.1 l/min/m2 Pulmonic Valve Name Value Normal PV Doppler PV Peak Velocity 73 cm/s PV Peak Gradient 2 mmHg PV Mean Gradient 1 mmHg PV Regurgitation Doppler OK Peak End Diastolic Velocity 102 cm/s Mitral Valve Name Value Normal MV Doppler MV Peak Gradient 3 mmHg MV Mean Gradient 1 mmHg MV Area (Cont Eq VTI) 2.9 cm2 MV Diastolic Function MV E Peak Velocity 60 cm/s MV A Peak Velocity 90 cm/s MV E/A 0.7 MV Decel Time (PW) 300 ms MV Annular TDI MV E/e' (Septal) 12.0 MV E/e' (Lateral) 8.3 MV E/e' (Average) 10.2 Tricuspid Valve Name Value Normal TV Regurgitation Doppler TR Peak Velocity 266 cm/s TR Peak Gradient 28 mmHg Estimated PAP/RSVP RA Pressure 10 mmHg <=5 PA Systolic Pressure 38 mmHg <36 RV Systolic Pressure 38 mmHg <36 TV Annular TDI TV Lateral Opal s' Velocity 9.0 cm/s >=9.5 Aortic Valve Name Value Normal AV Doppler AV Peak Velocity 114 cm/s AV Peak Gradient 5 mmHg AV Mean Gradient 3 mmHg AV VTI 21 cm AV Area (Cont Eq VTI) 3.2 cm2 >=3.0 AV Area (Cont Eq Young) 3.1 cm2 AV DI (Young) 0.71 AV Regurgitation 2D LVOT Area 4.3 cm2 Ventricles Name Value Normal LV Dimensions 2D/MM IVS Diastolic Thickness (2D) 1.4 cm 0.6-1.0 LVID Diastole (2D) 4.1 cm 3.8-5.2 LVIW Diastolic Thickness (2D) 1.4 cm 0.6-0.9 LVID Systole (2D) 2.5 cm 2.2-3.5 LVOT Diameter 2.4 cm LV Mass (2D Cubed) 211.49 g 67.00-162.00 LV Mass Index (2D Cubed) 110 g/m2 43-95 Relative Wall Thickness (2D) 0.68 <=0.42 LV Fractional Shortening/Ejection Fraction 2D/MM LV Fractional Shortening (2D) 38 % 27-45 LV EF (2D Teichholz) 68 % LV Diastolic Volume (4C MOD) 60 ml LV EF (4C MOD) 67 % LV Diastolic Volume (2C MOD) 60 ml LV EF (2C MOD) 63 % LV Diastolic Volume (BP MOD) 61 ml 46-106 LV Diastolic Volume Index (BP MOD) 32 ml/m2 29-61 LV Systolic Volume (BP MOD) 21 ml 14-42 LV Systolic Volume Index (BP MOD) 11 ml/m2 8-24 LV EF (BP MOD) 66 % 54-74 LV Diastolic Length (4C) 7.6 cm LV Systolic Length (4C) 6.2 cm LV Stroke Volume (4C MOD) 40 ml Atria Name Value Normal LA Dimensions LA Volume (4C A-L) 67 ml LA Volume (BP A-L) 74 ml RA Dimensions RA Systolic Major Forreston Length (4C) 4.9 cm 2.2-2.8 RA Area (4C) 16.7 cm2 <=18.0 Report Signatures
--- NOTE | 2025-04-11 00:01 | PM.IMHP ---
H&P: HPI History of Present Illness Date/Time: 04/10/252229 Chief Complaint: Weakness Narrative: This is an 84-year-old female patient who lives with her . She has a history of Parkinson's and stated that she has been feeling weaker recently. She states when she walks she feels like her legs are going to give out. She denies any active bleeding. The patient stated that she was told she has low hemoglobin. The patient is alert and orientated x4 and is talking without difficulty in moving all extremities. She denies any prior history of having a CVA. Her H&H is within normal limits. Her sodium level slightly low at 134. Her estimated GFR is 53 with a BUN of 32. Her blood sugar was 117. BNP 195. Her urine has 1+ leukocyte esterase but is not having any urinary symptoms. Chest x-ray was read as mild cardiomegaly. Mediastinal and hilar contours are within normal limits. Bony thorax no acute abnormality. Right pacemaker. Impression CHF. Moderate pulmonary venous congestion. No pneumothorax. She denies any shortness of breath or chest pain. EKG was read as electronic atrial pacemaker heart rate in the 60s. ST T-wave abnormality. Head CT was read as no acute intracranial abnormality. The patient is being admitted to observation status on the date of service of 04/10/2025. Review of Systems Constitutional: Constitutional: Reports as per HPI and Reports no additional constitutional complaints Eyes: Eyes: Reports as per HPI and Reports no additional eye complaints ENT: Reports system reviewed and no additional complaints, except as documented and Reports Normal hearing present Cardiovascular: Cardiovascular: Reports no additional cardiovascular complaints Respiratory: Respiratory: Reports as per HPI and Reports no additional respiratory complaints Gastrointestinal: Gastrointestinal: Reports as per HPI and Reports no additional gastrointestinal complaints Genitourinary: Genitourinary: Reports no additional female genitourinary complaints Musculoskeletal: Musculoskeletal: Reports no additional musculoskeletal complaints Integumentary/Breasts: Skin/Breast: Reports system reviewed and no additional complaints, except as docu Neurologic: Reports system reviewed and no additional complaints, except as documented and Reports Normal hearing present Psychiatric: Psychiatric: Reports no additional psychiatric complaints and Reports as per HPI Hematologic/Lymphatic: Hematologic/Lymphatic: Reports no additional hematologic/lymphatic complaints Allergic/Immunologic: Allergic/Immunologic: Reports no additional allergic/immunologic complaints [facility] Past Medical History Medical History 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 Vertigo Obesity Arthritis HTN (hypertension) Diabetes Hyperlipidemia Surgical History Surgical History (Updated 04/11/25 @ 00:[address] APRN) H/O lumpectomy H/O cardiac catheterization H/O colonoscopy with polypectomy H/O cataract extraction History of permanent cardiac pacemaker placement History of tubal ligation History of cholecystectomy History of appendectomy Family History Family History Father Acute myocardial infarction Heart disease Mother Diabetes mellitus Sibling , ovarian cancer COVID-19 Cerebrovascular accident Acute myocardial infarction Diabetes mellitus Hypertension Other Cancer Social History Social History (Updated 04/11/25 @ 00:[address] APRN) Social History: She lives at home with her . She has 7 children. Code status full code Smoking packs per day: 0.5 Smoking cigarettes per day: 10.0 Years smoked: 10 Smoking pack-years: 5.00 Smoking status: Never smoker Second hand tobacco smoke exposure: No Smoking end date: 06/26/1963 Alcohol intake: never Substance use: never Substance use type: does not use Do You Feel Safe in your Home?: Yes Lack of Transportation: No Lack of Food: Never True Current Housing: I Have Housing Concerned About Future Housing: No Difficulty Paying Gas/Electric Bills: No Difficulty Paying for Meds: No Currently Unemployed: No Education: High School Diploma/GED Difficulty w/ Childcare or Family Care: No Living arrangements: with family Additional living arrangements comments: Occupation/Education: 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[employer] Gender identity (if verbalized by the patient): Female Spiritual care concerns: No Meds Home Medications and Allergies Home Medications ?Medication ?Instructions ?Recorded ?Confirmed ?Type citalopram 20 mg tablet 20 mg PO DAILY 08/29/22 04/10/25 History isosorbide mononitrate 30 mg 30 mg PO DAILY 08/29/22 04/10/25 History tablet,extended release 24 hr metformin 500 mg tablet 500 mg PO DAILY 08/29/22 04/10/25 History primidone 50 mg tablet 150 mg PO Q12H 08/29/22 04/10/25 History simvastatin 40 mg tablet 20 mg PO DAILY 08/29/22 04/10/25 History aspirin 81 mg tablet 81 mg PO DAILY 04/01/24 04/10/25 History ciprofloxacin 0.3 %-dexamethasone 4 drp RIGHT EAR Q12H 04/10/25 04/10/25 History 0.1 % ear drops,suspension clonidine HCl 0.2 mg tablet 0.2 mg PO TID 04/10/25 04/10/25 History hydrocodone 7.5 mg-acetaminophen 1 tablet PO Q6H 04/10/25 04/10/25 History 325 mg tablet metoprolol tartrate 50 mg tablet 50 mg PO Q12H 04/10/25 04/10/25 History nifedipine 60 mg tablet,extended 60 mg PO DAILY 04/10/25 04/10/25 History release 24 hr trazodone 100 mg tablet 100 mg PO HS 04/11/25 04/11/25 History Allergies Allergy/AdvReac Type Severity Reaction Status Date / Time erythromycin base Allergy Severe LUMP IN Verified 04/10/25 20:34 THROAT, HIVES morphine Allergy Severe HIVES Verified 04/10/25 20:34 Penicillins Allergy Severe HIVES Verified 04/10/25 20:34 orange Allergy Unknown lips swell Verified 04/10/25 20:34 Vital Signs Vital Signs - 24 hr 04/10/25 12:28 04/10/25 15:13 04/10/25 15:33 Temperature 97.9 F Pulse Rate 60 65 60 Respiratory Rate 15 15 18 Blood Pressure 144/67 H 160/84 H Pulse Oximetry 99 99 96 Oxygen Delivery Room Air 04/10/25 15:43 04/10/25 15:45 04/10/25 15:45 Temperature Pulse Rate 64 67 63 Respiratory Rate 12 17 12 Blood Pressure 166/76 H 166/76 H Pulse Oximetry 99 100 100 Oxygen Delivery 04/10/25 16:00 04/10/25 16:01 04/10/25 16:15 Temperature Pulse Rate 84 84 83 Respiratory Rate 16 18 14 Blood Pressure 169/99 H Pulse Oximetry 99 96 100 Oxygen Delivery 04/10/25 16:34 04/10/25 16:45 04/10/25 17:00 Temperature Pulse Rate 60 83 Respiratory Rate 14 13 18 Blood Pressure Pulse Oximetry 99 98 100 Oxygen Delivery 04/10/25 17:15 04/10/25 17:30 04/10/25 17:45 Temperature Pulse Rate 83 84 Respiratory Rate 17 14 Blood Pressure Pulse Oximetry 100 100 99 Oxygen Delivery 04/10/25 18:00 04/10/25 18:15 04/10/25 18:41 Temperature Pulse Rate 83 80 60 Respiratory Rate 20 23 H 13 Blood Pressure Pulse Oximetry 99 98 98 Oxygen Delivery 04/10/25 18:42 04/10/25 18:45 04/10/25 18:45 Temperature Pulse Rate 60 62 64 Respiratory Rate 16 19 19 Blood Pressure 147/58 H 147/58 H Pulse Oximetry 98 99 98 Oxygen Delivery 04/10/25 19:00 04/10/25 19:01 04/10/25 19:15 Temperature Pulse Rate 60 60 83 Respiratory Rate 13 13 12 Blood Pressure 161/68 H Pulse Oximetry 99 98 100 Oxygen Delivery 04/10/25 21:16 Temperature 98.1 F Pulse Rate 68 Respiratory Rate 18 Blood Pressure 147/59 H Pulse Oximetry 98 Oxygen Delivery Exam Const: General: cooperative, healthy appearing, comfortable, no acute distress, well developed, awake, Physically active, average body habitus and well nourished Nutritional Appearance: average body habitus and well nourished Orientation/consciousness: oriented to person, oriented to place, oriented to time and patient oriented x3 Limitations: no limitations HENMT: Head: normal to inspection, No palpable skull fracture present, normocephalic and atraumatic Other: Slight facial droop to the left from Jurado's palsy Eyes: General: appearance normal, both eyes and all related structures Alignment and Position: alignment normal Periorbital: periorbital findings normal Eyelids: eyelids normal Neck: Neck: normal visual inspection and full ROM Chest: Chest palpation & inspection: normal inspection of the chest Resp: Effort & Inspection: normal respiratory effort Cardio: Palpation: normal PMI Rate: regular rate Rhythm: regular rhythm GI: Inspection: normal to inspection Auscultation: normal bowel sounds Back/Spine/Pelvis: Back: no CVA tenderness Skin: General skin exam: normal color Lesions: no lesions Rashes: no rashes Trauma: no lacerations or abrasions Wounds: no wounds Hair: normal Nails: normal Neuro: General: oriented to person, oriented to place, oriented to time and patient oriented x3 Cranial nerves: Yes Equal, round and reactive pupils present and Yes Normal hearing present Cognition (Neuro): normal cognition Speech: normal speech Motor exam (neuro): 5/5 motor strength present throughout Sensory Exam: normal sensation Extrem: General: normal to inspection Right upper extremity: normal to inspection and shoulder/upper arm Left upper extremity: normal to inspection and shoulder/upper arm Right lower extremity: normal to inspection Left lower extremity: normal to inspection Psych: Appearance: grossly normal Mental Status: mental status grossly normal Speech and movement: Normal speech and movement present Affect: normal affect Attitude: cooperative Thought process: Normal thought process present Thought content: Yes Normal thought content present Insight: Good insight present (Psych) Judgement: Good judgement present (Psych) H&P: Results Labs Labs: Short CBC 04/10/25 Range/Units 15:12 WBC 6.1 (4.5-10.0) K/mm3 Hgb 12.4 (12.0-15.0) g/dL Hct 38.9 (37.0-47.0) % Plt Count 232 (150-375) k/mm3 BMP 04/10/25 15:12 Sodium 134 L Potassium 4.3 Chloride 98 Carbon Dioxide 29 BUN 32 H Creatinine 0.99 Glucose 117 H Calcium 8.8 Cardiac Enzymes 04/10/25 Range/Units 15:12 Troponin I < 0.012 (0.000-0.034) ng/mL Liver Function 04/10/25 Range/Units 15:12 Total Bilirubin 0.2 (0.2-1.3) mg/dL AST 31 (14-36) U/L ALT 20 (6-35) U/L Alkaline Phosphatase 119 (38-126) U/L Albumin 4.2 (3.5-5.1) g/dL Urine 04/10/25 Range/Units 16:55 Urine Color Yellow (Yellow) Urine Appearance Clear (Clear) Urine pH 5.5 (5.0-9.0) Ur Specific [place] 1.014 (1.001-1.035) Urine Protein Negative (Negative) mg/dL Urine Glucose (UA) Negative (Negative) mg/dL ECG Interpretation: ELECTRONIC ATRIAL PACEMAKER ST-T WAVE ABNORMALITY IN ANTEROLAT/INF LEADS- CONSIDER ISCHEMIA BASELINE ARTIFACT- I, II, III, AVR, AVL, AVF, V1 ABNORMAL ECG Compared to ECG 02/08/2024 15:57:31 VENTRICULAR PACE PACEMAKER NO LONGER PRESENT Possible ischemia now present Imaging Chest x-ray: Radiologist's impression: Impressions Chest X-Ray 04/10/25 16:15 Impression: CHF Head CT 04/10/25 16:33 Impression: 1.No acute intracranial abnormality. Assessment and Plan Assessment and plan (1) General weakness: Code(s): R53.1 - Weakness Status: Acute Assessment and Plan: -labs are within normal limits. -the patient has a history of Parkinson's. She stated that she feels that her legs are giving out and that she has a shuffling walk. -no infectious process seen at this time. 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 -CT of the brain was negative. She has no focal weakness. -an MRI and carotid Dopplers have been ordered. -neurology consult has been placed due to the Parkinson's. -EKG was read asELECTRONIC ATRIAL PACEMAKER ST-T WAVE ABNORMALITY IN ANTEROLAT/INF LEADS- CONSIDER ISCHEMIA BASELINE ARTIFACT- I, II, III, AVR, AVL, AVF, V1 ABNORMAL ECG Compared to ECG 02/08/2024 15:57:31 VENTRICULAR PACE PACEMAKER NO LONGER PRESENT Possible ischemia now present -check cardiac enzymes. (2) CHF (congestive heart failure): Code(s): I50.9 - Heart failure, unspecified Status: Acute Assessment and Plan: -chest x-ray impression was CHF. The patient denies that she has ever been diagnosed with CHF. -an echo has been ordered. -she denies any shortness of breath. And she has no edema to lower extremities. -may consider consult for Cardiology (3) HTN (hypertension): Code(s): I10 - Essential (primary) hypertension Status: Acute Assessment and Plan: -blood pressure 147/59. -continue with nifedipine -continue with metoprolol -continue with clonidine (4) Hyperlipidemia: Code(s): E78.5 - Hyperlipidemia, unspecified Status: Acute Assessment and Plan: -continue 8 over statin monitor liver enzymes. (5) Diabetes: Code(s): E11.9 - Type 2 diabetes mellitus without complications Status: Acute Assessment and Plan: -her A1c is 5.6. -her metformin is on hold at this time. -sliding scale insulin with Accu-Cheks AC and HS. 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 -PT OT has been it consulted -neurology has been consulted. Quality VTE Prophylaxis VTE prophylaxis: mechanical ordered Stroke Scale Stroke scale date:: 04/11/25 1a Level of conciousness: alert-0 1b Level of consciousness: answers both correctly-0 1c Level of consciousness: obeys both correctly-0 2 Best gaze: normal-0 3 Visual: no visual loss-0 4 Facial palsy: partial paralysis-2 5a Motor: left arm: no drift-0 5b Motor: right arm: no drift-0 6a Motor: left leg: no drift-0 6b Motor: right leg: no drift-0 7 Limb ataxia: absent-0 8 Sensory: normal-0 9 Best language: no aphasia-0 10 Dysarthria: normal-0 11 Extinction and inattention: no abnormality-0 Level:: 2 Comment: 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
[2025-04-11 00:03] LABS: Hemoglobin A1C 5.6 % (<5.7)
[2025-04-11] MEDS: METOPROLOL TARTRATE 50 MG TAB PO ×3 (00:11→22:04)
[2025-04-11] MEDS: PRIMIDONE 50 MG TABLET 150 MG PO ×3 (00:52→22:05)
[2025-04-11 01:10] LABS: Troponin I 0.022 ng/mL (0.000-0.034)
[2025-04-11 03:52] LABS: Troponin I 0.023 ng/mL (0.000-0.034)
[2025-04-11 06:32] LABS: Hematocrit 36.6 % (37.0-47.0); Hemoglobin 11.8 g/dL (12.0-15.0); Mean Corpuscular HGB Conc 32.2 g/dl (32-36); Mean Corpuscular Hemoglobin 28.7 pg (26-34); Mean Corpuscular Volume 89.1 fl (80-100); Platelet Count Result 211 k/mm3 (150-375); Red Blood Count 4.11 M/mm3 (4.2-5.4); White Blood Count 4.5 K/mm3 (4.5-10.0)
[2025-04-11 06:57] LABS: Anion Gap 4 mmol/L (4-12); Blood Urea Nitrogen 26 mg/dL (7-17); Calcium 8.7 mg/dL (8.4-10.2); Carbon Dioxide 31 mmol/L (22-30); Chloride 97 mmol/L (98-107); Estimated CRCL calculation 37 ml/min; Estimated Glomerular Filt Rate 54; Glucose 102 mg/dL (65-110); Magnesium 2.2 mg/dL (1.6-2.3); Potassium 3.8 mmol/L (3.4-5.0); Sodium 132 mmol/L (137-145)
[2025-04-11 07:05] LABS: Troponin I 0.020 ng/mL (0.000-0.034)
--- NOTE | 2025-04-11 08:10 | P.PNIM_ITS ---
Progress Note: A&P Assessment and Plan (1) General weakness: Code(s): R53.1 - Weakness Status: Acute Assessment and Plan: -labs are within normal limits. -the patient has a history of Parkinson's. She stated that she feels that her legs are giving out and that she has a shuffling walk. -no infectious process seen at this time. -she has an old facial droop to the left side of her face that she stated this i s from Jurado's palsy. -CT of the brain was negative. She has no focal weakness. -an MRI and carotid Dopplers have been ordered. -neurology consult has been placed due to the Parkinson's. -EKG was read asELECTRONIC ATRIAL PACEMAKER ST-T WAVE ABNORMALITY IN ANTEROLAT/INF LEADS- CONSIDER ISCHEMIA BASELINE ARTIFACT- I, II, III, AVR, AVL, AVF, V1 ABNORMAL ECG Compared to ECG 02/08/2024 15:57:31 VENTRICULAR PACE PACEMAKER NO LONGER PRESENT Possible ischemia now present -check cardiac enzymes. 04/11: Continue with workup, pt agreeable with therapy for eval and treat. Reports BLE weakness x3 days, no abnormality seen upon examination today. -Brain MRI unable to be performed, pt with pacemaker -Carotid US: IMPRESSION: 1. No hemodynamically significant ICA stenosis (i.e., if any stenosis, less than 50%). 2. Normal bilateral antegrade vertebral artery flow. -Pending ECHO -Neuro to round on pt tomorrow (no coverage today) (2) CHF (congestive heart failure): Code(s): I50.9 - Heart failure, unspecified Status: Acute Assessment and Plan: -chest x-ray impression was CHF. The patient denies that she has ever been diagnosed with CHF. -an echo has been ordered. -she denies any shortness of breath. And she has no edema to lower extremities. -may consider consult for Cardiology 04/11: Pt denies SOB or CP. -ECHO pending (3) HTN (hypertension): Code(s): I10 - Essential (primary) hypertension Status: Acute Assessment and Plan: -blood pressure 147/59. -continue with nifedipine -continue with metoprolol -continue with clonidine 04/11: Stable BPs, continue medications. (4) Hyperlipidemia: Code(s): E78.5 - Hyperlipidemia, unspecified Status: Acute Assessment and Plan: -continue home statin, monitor liver enzymes. (5) Diabetes: Code(s): E11.9 - Type 2 diabetes mellitus without complications Status: Acute Assessment and Plan: -her A1c is 5.6. -her metformin is on hold at this time. -sliding scale insulin with Accu-Cheks AC and HS. 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 -PT OT has been it consulted -neurology has been consulted. 04/11: Neuro will consult tomorrow, no coverage today. Plan ECHO results, PT/OT eval, neuro consult, cards consult? Time Spent With Patient Time: 35 Subjective Date/time seen: 04/11/25 1200 Interval history: Pt resting comfortably in bed upon my arrival. 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 She reports weakness in her BLE x3 days now and normally she is an active individual. She is agreeable with the workup and therapy. Review of Systems Constitutional: Constitutional: Reports as per HPI and Reports no additional constitutional complaints Eyes: Eyes: Reports as per HPI and Reports no additional eye complaints ENT: Reports system reviewed and no additional complaints, except as documented and Reports Normal hearing present Cardiovascular: Cardiovascular: Reports no additional cardiovascular complaints Respiratory: Respiratory: Reports as per HPI and Reports no additional respiratory complaints Gastrointestinal: Gastrointestinal: Reports as per HPI and Reports no additional gastrointestinal complaints Genitourinary: Genitourinary: Reports no additional female genitourinary complaints Musculoskeletal: Musculoskeletal: Reports no additional musculoskeletal complaints Integumentary/Breasts: Skin/Breast: Reports system reviewed and no additional complaints, except as docu Neurologic: Reports system reviewed and no additional complaints, except as documented and Reports Normal hearing present Psychiatric: Psychiatric: Reports no additional psychiatric complaints and Reports as per HPI Hematologic/Lymphatic: Hematologic/Lymphatic: Reports no additional hematologic/lymphatic complaints Allergic/Immunologic: Allergic/Immunologic: Reports no additional allergic/immunologic complaints Exam Const: General: cooperative, healthy appearing, comfortable, no acute distress, well developed, awake, Physically active, average body habitus and well nourished Nutritional Appearance: average body habitus and well nourished Orientation/consciousness: oriented to person, oriented to place, oriented to time and patient oriented x3 Limitations: no limitations HENMT: Head: normal to inspection, No palpable skull fracture present, normocephalic and atraumatic Other: Slight facial droop to the left from Jurado's palsy Eyes: General: appearance normal, both eyes and all related structures Alignment and Position: alignment normal Periorbital: periorbital findings normal Eyelids: eyelids normal Pupils: Equal, round and reactive pupils present Neck: Neck: normal visual inspection and full ROM Chest: Chest palpation & inspection: normal inspection of the chest Resp: Effort & Inspection: normal respiratory effort Cardio: Palpation: normal PMI Rate: regular rate Rhythm: regular rhythm GI: Inspection: normal to inspection Auscultation: normal bowel sounds : General: Yes no CVA tenderness Back/Spine/Pelvis: Back: no CVA tenderness Skin: General skin exam: normal color Lesions: no lesions Rashes: no rashes Trauma: no lacerations or abrasions Wounds: no wounds Hair: normal Nails: normal Neuro: General: oriented to person, oriented to place, oriented to time and patient oriented x3 Cranial nerves: Yes Equal, round and reactive pupils present and Yes Normal hearing present Cognition (Neuro): normal cognition Speech: normal speech Motor exam (neuro): 5/5 motor strength present throughout Sensory Exam: normal sensation Extrem: General: normal to inspection Right upper extremity: normal to inspection and shoulder/upper arm Left upper extremity: normal to inspection and shoulder/upper arm Right lower extremity: normal to inspection Left lower extremity: normal to inspection Psych: Appearance: grossly normal Mental Status: mental status grossly normal Speech and movement: Normal speech and movement present Affect: normal affect Attitude: cooperative Thought process: Normal thought process present Insight: Good insight present (Psych) Judgement: Good judgement present (Psych) Objective Data Vital Signs Vital Signs: Vital Signs - 24 hr 04/10/25 12:28 04/10/25 15:13 04/10/25 15:33 Temperature 97.9 F Pulse Rate 60 65 60 Respiratory Rate 15 15 18 Blood Pressure 144/67 H 160/84 H Pulse Oximetry 99 99 96 Oxygen Delivery Room Air 04/10/25 15:43 04/10/25 15:45 04/10/25 15:45 Temperature Pulse Rate 64 67 63 Respiratory Rate 12 17 12 Blood Pressure 166/76 H 166/76 H Pulse Oximetry 99 100 100 Oxygen Delivery 04/10/25 16:00 04/10/25 16:01 04/10/25 16:15 Temperature Pulse Rate 84 84 83 Respiratory Rate 16 18 14 Blood Pressure 169/99 H Pulse Oximetry 99 96 100 Oxygen Delivery 04/10/25 16:34 04/10/25 16:45 04/10/25 17:00 Temperature Pulse Rate 60 83 Respiratory Rate 14 13 18 Blood Pressure Pulse Oximetry 99 98 100 Oxygen Delivery 04/10/25 17:15 04/10/25 17:30 04/10/25 17:45 Temperature Pulse Rate 83 84 Respiratory Rate 17 14 Blood Pressure Pulse Oximetry 100 100 99 Oxygen Delivery 04/10/25 18:00 04/10/25 18:15 04/10/25 18:41 Temperature Pulse Rate 83 80 60 Respiratory Rate 20 23 H 13 Blood Pressure Pulse Oximetry 99 98 98 Oxygen Delivery 04/10/25 18:42 04/10/25 18:45 04/10/25 18:45 Temperature Pulse Rate 60 62 64 Respiratory Rate 16 19 19 Blood Pressure 147/58 H 147/58 H Pulse Oximetry 98 99 98 Oxygen Delivery 04/10/25 19:00 04/10/25 19:01 04/10/25 19:15 Temperature Pulse Rate 60 60 83 Respiratory Rate 13 13 12 Blood Pressure 161/68 H Pulse Oximetry 99 98 100 Oxygen Delivery 04/10/25 21:16 04/11/25 00:00 04/11/25 00:11 Temperature 98.1 F Pulse Rate 68 64 73 Respiratory Rate 18 Blood Pressure 147/59 H Pulse Oximetry 98 Oxygen Delivery 04/11/25 04:00 Temperature Pulse Rate 69 Respiratory Rate Blood Pressure Pulse Oximetry Oxygen Delivery Intake/Output Intake/Output: Intake & Output 04/08/25 04/09/25 04/10/25 04/11/25 23:59 23:59 23:59 23:59 Output Total 400 Balance -400 Meds/Results Medications: Active Medications Generic Name Dose Route Start Last Admin Trade Name Freq PRN Reason Stop Dose Admin Hydrocodone Bitart/Acetaminophen 1 tab 04/11/25 00:16 Hydrocodone/Acetaminophen (*Crx) 7.5-325 Mg Tablet PO Q6H PRN pain 3-6 Citalopram Hydrobromide 20 mg 04/11/25 09:00 Citalopram Hydrobromide 20 Mg Tablet PO DAILY [facility] Clonidine HCl 0.2 mg 04/10/25 23:45 04/11/25 00:11 Clonidine Hcl 0.2 Mg Tablet PO 0.2 mg TID FRANSISCO Administration Dextrose 12.5 gm 04/10/25 23:44 Dextrose 50% 25 Gm/50 Ml Syringe IV PUSH PRN PRN Hypoglycemia Protocol Glucagon 1 mg 04/10/25 23:44 Glucagon For Inj 1 Mg Vial IM PRN PRN Hypoglycemia Protocol Glucose 15 gm 04/10/25 23:44 Glucose Oral Gel 15 Gm Of Glucse In 37.5 Gm Tube PO PRN PRN Hypoglycemia Protocol Dextrose 1,000 mls @ 100 mls/hr 04/10/25 23:44 Dextrose 5% 1,000 Ml IVPB PRN PRN Hypoglycemia Protocol Insulin Aspart 2 - 5 units 04/11/25 08:00 Insulin Aspart (*Bkc) 100 Units/Ml SUB-Q TIDWM FR[facility]ISCO Protocol Isosorbide Mononitrate 30 mg 04/11/25 09:00 Isosorbide Mononitrate 30 Mg Tab.Er.24h PO DAILY [facility] Metoprolol Tartrate 50 mg 04/10/25 23:45 04/11/25 00:11 Metoprolol Tartrate 50 Mg Tab PO 50 mg Q12HR [facility] Administration Nifedipine 60 mg 04/11/25 09:00 Nifedipine 30 Mg Tab.Er.24 PO DAILY [facility] Perflutren Lipid Microsphere 0 ml 04/11/25 00:07 Perflutren Lipid Microspheres 1.5 Ml Vial Diluted To 10 Ml Total Volume IV PUSH 04/14/25 00:07 ONCE PRN adequate visualization Protocol Primidone 150 mg 04/11/25 00:25 04/11/25 00:52 Primidone 50 Mg Tablet PO 150 mg Q12HR [facility] Administration Simvastatin 20 mg 04/11/25 09:00 Simvastatin 20 Mg Tablet PO DAILY [facility] Trazodone HCl 100 mg 04/11/25 00:20 04/11/25 00:31 Trazodone Hcl 50 Mg Tablet PO 100 mg HS [facility]ISCO Administration Radiology Results: ITS Impressions Chest X-Ray 04/10/25 16:15 Impression: CHF Head CT 04/10/25 16:33 Impression: 1.No acute intracranial abnormality. Labs Labs: Laboratory Results - last 24 hr 04/10/25 04/10/25 04/11/25 15:12 16:55 00:33 WBC 6.1 RBC 4.34 Hgb 12.4 Hct 38.9 MCV 89.6 MCH 28.6 MCHC 31.9 L RDW 13.2 Plt Count 232 MPV 10.3 Immature Gran % (Auto) 0.2 Neut % (Auto) 48.5 Lymph % (Auto) 40.2 Sullivan % (Auto) 8.4 Eos % (Auto) 1.7 Baso % (Auto) 1.0 Lymph # (Auto) 2.43 Sullivan # (Auto) 0.5 Eos # (Auto) 0.1 Baso # (Auto) 0.1 Abs Immat Gran (auto) 0.01 Absolute Neuts (auto) 2.9 Absolute Nucleated RBC 0.000 Nucleated RBC % 0.0 Sodium 134 L Potassium 4.3 Chloride 98 Carbon Dioxide 29 Anion Gap 7 BUN 32 H Creatinine 0.99 Estim Creat Clear Calc Not Reportable Estimated GFR 53 L Glucose 117 H Hemoglobin A1c 5.6 Calcium 8.8 Magnesium Total Bilirubin 0.2 AST 31 ALT 20 Alkaline Phosphatase 119 Troponin I < 0.012 0.022 NT-Pro-B Natriuret Pep 195 H Total Protein 8.4 H Albumin 4.2 Urine Color Yellow Urine Appearance Clear Urine pH 5.5 Ur Specific [place] 1.014 Urine Protein Negative Urine Glucose (UA) Negative Urine Ketones Negative Ur Blood (Man) Negative Urine Nitrate Negative Urine Bilirubin Negative Urine Urobilinogen 0.2 Add Ur Microanalysis Reviewed Leukocyte Esterase Rfl 1+ H Urine RBC 0-2 Urine WBC 0-5 Ur Squamous Epith Cells None seen Urine Bacteria None seen Urine Casts 0-2 Blood Type O Positive Antibody Screen Negative 04/11/25 04/11/25 03:04 06:06 WBC 4.5 RBC 4.11 L Hgb 11.8 L Hct 36.6 L MCV 89.1 MCH 28.7 MCHC 32.2 RDW 13.2 Plt Count 211 MPV 10.6 H Immature Gran % (Auto) Neut % (Auto) Lymph % (Auto) Sullivan % (Auto) Eos % (Auto) Baso % (Auto) Lymph # (Auto) Sullivan # (Auto) Eos # (Auto) Baso # (Auto) Abs Immat Gran (auto) Absolute Neuts (auto) Absolute Nucleated RBC Nucleated RBC % Sodium 132 L Potassium 3.8 Chloride 97 L Carbon Dioxide 31 H Anion Gap 4 BUN 26 H Creatinine 0.98 Estim Creat Clear Calc 37 Estimated GFR 54 L Glucose 102 Hemoglobin A1c Calcium 8.7 Magnesium 2.2 Total Bilirubin AST ALT Alkaline Phosphatase Troponin I 0.023 0.020 NT-Pro-B Natriuret Pep Total Protein Albumin Urine Color Urine Appearance Urine pH Ur Specific [place] Urine Protein Urine Glucose (UA) Urine Ketones Ur Blood (Man) Urine Nitrate Urine Bilirubin Urine Urobilinogen Add Ur Microanalysis Leukocyte Esterase Rfl Urine RBC Urine WBC Ur Squamous Epith Cells Urine Bacteria Urine Casts Blood Type Antibody Screen Quality VTE Prophylaxis VTE prophylaxis: mechanical ordered
[2025-04-11] MEDS: SIMVASTATIN 20 MG TABLET PO (08:23)
[2025-04-11] MEDS: CITALOPRAM HYDROBROMIDE 20 MG TABLET PO (08:23)
[2025-04-11] MEDS: ISOSORBIDE MONONITRATE 30 MG TAB.ER.24H PO (08:23)
[2025-04-11] MEDS: HYDROcodone/acetaminophen (*CRX) 7.5-325 MG TABLET 1 TAB PO (08:29)
[2025-04-12] VITALS (11 sets, daily range): BP systolic 121–133; BP diastolic 66–74; PULSE 60–72; RESP 16–18; TEMP 36.2–36.9; O2SAT 95–99
[2025-04-12 06:06] LABS: Hematocrit 35.1 % (37.0-47.0); Hemoglobin 11.2 g/dL (12.0-15.0); Immature Granulocyte Percent A 0.0 % (0-0.5); Lymphocytes Absolute Auto 2.37 K/mm3 (0.9-3.2); Mean Corpuscular HGB Conc 31.9 g/dl (32-36); Mean Corpuscular Hemoglobin 28.4 pg (26-34); Mean Corpuscular Volume 88.9 fl (80-100); Nucleated Red Blood Cells Absolute Auto 0.000 K/mm3 (0.0-0.012); Nucleated Red Blood Cells Perc 0.0 % (0.0-0.2); Platelet Count Result 159 k/mm3 (150-375); Red Blood Count 3.95 M/mm3 (4.2-5.4); White Blood Count 4.7 K/mm3 (4.5-10.0)
[2025-04-12 06:29] LABS: Alanine Aminotransferase 15 U/L (6-35); Anion Gap 4 mmol/L (4-12); Bilirubin,Total 0.5 mg/dL (0.2-1.3); Blood Urea Nitrogen 25 mg/dL (7-17); Calcium 8.2 mg/dL (8.4-10.2); Carbon Dioxide 26 mmol/L (22-30); Chloride 97 mmol/L (98-107); Estimated CRCL calculation 42 ml/min; Estimated Glomerular Filt Rate > 60; Glucose 109 mg/dL (65-110); Sodium 127 mmol/L (137-145)
[2025-04-12 06:36] LABS: Albumin Level 3.3 g/dL (3.5-5.1); Alkaline Phosphatase 103 U/L (38-126); Aspartate Amino Transferase 22 U/L (14-36); Potassium 4.1 mmol/L (3.4-5.0); Total Protein 6.5 g/dL (6.3-8.2)
[2025-04-12] MEDS: PRIMIDONE 50 MG TABLET 150 MG PO ×2 (09:27→22:11)
[2025-04-12] MEDS: ISOSORBIDE MONONITRATE 30 MG TAB.ER.24H PO (09:27)
[2025-04-12] MEDS: METOPROLOL TARTRATE 50 MG TAB PO ×2 (09:27→22:10)
[2025-04-12] MEDS: SIMVASTATIN 20 MG TABLET PO (09:28)
[2025-04-12] MEDS: CITALOPRAM HYDROBROMIDE 20 MG TABLET PO (09:28)
--- NOTE | 2025-04-12 13:14 | PM.IMPN ---
Progress Note: A&P Assessment and Plan (1) General weakness: Code(s): R53.1 - Weakness Status: Acute Assessment and Plan: -labs with hyponatremia -the patient has a history of Parkinson's. She stated that she feels that her legs are giving out and that she has a shuffling walk. -no infectious process seen at this time. 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 -CT of the brain was negative. She has no focal weakness. -an MRI and carotid Dopplers have been ordered. -neurology consult has been placed due to the Parkinson's. -EKG was read asELECTRONIC ATRIAL PACEMAKER ST-T WAVE ABNORMALITY IN ANTEROLAT/INF LEADS- CONSIDER ISCHEMIA BASELINE ARTIFACT- I, II, III, AVR, AVL, AVF, V1 ABNORMAL ECG Compared to ECG 02/08/2024 15:57:31 VENTRICULAR PACE PACEMAKER NO LONGER PRESENT Possible ischemia now present -check cardiac enzymes. 04/11: Continue with workup, pt agreeable with therapy for eval and treat. Reports BLE weakness x3 days, no abnormality seen upon examination today. -Brain MRI unable to be performed, pt with pacemaker -Carotid US: IMPRESSION: 1. No hemodynamically significant ICA stenosis (i.e., if any stenosis, less than 50%). 2. Normal bilateral antegrade vertebral artery flow. -Pending ECHO -Neuro to round on pt tomorrow (no coverage today) (2) CHF (congestive heart failure): Qualifiers: Heart failure chronicity: unspecified Heart failure type: unspecified Qualified Code(s): I50.9 - Heart failure, unspecified Code(s): I50.9 - Heart failure, unspecified Status: Acute Assessment and Plan: -chest x-ray impression was CHF. The patient denies that she has ever been diagnosed with CHF. -an echo has been ordered. -she denies any shortness of breath. And she has no edema to lower extremities. -may consider consult for Cardiology 04/11: Pt denies SOB or CP. -ECHO pending 04/12: Na 127, restricted free water to 1200 ml, I/O remains positive, added one dose of furosemide 20 mg IV (3) HTN (hypertension): Code(s): I10 - Essential (primary) hypertension Status: Acute Assessment and Plan: -blood pressure 147/59. -continue with nifedipine -continue with metoprolol -continue with clonidine 04/11: Stable BPs, continue medications. 04/12: Remains slightly elevated (4) Hyperlipidemia: Code(s): E78.5 - Hyperlipidemia, unspecified Status: Acute Assessment and Plan: -continue home statin, monitor liver enzymes. (5) Diabetes: Code(s): E11.9 - Type 2 diabetes mellitus without complications Status: Acute Assessment and Plan: -her A1c is 5.6. -her metformin is on hold at this time. -sliding scale insulin with Accu-Cheks AC and HS. 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 -PT OT has been it consulted -neurology has been consulted. 04/11, 04/12: Neuro consult pending Subjective Date/time seen: 04/12/25 13:14 Interval history: Tolerating physical therapy. Getting stronger. Drinks quite a bit of water. Appetite is not very good. Prefers to eat sweets at home. Likes her ice cream. Denied chest pain or shortness of breath at rest. No swelling. No GI complaints. Review of Systems Review of Systems: All systems reviewed & are unremarkable except as noted in HPI and below Exam Narrative: HEENT: PERRL, sclerae nonicteric, pharyngeal mucosa pink and intact NECK: No JVD, adenopathy, or thyromegaly CHEST: Clear to auscultation. Normal effort HEART: NL S1/S2, regular, no murmur ABDOMEN: BS+, soft, nontender, no mass, no bruits EXTREMITIES: No cyanosis, edema, or clubbing NEUROLOGIC: CN with mild left facial droop MUSCULOSKELETAL: Tone and strength symmetric PSYCH: Alert. Oriented to person, place, and time Objective Data Vital Signs Vital Signs: Vital Signs - 24 hr 04/11/25 14:00 04/11/25 16:05 04/11/25 20:00 Temperature 98.1 F Pulse Rate 63 73 Respiratory Rate 18 Blood Pressure 128/80 Pulse Oximetry 100 Oxygen Delivery Room Air 04/11/25 20:00 04/11/25 21:52 04/11/25 22:04 Temperature 98.3 F Pulse Rate 67 65 64 Respiratory Rate 16 Blood Pressure 122/65 Pulse Oximetry 99 Oxygen Delivery 04/12/25 00:00 04/12/25 04:00 04/12/25 05:18 Temperature 98.4 F Pulse Rate 65 63 67 Respiratory Rate 16 Blood Pressure 133/73 Pulse Oximetry 95 Oxygen Delivery 04/12/25 09:27 04/12/25 09:49 04/12/25 12:26 Temperature Pulse Rate 60 Respiratory Rate Blood Pressure Pulse Oximetry Oxygen Delivery Room Air Room Air Intake/Output Intake/Output: Intake & Output 04/09/25 04/10/25 04/11/25 04/12/25 23:59 23:59 23:59 23:59 Intake Total 2680 440 Output Total 400 1000 Balance -400 1680 440 Meds/Results Medications: Active Medications Generic Name Dose Route Start Last Admin Trade Name Freq PRN Reason Stop Dose Admin Hydrocodone Bitart/Acetaminophen 1 tab 04/11/25 00:16 04/11/25 08:29 Hydrocodone/Acetaminophen (*Crx) 7.5-325 Mg Tablet PO 1 tab Q6H PRN Administration pain 3-6 Citalopram Hydrobromide 20 mg 04/11/25 09:00 04/12/25 09:28 Citalopram Hydrobromide 20 Mg Tablet PO 20 mg DAILY [facility] Administration Clonidine HCl 0.2 mg 04/10/25 23:45 04/12/25 12:45 Clonidine Hcl 0.2 Mg Tablet PO 0.2 mg TID [facility]ISCO Administration Dextrose 12.5 gm 04/10/25 23:44 Dextrose 50% 25 Gm/50 Ml Syringe IV PUSH PRN PRN Hypoglycemia Protocol Glucagon 1 mg 04/10/25 23:44 Glucagon For Inj 1 Mg Vial IM PRN PRN Hypoglycemia Protocol Glucose 15 gm 04/10/25 23:44 Glucose Oral Gel 15 Gm Of Glucse In 37.5 Gm Tube PO PRN PRN Hypoglycemia Protocol Dextrose 1,000 mls @ 100 mls/hr 04/10/25 23:44 Dextrose 5% 1,000 Ml IVPB PRN PRN Hypoglycemia Protocol Insulin Aspart 2 - 5 units 04/11/25 08:00 04/12/25 12:36 Insulin Aspart (*Bkc) 100 Units/Ml SUB-Q Not Given TIDWM FRANSISCO Protocol Isosorbide Mononitrate 30 mg 04/11/25 09:00 04/12/25 09:27 Isosorbide Mononitrate 30 Mg Tab.Er.24h PO 30 mg DAILY [facility] Administration Metoprolol Tartrate 50 mg 04/10/25 23:45 04/12/25 09:27 Metoprolol Tartrate 50 Mg Tab PO 50 mg Q12HR [facility] Administration Nifedipine 60 mg 04/11/25 09:00 04/12/25 09:27 Nifedipine 30 Mg Tab.Er.24 PO 60 mg DAILY [facility] Administration Perflutren Lipid Microsphere 0 ml 04/11/25 00:07 Perflutren Lipid Microspheres 1.5 Ml Vial Diluted To 10 Ml Total Volume IV PUSH 04/14/25 00:07 ONCE PRN adequate visualization Protocol Primidone 150 mg 04/11/25 00:25 04/12/25 09:27 Primidone 50 Mg Tablet PO 150 mg Q12HR [facility] Administration Simvastatin 20 mg 04/11/25 09:00 04/12/25 09:28 Simvastatin 20 Mg Tablet PO 20 mg DAILY [facility] Administration Trazodone HCl 100 mg 04/11/25 00:20 04/11/25 22:05 Trazodone Hcl 50 Mg Tablet PO 100 mg HS [facility]ISCO Administration Radiology Results: ITS Impressions Chest X-Ray 04/10/25 16:15 Impression: CHF Head CT 04/10/25 16:33 Impression: 1.No acute intracranial abnormality. Carotid Doppler Study 04/11/25 11:46 IMPRESSION: 1. No hemodynamically significant ICA stenosis (i.e., if any stenosis, less than 50%). 2. Normal bilateral antegrade vertebral artery flow. Stenosis measured by Society of Radiologists in Ultrasound (SRU) criteria. Labs Labs: Laboratory Results - last 24 hr 04/11/25 04/11/25 04/12/25 16:41 22:03 05:32 WBC 4.7 RBC 3.95 L Hgb 11.2 L Hct 35.1 L MCV 88.9 MCH 28.4 MCHC 31.9 L RDW 13.2 Plt Count 159 MPV 11.1 H Immature Gran % (Auto) 0.0 Neut % (Auto) 34.5 L Lymph % (Auto) 50.1 H [place] % (Auto) 9.9 H Eos % (Auto) 4.4 Baso % (Auto) 1.1 Lymph # (Auto) 2.37 [place] # (Auto) 0.5 Eos # (Auto) 0.2 Baso # (Auto) 0.1 Abs Immat Gran (auto) 0.00 Absolute Neuts (auto) 1.6 Absolute Nucleated RBC 0.000 Nucleated RBC % 0.0 Sodium 127 L Potassium 4.1 Chloride 97 L Carbon Dioxide 26 Anion Gap 4 BUN 25 H Creatinine 0.86 Estim Creat Clear Calc 42 Estimated GFR > 60 Glucose 109 POC Capillary Glucose 155 H 134 H Calcium 8.2 L Total Bilirubin 0.5 AST 22 ALT 15 Alkaline Phosphatase 103 Total Protein 6.5 Albumin 3.3 L 04/12/25 04/12/25 08:01 12:07 WBC RBC Hgb Hct MCV MCH MCHC RDW Plt Count MPV Immature Gran % (Auto) Neut % (Auto) Lymph % (Auto) [place] % (Auto) Eos % (Auto) Baso % (Auto) Lymph # (Auto) [place] # (Auto) Eos # (Auto) Baso # (Auto) Abs Immat Gran (auto) Absolute Neuts (auto) Absolute Nucleated RBC Nucleated RBC % Sodium Potassium Chloride Carbon Dioxide Anion Gap BUN Creatinine Estim Creat Clear Calc Estimated GFR Glucose POC Capillary Glucose 122 H 160 H Calcium Total Bilirubin AST ALT Alkaline Phosphatase Total Protein Albumin
[2025-04-12] MEDS: HYDROcodone/acetaminophen (*CRX) 7.5-325 MG TABLET 1 TAB PO (15:17)
[2025-04-12] MEDS: FUROSEMIDE INJ 40 MG/4 ML VIAL 20 MG IV PUSH (15:19)
[2025-04-13] VITALS (12 sets, daily range): BP systolic 135–171; BP diastolic 70–80; PULSE 60–97; RESP 18; TEMP 36.1–37.1; O2SAT 96–100
[2025-04-13 05:52] LABS: Hematocrit 35.0 % (37.0-47.0); Hemoglobin 11.3 g/dL (12.0-15.0); Immature Granulocyte Percent A 0.0 % (0-0.5); Lymphocytes Absolute Auto 2.23 K/mm3 (0.9-3.2); Mean Corpuscular HGB Conc 32.3 g/dl (32-36); Mean Corpuscular Hemoglobin 28.4 pg (26-34); Mean Corpuscular Volume 87.9 fl (80-100); Nucleated Red Blood Cells Absolute Auto 0.000 K/mm3 (0.0-0.012); Nucleated Red Blood Cells Perc 0.0 % (0.0-0.2); Platelet Count Result 210 k/mm3 (150-375); Red Blood Count 3.98 M/mm3 (4.2-5.4); White Blood Count 4.3 K/mm3 (4.5-10.0)
[2025-04-13 06:16] LABS: Alanine Aminotransferase 18 U/L (6-35); Albumin Level 3.4 g/dL (3.5-5.1); Alkaline Phosphatase 98 U/L (38-126); Anion Gap 4 mmol/L (4-12); Aspartate Amino Transferase 28 U/L (14-36); Bilirubin,Total 0.2 mg/dL (0.2-1.3); Blood Urea Nitrogen 19 mg/dL (7-17); Calcium 8.4 mg/dL (8.4-10.2); Carbon Dioxide 32 mmol/L (22-30); Chloride 95 mmol/L (98-107); Estimated CRCL calculation 41 ml/min; Estimated Glomerular Filt Rate 60; Glucose 110 mg/dL (65-110); Potassium 3.7 mmol/L (3.4-5.0); Sodium 131 mmol/L (137-145); Total Protein 6.8 g/dL (6.3-8.2)
[2025-04-13] MEDS: METOPROLOL TARTRATE 50 MG TAB PO ×2 (08:40→21:28)
[2025-04-13] MEDS: CITALOPRAM HYDROBROMIDE 20 MG TABLET PO (08:40)
[2025-04-13] MEDS: ISOSORBIDE MONONITRATE 30 MG TAB.ER.24H PO (08:40)
[2025-04-13] MEDS: PRIMIDONE 50 MG TABLET 150 MG PO ×2 (08:40→21:27)
[2025-04-13] MEDS: SIMVASTATIN 20 MG TABLET PO (08:40)
--- NOTE | 2025-04-13 09:29 | WPDNEURCNPN ---
Assessment and Plan Assessment and plan (1) Parkinson disease with dyskinesia: Code(s): G20.B1 - Parkinson's disease with dyskinesia, without mention of fluctuations Status: Acute (2) Jurado's palsy: Code(s): G51.0 - Jurado's palsy Status: Acute (3) General weakness: Code(s): R53.1 - Weakness Status: Acute (4) CHF (congestive heart failure): Qualifiers: Heart failure chronicity: unspecified Heart failure type: unspecified Qualified Code(s): I50.9 - Heart failure, unspecified Code(s): I50.9 - Heart failure, unspecified Status: Acute (5) HTN (hypertension): Code(s): I10 - Essential (primary) hypertension Status: Acute (6) Diabetes: Code(s): E11.9 - Type 2 diabetes mellitus without complications Status: Acute Plan 1. Ongoing Parkinson's disease 2. Diabetes mellitus with neuropathy 3. Status post right-sided Jurado's palsy 4. Ongoing history of depression for which she is being treated. 5. History of taking primidone 150mg q.12 hours could have been added by other physicians for the tremor but that medicine will not be altered at this particular time. 6. Normal Doppler study of the carotid with negative CT scan of the head for any acute bleed, an x-ray chest suggestive of the congestive heart failure. Plan is to explained to the patient and the family thought related about the multiple problems and she will benefit from the ongoing physical therapy I do not see any anti Parkinson's medication her medication list I will agree clarify, it looks like she is being treated for the essential tremor with primidone. She will benefit from the nerve conduction study as an outpatient to document the diabetic neuropathy. Consult date: 04/13/25 HPI: Krysta Duarte is a 84 year old female admitted to the hospital through the emergency room with the complaints of generalized weakness of couple of days duration in addition to the concern about low hemoglobin as per the blood workup as an outpatient. At the time of admission to the hospital ER patient was taking 1.citalopram 20mg daily 2. Isosorbide 30mg daily 3. Metformin 500mg daily 4. Primidone 150mg q.12 hours 5. Simvastatin 20mg daily 6. Aspirin 81mg daily 7. Clonidine 0.2mg 3 times a day 8. Metoprolol 50mg q.12 hours 9. Nifedipine 60mg daily and 10. Trazodone 100mg at night. She is reportedly allergic to morphine, penicillin, and erythromycin. She does have ongoing history of 1. Parkinson's disease 2. Jurado's palsy 3. Hypertension 4. Diabetes mellitus with hyperlipidemia and 5. History of pacemaker in. She has undergone lumpectomy, pacemaker implant min, cholecystectomy and appendicectomy. She has history of smoking pack years 0.5, years smoked 10, and on initial evaluation in the ER her vital signs were normal and stable. CBC was normal, BMP with sodium 132, and BUN 31, UA was normal, chest x-ray was findings suggestive of congestive heart failure, EKG was questionably abnormal with electrical atrial pacemaker. Review of Systems Review of Systems: All systems reviewed & are unremarkable except as noted in HPI and below PMFSH Past Medical History Medical History 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 Vertigo Obesity Arthritis HTN (hypertension) Diabetes Hyperlipidemia Surgical History Surgical History (Updated 04/11/25 @ 00:[address] APRN) H/O lumpectomy H/O cardiac catheterization H/O colonoscopy with polypectomy H/O cataract extraction History of permanent cardiac pacemaker placement History of tubal ligation History of cholecystectomy History of appendectomy Family History Family History Father Acute myocardial infarction Heart disease Mother Diabetes mellitus Sibling , ovarian cancer COVID-19 Cerebrovascular accident Acute myocardial infarction Diabetes mellitus Hypertension Other Cancer Social History Social History (Updated 04/11/25 @ 00:[address] APRN) Social History: She lives at home with her . She has 7 children. Code status full code Smoking packs per day: 0.5 Smoking cigarettes per day: 10.0 Years smoked: 10 Smoking pack-years: 5.00 Smoking status: Never smoker Second hand tobacco smoke exposure: No Smoking end date: 06/26/1963 Alcohol intake: never Substance use: never Substance use type: does not use Do You Feel Safe in your Home?: Yes Lack of Transportation: No Lack of Food: Never True Current Housing: I Have Housing Concerned About Future Housing: No Difficulty Paying Gas/Electric Bills: No Difficulty Paying for Meds: No Currently Unemployed: No Education: High School Diploma/GED Difficulty w/ Childcare or Family Care: No Living arrangements: with family Additional living arrangements comments: Occupation/Education: 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 Gender identity (if verbalized by the patient): Female Spiritual care concerns: No Meds Home Medications and Allergies Home Medications ?Medication ?Instructions ?Recorded ?Confirmed ?Type citalopram 20 mg tablet 20 mg PO DAILY 08/29/22 04/10/25 History isosorbide mononitrate 30 mg 30 mg PO DAILY 08/29/22 04/10/25 History tablet,extended release 24 hr metformin 500 mg tablet 500 mg PO DAILY 08/29/22 04/10/25 History primidone 50 mg tablet 150 mg PO Q12H 08/29/22 04/10/25 History simvastatin 40 mg tablet 20 mg PO DAILY 08/29/22 04/10/25 History aspirin 81 mg tablet 81 mg PO DAILY 04/01/24 04/10/25 History ciprofloxacin 0.3 %-dexamethasone 4 drp RIGHT EAR Q12H 04/10/25 04/10/25 History 0.1 % ear drops,suspension clonidine HCl 0.2 mg tablet 0.2 mg PO TID 04/10/25 04/10/25 History hydrocodone 7.5 mg-acetaminophen 1 tablet PO Q6H 04/10/25 04/10/25 History 325 mg tablet metoprolol tartrate 50 mg tablet 50 mg PO Q12H 04/10/25 04/10/25 History nifedipine 60 mg tablet,extended 60 mg PO DAILY 04/10/25 04/10/25 History release 24 hr trazodone 100 mg tablet 100 mg PO HS 04/11/25 04/11/25 History Allergies Allergy/AdvReac Type Severity Reaction Status Date / Time erythromycin base Allergy Severe LUMP IN Verified 04/10/25 20:34 THROAT, HIVES morphine Allergy Severe HIVES Verified 04/10/25 20:34 Penicillins Allergy Severe HIVES Verified 04/10/25 20:34 orange Allergy Unknown lips swell Verified 04/10/25 20:34 Vital Signs Vital Signs - 24 hr 04/12/25 09:30 04/12/25 09:30 04/12/25 09:49 Temperature Pulse Rate 67 Respiratory Rate Blood Pressure Pulse Oximetry 98 Oxygen Delivery Room Air Room Air 04/12/25 12:00 04/12/25 12:26 04/12/25 14:59 Temperature 36.2 C L Pulse Rate 60 67 Respiratory Rate 16 Blood Pressure 127/74 Pulse Oximetry 98 Oxygen Delivery Room Air 04/12/25 16:00 04/12/25 20:00 04/12/25 20:00 Temperature Pulse Rate 66 66 Respiratory Rate Blood Pressure Pulse Oximetry Oxygen Delivery Room Air 04/12/25 22:00 04/12/25 22:10 04/13/25 00:00 Temperature 36.2 C L Pulse Rate 66 72 97 Respiratory Rate 18 Blood Pressure 121/66 Pulse Oximetry 99 Oxygen Delivery 04/13/25 04:06 04/13/25 06:00 04/13/25 08:40 Temperature 36.3 C L Pulse Rate 61 62 79 Respiratory Rate 18 Blood Pressure 171/80 H Pulse Oximetry 98 Oxygen Delivery Exam Narrative: Examination this morning revealed her to be awake alert cooperative in no obvious acute distress, head normocephalic with no cranial bruits, neck is supple with no cervical bruit no thyromegaly no lymphadenopathy, heart regular, lungs clear to auscultation with no rhonchi or crepitations, abdomen is soft nontender, neurologically she was awake alert able to sit in the chair without any truncal instability, she was able to carry out the conversation and recognized the physician her speech was not dysphasic not dysarthric not dysphonic but she had obvious asymmetry of the face with flattening of the right nasolabial fold, pupils were round regular feels the vision were full, extraocular movements are full with no nystagmus, facial sensation intact, face was asymmetrical with flattening of the right nasolabial fold inability to wrinkle the forehead on the right side, tongue was in the oral cavity without fasciculation and protrusion was in the midline, motor examination revealed her to have generalized decreased strength with mild increase in the tone on passive movements of the upper extremities, she was able to get off the chair without assistance and she was able to stand but she had tendency to sway and on passive movements of the upper and lower extremity she had mild cogwheeling, deep tendon reflexes versus sluggish, she had decreased strength on standing on heels and toes and there was decreased sensation distally in both upper and lower extremities. Results Labs 04/13/25 05:15 04/13/25 05:15 Labs: Short CBC 04/13/25 Range/Units 05:15 WBC 4.3 L (4.5-10.0) K/mm3 Hgb 11.3 L (12.0-15.0) g/dL Hct 35.0 L (37.0-47.0) % Plt Count 210 (150-375) k/mm3 BMP 04/13/25 05:15 Sodium 131 L Potassium 3.7 Chloride 95 L Carbon Dioxide 32 H BUN 19 H Creatinine 0.89 Glucose 110 Calcium 8.4 Liver Function 04/13/25 Range/Units 05:15 Total Bilirubin 0.2 (0.2-1.3) mg/dL AST 28 (14-36) U/L ALT 18 (6-35) U/L Alkaline Phosphatase 98 (38-126) U/L Albumin 3.4 L (3.5-5.1) g/dL
--- NOTE | 2025-04-13 10:07 | PM.IMPN ---
Progress Note: A&P Assessment and Plan (1) General weakness: Code(s): R53.1 - Weakness Status: Acute Assessment and Plan: -labs with hyponatremia -the patient has a history of Parkinson's. She stated that she feels that her legs are giving out and that she has a shuffling walk. -no infectious process seen at this time. 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 -CT of the brain was negative. She has no focal weakness. -an MRI and carotid Dopplers have been ordered. -neurology consult has been placed due to the Parkinson's. -EKG was read asELECTRONIC ATRIAL PACEMAKER ST-T WAVE ABNORMALITY IN ANTEROLAT/INF LEADS- CONSIDER ISCHEMIA BASELINE ARTIFACT- I, II, III, AVR, AVL, AVF, V1 ABNORMAL ECG Compared to ECG 02/08/2024 15:57:31 VENTRICULAR PACE PACEMAKER NO LONGER PRESENT Possible ischemia now present -check cardiac enzymes. 04/11: Continue with workup, pt agreeable with therapy for eval and treat. Reports BLE weakness x3 days, no abnormality seen upon examination today. -Brain MRI unable to be performed, pt with pacemaker -Carotid US: IMPRESSION: 1. No hemodynamically significant ICA stenosis (i.e., if any stenosis, less than 50%). 2. Normal bilateral antegrade vertebral artery flow. -Pending ECHO -Neuro to round on pt tomorrow (no coverage today) 04/13: -Echo, NAD: Summary 1. Complete two-dimensional, color flow and Doppler transthoracic echocardiogram is performed. 2. Normal LV size, moderate LVH, normal LV systolic function, ejection fraction calculated at 66%; grade 1 diastolic dysfunction. Normal RV size and systolic function. Mild left atrial enlargement. Linear artifact/pacemaker lead noted in RA/RV. Mild MAC, no significant MR. Mildly sclerotic aortic valve, no hemodynamically significant stenosis. Trace TR, RVSP 33 mmHg. Normal aortic root size. No significant pericardial effusion. -Neuro recs this AM: Plan is to explained to the patient and the family thought related about the multiple problems and she will benefit from the ongoing physical therapy I do not see any anti Parkinson's medication her medication list I will agree clarify, it looks like she is being treated for the essential tremor with primidone. She will benefit from the nerve conduction study as an outpatient to document the diabetic neuropathy.' -Pt verifies with me today that her only parkinson's disease med is primidone for her tremors, nothing else. -Awaiting PT/OT treatment on 04/14 to discharge (2) CHF (congestive heart failure): Qualifiers: Heart failure chronicity: unspecified Heart failure type: unspecified Qualified Code(s): I50.9 - Heart failure, unspecified Code(s): I50.9 - Heart failure, unspecified Status: Acute Assessment and Plan: -chest x-ray impression was CHF. The patient denies that she has ever been diagnosed with CHF. -an echo has been ordered. -she denies any shortness of breath. And she has no edema to lower extremities. -may consider consult for Cardiology 04/11: Pt denies SOB or CP. -ECHO pending 04/12: Na 127, restricted free water to 1200 ml, I/O remains positive, added one dose of furosemide 20 mg IV 04/13: Na 131 today, will continue observation, not wanting to replete too quickly -Pending TSH (3) HTN (hypertension): Code(s): I10 - Essential (primary) hypertension Status: Acute Assessment and Plan: -blood pressure 147/59. -continue with nifedipine -continue with metoprolol -continue with clonidine 04/11: Stable BPs, continue medications. 04/12: Remains slightly elevated 04/13: 139/70, will continue to monitor (4) Hyperlipidemia: Code(s): E78.5 - Hyperlipidemia, unspecified Status: Acute Assessment and Plan: -continue home statin, monitor liver enzymes. (5) Diabetes: Code(s): E11.9 - Type 2 diabetes mellitus without complications Status: Acute Assessment and Plan: -her A1c is 5.6. -her metformin is on hold at this time. -sliding scale insulin with Accu-Cheks AC and HS. 04/11: -AM BS 102 04/12: FBS 122 04/13: FBS 110 (6) Jurado's palsy: Code(s): G51.0 - Jurado's palsy Status: Acute Assessment and Plan: -residual slight left facial droop (7) Parkinson disease with dyskinesia: Code(s): G20.B1 - Parkinson's disease with dyskinesia, without mention of fluctuations Status: Acute Assessment and Plan: -continue with her primidone. -PT OT has been it consulted -neurology has been consulted. 04/11, 04/12: Neuro consult pending 04/13: Neuro recs: Plan is to explained to the patient and the family thought related about the multiple problems and she will benefit from the ongoing physical therapy I do not see any anti Parkinson's medication her medication list I will agree clarify, it looks like she is being treated for the essential tremor with primidone. She will benefit from the nerve conduction study as an outpatient to document the diabetic neuropathy. Plan Pending TSH and repeat Na. PT/OT to work with on 07/15 then discharge with HH/home therapy Time Spent With Patient Time: 30 Subjective Date/time seen: 04/13/25 1019 Interval history: Tolerating physical therapy. Getting stronger. Drinks quite a bit of water. Appetite is not very good. Prefers to eat sweets at home. Likes her ice cream. Denied chest pain or shortness of breath at rest. No swelling. No GI complaints. Pt sitting up in chair comfortably upon my entrance. Pt with x4 family members at the bedside. Pt reports that her legs have felt better since I saw her x2 days ago and she is agreeable to continuing to work with therapy but does not want to go to a facility at discharge, she would rather have therapy come to her house. Denies CP or SOB. Pt reports that her appetite is also better today. Review of Systems Review of Systems: All systems reviewed & are unremarkable except as noted in HPI and below Constitutional: Constitutional: Reports as per HPI and Reports no additional constitutional complaints Eyes: Eyes: Reports as per HPI and Reports no additional eye complaints ENT: Reports system reviewed and no additional complaints, except as documented and Reports Normal hearing present Cardiovascular: Cardiovascular: Reports no additional cardiovascular complaints Respiratory: Respiratory: Reports as per HPI and Reports no additional respiratory complaints Gastrointestinal: Gastrointestinal: Reports as per HPI and Reports no additional gastrointestinal complaints Genitourinary: Genitourinary: Reports no additional female genitourinary complaints Musculoskeletal: Musculoskeletal: Reports no additional musculoskeletal complaints Integumentary/Breasts: Skin/Breast: Reports system reviewed and no additional complaints, except as docu Neurologic: Reports system reviewed and no additional complaints, except as documented and Reports Normal hearing present Psychiatric: Psychiatric: Reports no additional psychiatric complaints and Reports as per HPI Hematologic/Lymphatic: Hematologic/Lymphatic: Reports no additional hematologic/lymphatic complaints Allergic/Immunologic: Allergic/Immunologic: Reports no additional allergic/immunologic complaints Exam Const: General: cooperative, healthy appearing, comfortable, no acute distress, well developed, awake, Physically active, average body habitus and well nourished Nutritional Appearance: average body habitus and well nourished Orientation/consciousness: oriented to person, oriented to place, oriented to time and patient oriented x3 Limitations: no limitations HENMT: Head: normal to inspection, No palpable skull fracture present, normocephalic and atraumatic Other: Slight facial droop to the left from Jurado's palsy Eyes: General: appearance normal, both eyes and all related structures Alignment and Position: alignment normal Periorbital: periorbital findings normal Eyelids: eyelids normal Pupils: Equal, round and reactive pupils present Neck: Neck: normal visual inspection and full ROM Chest: Chest palpation & inspection: normal inspection of the chest Resp: Effort & Inspection: normal respiratory effort Cardio: Palpation: normal PMI Rate: regular rate Rhythm: regular rhythm GI: Inspection: normal to inspection Auscultation: normal bowel sounds : General: Yes no CVA tenderness Back/Spine/Pelvis: Back: no CVA tenderness Skin: General skin exam: normal color Lesions: no lesions Rashes: no rashes Trauma: no lacerations or abrasions Wounds: no wounds Hair: normal Nails: normal Neuro: General: oriented to person, oriented to place, oriented to time and patient oriented x3 Cranial nerves: Yes Equal, round and reactive pupils present and Yes Normal hearing present Cognition (Neuro): normal cognition Speech: normal speech Motor exam (neuro): 5/5 motor strength present throughout Sensory Exam: normal sensation Extrem: General: normal to inspection Right upper extremity: normal to inspection and shoulder/upper arm Left upper extremity: normal to inspection and shoulder/upper arm Right lower extremity: normal to inspection Left lower extremity: normal to inspection Psych: Appearance: grossly normal Mental Status: mental status grossly normal Speech and movement: Normal speech and movement present Affect: normal affect Attitude: cooperative Thought process: Normal thought process present Insight: Good insight present (Psych) Judgement: Good judgement present (Psych) Objective Data Vital Signs Vital Signs: Vital Signs - 24 hr 04/12/25 12:00 04/12/25 12:26 04/12/25 14:59 Temperature 97.2 F L Pulse Rate 60 67 Respiratory Rate 16 Blood Pressure 127/74 Pulse Oximetry 98 Oxygen Delivery Room Air 04/12/25 16:00 04/12/25 20:00 04/12/25 20:00 Temperature Pulse Rate 66 66 Respiratory Rate Blood Pressure Pulse Oximetry Oxygen Delivery Room Air 04/12/25 22:00 04/12/25 22:10 04/13/25 00:00 Temperature 97.1 F L Pulse Rate 66 72 97 Respiratory Rate 18 Blood Pressure 121/66 Pulse Oximetry 99 Oxygen Delivery 04/13/25 04:06 04/13/25 06:00 04/13/25 08:40 Temperature 97.4 F L Pulse Rate 61 62 79 Respiratory Rate 18 Blood Pressure 171/80 H Pulse Oximetry 98 Oxygen Delivery Intake/Output Intake/Output: Intake & Output 04/10/25 04/11/25 04/12/25 04/13/25 23:59 23:59 23:59 23:59 Intake Total 2680 920 820 Output Total 400 1000 1350 2200 Balance -400 1680 -430 -1380 Meds/Results Medications: Active Medications Generic Name Dose Route Start Last Admin Trade Name Freq PRN Reason Stop Dose Admin Hydrocodone Bitart/Acetaminophen 1 tab 04/11/25 00:16 04/12/25 15:17 Hydrocodone/Acetaminophen (*Crx) 7.5-325 Mg Tablet PO 1 tab Q6H PRN Administration pain 3-6 Citalopram Hydrobromide 20 mg 04/11/25 09:00 04/13/25 08:40 Citalopram Hydrobromide 20 Mg Tablet PO 20 mg DAILY FRANSISCO Administration Clonidine HCl 0.2 mg 04/10/25 23:45 04/13/25 08:39 Clonidine Hcl 0.2 Mg Tablet PO 0.2 mg TID FRANSISCO Administration Dextrose 12.5 gm 04/10/25 23:44 Dextrose 50% 25 Gm/50 Ml Syringe IV PUSH PRN PRN Hypoglycemia Protocol Glucagon 1 mg 04/10/25 23:44 Glucagon For Inj 1 Mg Vial IM PRN PRN Hypoglycemia Protocol Glucose 15 gm 04/10/25 23:44 Glucose Oral Gel 15 Gm Of Glucse In 37.5 Gm Tube PO PRN PRN Hypoglycemia Protocol Dextrose 1,000 mls @ 100 mls/hr 04/10/25 23:44 Dextrose 5% 1,000 Ml IVPB PRN PRN Hypoglycemia Protocol Insulin Aspart 2 - 5 units 04/11/25 08:00 04/13/25 08:25 Insulin Aspart (*Bkc) 100 Units/Ml SUB-Q Not Given TIDWM FRANSISCO Protocol Isosorbide Mononitrate 30 mg 04/11/25 09:00 04/13/25 08:40 Isosorbide Mononitrate 30 Mg Tab.Er.24h PO 30 mg DAILY FRANSISCO Administration Metoprolol Tartrate 50 mg 04/10/25 23:45 04/13/25 08:40 Metoprolol Tartrate 50 Mg Tab PO 50 mg Q12HR FRANSISCO Administration Nifedipine 60 mg 04/11/25 09:00 04/13/25 08:39 Nifedipine 30 Mg Tab.Er.24 PO 60 mg DAILY FRANSISCO Administration Perflutren Lipid Microsphere 0 ml 04/11/25 00:07 Perflutren Lipid Microspheres 1.5 Ml Vial Diluted To 10 Ml Total Volume IV PUSH 04/14/25 00:07 ONCE PRN adequate visualization Protocol Primidone 150 mg 04/11/25 00:25 04/13/25 08:40 Primidone 50 Mg Tablet PO 150 mg Q12HR FRANSISCO Administration Simvastatin 20 mg 04/11/25 09:00 04/13/25 08:40 Simvastatin 20 Mg Tablet PO 20 mg DAILY FRANSISCO Administration Trazodone HCl 100 mg 04/11/25 00:20 04/12/25 22:10 Trazodone Hcl 50 Mg Tablet PO 100 mg HS FRANSISCO Administration Radiology Results: ITS Impressions Chest X-Ray 04/10/25 16:15 Impression: CHF Head CT 04/10/25 16:33 Impression: 1.No acute intracranial abnormality. Carotid Doppler Study 04/11/25 11:46 IMPRESSION: 1. No hemodynamically significant ICA stenosis (i.e., if any stenosis, less than 50%). 2. Normal bilateral antegrade vertebral artery flow. Stenosis measured by Society of Radiologists in Ultrasound (SRU) criteria. Labs Labs: Laboratory Results - last 24 hr 04/12/25 04/12/25 04/12/25 12:07 17:04 20:07 WBC RBC Hgb Hct MCV MCH MCHC RDW Plt Count MPV Immature Gran % (Auto) Neut % (Auto) Lymph % (Auto) [place] % (Auto) Eos % (Auto) Baso % (Auto) Lymph # (Auto) [place] # (Auto) Eos # (Auto) Baso # (Auto) Abs Immat Gran (auto) Absolute Neuts (auto) Absolute Nucleated RBC Nucleated RBC % Sodium Potassium Chloride Carbon Dioxide Anion Gap BUN Creatinine Estim Creat Clear Calc Estimated GFR Glucose POC Capillary Glucose 160 H 181 H 166 H Calcium Total Bilirubin AST ALT Alkaline Phosphatase Total Protein Albumin 04/13/25 04/13/25 05:15 08:14 WBC 4.3 L RBC 3.98 L Hgb 11.3 L Hct 35.0 L MCV 87.9 MCH 28.4 MCHC 32.3 RDW 13.0 Plt Count 210 MPV 10.2 Immature Gran % (Auto) 0.0 Neut % (Auto) 33.7 L Lymph % (Auto) 51.6 H [place] % (Auto) 8.6 H Eos % (Auto) 4.9 H Baso % (Auto) 1.2 Lymph # (Auto) 2.23 [place] # (Auto) 0.4 Eos # (Auto) 0.2 Baso # (Auto) 0.1 Abs Immat Gran (auto) 0.00 Absolute Neuts (auto) 1.5 Absolute Nucleated RBC 0.000 Nucleated RBC % 0.0 Sodium 131 L Potassium 3.7 Chloride 95 L Carbon Dioxide 32 H Anion Gap 4 BUN 19 H Creatinine 0.89 Estim Creat Clear Calc 41 Estimated GFR 60 Glucose 110 POC Capillary Glucose 137 H Calcium 8.4 Total Bilirubin 0.2 AST 28 ALT 18 Alkaline Phosphatase 98 Total Protein 6.8 Albumin 3.4 L Quality VTE Prophylaxis VTE prophylaxis: mechanical ordered
[2025-04-13 18:19] LABS: Thyroid Stimulating Hormone Reflex 1.650 uIU/mL (0.465-4.68)
[2025-04-13] MEDS: HYDROcodone/acetaminophen (*CRX) 7.5-325 MG TABLET 1 TAB PO (20:19)
[2025-04-14] VITALS: PULSE 62
[2025-04-14 04:00] VITALS: PULSE 60
[2025-04-14 04:22] VITALS: BP 146/57; PULSE 72; RESP 17; TEMP 36.7; O2SAT 100
[2025-04-14 05:32] LABS: Hematocrit 35.6 % (37.0-47.0); Hemoglobin 11.4 g/dL (12.0-15.0); Immature Granulocyte Percent A 0.0 % (0-0.5); Lymphocytes Absolute Auto 2.50 K/mm3 (0.9-3.2); Mean Corpuscular HGB Conc 32.0 g/dl (32-36); Mean Corpuscular Hemoglobin 28.5 pg (26-34); Mean Corpuscular Volume 89.0 fl (80-100); Nucleated Red Blood Cells Absolute Auto 0.000 K/mm3 (0.0-0.012); Nucleated Red Blood Cells Perc 0.0 % (0.0-0.2); Platelet Count Result 212 k/mm3 (150-375); Red Blood Count 4.00 M/mm3 (4.2-5.4); White Blood Count 4.5 K/mm3 (4.5-10.0)
[2025-04-14 05:44] LABS: Alanine Aminotransferase 36 U/L (6-35); Albumin Level 3.5 g/dL (3.5-5.1); Alkaline Phosphatase 103 U/L (38-126); Anion Gap 5 mmol/L (4-12); Aspartate Amino Transferase 43 U/L (14-36); Bilirubin,Total 0.2 mg/dL (0.2-1.3); Blood Urea Nitrogen 22 mg/dL (7-17); Calcium 8.2 mg/dL (8.4-10.2); Carbon Dioxide 30 mmol/L (22-30); Chloride 100 mmol/L (98-107); Estimated CRCL calculation 41 ml/min; Estimated Glomerular Filt Rate 60; Glucose 132 mg/dL (65-110); Potassium 3.5 mmol/L (3.4-5.0); Sodium 135 mmol/L (137-145); Total Protein 6.9 g/dL (6.3-8.2)
--- NOTE | 2025-04-14 08:53 | PM.DS ---
DS: Admitting Diagnosis Discharge Date 04/14/2025 Admitting Diagnosis Weakness DS: Discharge Diagnosis Discharge Diagnosis (1) General weakness: Code(s): R53.1 - Weakness Status: Acute Assessment and Plan: -labs with hyponatremia -the patient has a history of Parkinson's. She stated that she feels that her legs are giving out and that she has a shuffling walk. -no infectious process seen at this time. 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 -CT of the brain was negative. She has no focal weakness. -an MRI and carotid Dopplers have been ordered. -neurology consult has been placed due to the Parkinson's. -EKG was read asELECTRONIC ATRIAL PACEMAKER ST-T WAVE ABNORMALITY IN ANTEROLAT/INF LEADS- CONSIDER ISCHEMIA BASELINE ARTIFACT- I, II, III, AVR, AVL, AVF, V1 ABNORMAL ECG Compared to ECG 02/08/2024 15:57:31 VENTRICULAR PACE PACEMAKER NO LONGER PRESENT Possible ischemia now present -check cardiac enzymes. 04/11: Continue with workup, pt agreeable with therapy for eval and treat. Reports BLE weakness x3 days, no abnormality seen upon examination today. -Brain MRI unable to be performed, pt with pacemaker -Carotid US: IMPRESSION: 1. No hemodynamically significant ICA stenosis (i.e., if any stenosis, less than 50%). 2. Normal bilateral antegrade vertebral artery flow. -Pending ECHO -Neuro to round on pt tomorrow (no coverage today) 04/13: -Echo, NAD: Summary 1. Complete two-dimensional, color flow and Doppler transthoracic echocardiogram is performed. 2. Normal LV size, moderate LVH, normal LV systolic function, ejection fraction calculated at 66%; grade 1 diastolic dysfunction. Normal RV size and systolic function. Mild left atrial enlargement. Linear artifact/pacemaker lead noted in RA/RV. Mild MAC, no significant MR. Mildly sclerotic aortic valve, no hemodynamically significant stenosis. Trace TR, RVSP 33 mmHg. Normal aortic root size. No significant pericardial effusion. -Neuro recs this AM: Plan is to explained to the patient and the family thought related about the multiple problems and she will benefit from the ongoing physical therapy I do not see any anti Parkinson's medication her medication list I will agree clarify, it looks like she is being treated for the essential tremor with primidone. She will benefit from the nerve conduction study as an outpatient to document the diabetic neuropathy.' -Pt verifies with me today that her only parkinson's disease med is primidone for her tremors, nothing else. -Awaiting PT/OT treatment on 04/14 to discharge 04/14: D/c today with home health/therapy. Pt also given recs for nerve conduction study via PCP. (2) CHF (congestive heart failure): Qualifiers: Heart failure chronicity: unspecified Heart failure type: unspecified Qualified Code(s): I50.9 - Heart failure, unspecified Code(s): I50.9 - Heart failure, unspecified Status: Acute Assessment and Plan: -chest x-ray impression was CHF. The patient denies that she has ever been diagnosed with CHF. -an echo has been ordered. -she denies any shortness of breath. And she has no edema to lower extremities. -may consider consult for Cardiology 04/11: Pt denies SOB or CP. -ECHO pending 04/12: Na 127, restricted free water to 1200 ml, I/O remains positive, added one dose of furosemide 20 mg IV 04/13: Na 131 today, will continue observation, not wanting to replete too quickly -Pending TSH 04/14: Na at 135 today, which is her baseline -TSH WDL -F/u with PCP for labs/maintenance (3) HTN (hypertension): Code(s): I10 - Essential (primary) hypertension Status: Acute Assessment and Plan: -blood pressure 147/59. -continue with nifedipine -continue with metoprolol -continue with clonidine 04/11: Stable BPs, continue medications. 04/12: Remains slightly elevated 04/13: 139/70, will continue to monitor 04/14: Pt continues to be stable. (4) Hyperlipidemia: Code(s): E78.5 - Hyperlipidemia, unspecified Status: Acute Assessment and Plan: -continue home statin at discharge, f/u with PCP to trend LFTs (5) Diabetes: Code(s): E11.9 - Type 2 diabetes mellitus without complications Status: Acute Assessment and Plan: -her A1c is 5.6. -her metformin is on hold at this time. -sliding scale insulin with Accu-Cheks AC and HS. 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 -PT OT has been it consulted -neurology has been consulted. 04/11, 04/12: Neuro consult pending 04/13: Neuro recs: Plan is to explained to the patient and the family thought related about the multiple problems and she will benefit from the ongoing physical therapy I do not see any anti Parkinson's medication her medication list I will agree clarify, it looks like she is being treated for the essential tremor with primidone. She will benefit from the nerve conduction study as an outpatient to document the diabetic neuropathy. Plan Discharge with HH/home therapy DS: Summary Hospital Course Reason for hospitalization: Weakness Hospital Course: This is an 84-year-old female patient who lives with her . She has a history of Parkinson's and stated that she has been feeling weaker recently, she came to the ED on 04/10. She states when she walks she feels like her legs are going to give out. She denies any active bleeding. The patient stated that she was told she has low hemoglobin. The patient is alert and orientated x4 and is talking without difficulty in moving all extremities. She denies any prior history of having a CVA. Her H&H is within normal limits. Her sodium level slightly low at 134. Her estimated GFR is 53 with a BUN of 32. Her blood sugar was 117. BNP 195. Her urine has 1+ leukocyte esterase but is not having any urinary symptoms. Chest x-ray was read as mild cardiomegaly. Mediastinal and hilar contours are within normal limits. Bony thorax no acute abnormality. Right pacemaker. Impression CHF. Moderate pulmonary venous congestion. No pneumothorax. She denies any shortness of breath or chest pain. EKG was read as electronic atrial pacemaker heart rate in the 60s. ST T-wave abnormality. Head CT was read as no acute intracranial abnormality. The patient is being admitted to observation status on the date of service of 04/10/2025. While inpatient, pt underwent an echo and carotid dopplers and both were negative. Plan for brain MRI but pt has R sided pacemaker. Neuro saw and examined patient and ultimately signed off and recommended a nerve conduction study to r/o neuropathy being a reason for her BLE weakness. Pt worked with therapy while inpatient and they were recommending inpatient rehab, but, pt and family not wanting this, they are more comfortable having therapy come to the pts house. Pt to continue home medications upon discharge. Pt stressed the importance of keeping up with her caloric intake, primary care provider follow-up, and therapy. Status at Discharge Overall status at discharge: patient is progressing back to baseline Time Spent with Patient Time attestation: Total time spent providing and/or coordinating discharge services: 45 Exam Narrative: HEENT: PERRL, sclerae nonicteric, pharyngeal mucosa pink and intact NECK: No JVD, adenopathy, or thyromegaly CHEST: Clear to auscultation. Normal effort HEART: NL S1/S2, regular, no murmur ABDOMEN: BS+, soft, nontender, no mass, no bruits EXTREMITIES: No cyanosis, edema, or clubbing NEUROLOGIC: CN with mild left facial droop MUSCULOSKELETAL: Tone and strength symmetric PSYCH: Alert. Oriented to person, place, and time Const: General: cooperative, healthy appearing, comfortable, no acute distress, well developed, awake, Physically active, average body habitus and well nourished Nutritional Appearance: average body habitus and well nourished Orientation/consciousness: oriented to person, oriented to place, oriented to time and patient oriented x3 Limitations: no limitations HENMT: Head: normal to inspection, No palpable skull fracture present, normocephalic and atraumatic Other: Slight facial droop to the left from Jurado's palsy Eyes: General: appearance normal, both eyes and all related structures Alignment and Position: alignment normal Periorbital: periorbital findings normal Eyelids: eyelids normal Pupils: Equal, round and reactive pupils present Neck: Neck: normal visual inspection and full ROM Chest: Chest palpation & inspection: normal inspection of the chest Resp: Effort & Inspection: normal respiratory effort Cardio: Palpation: normal PMI Rate: regular rate Rhythm: regular rhythm GI: Inspection: normal to inspection Auscultation: normal bowel sounds : General: Yes no CVA tenderness Back/Spine/Pelvis: Back: no CVA tenderness Skin: General skin exam: normal color Lesions: no lesions Rashes: no rashes Trauma: no lacerations or abrasions Wounds: no wounds Hair: normal Nails: normal Neuro: General: oriented to person, oriented to place, oriented to time and patient oriented x3 Cranial nerves: Yes Equal, round and reactive pupils present and Yes Normal hearing present Cognition (Neuro): normal cognition Speech: normal speech Motor exam (neuro): 5/5 motor strength present throughout Sensory Exam: normal sensation Extrem: General: normal to inspection Right upper extremity: normal to inspection and shoulder/upper arm Left upper extremity: normal to inspection and shoulder/upper arm Right lower extremity: normal to inspection Left lower extremity: normal to inspection Psych: Appearance: grossly normal Mental Status: mental status grossly normal Speech and movement: Normal speech and movement present Affect: normal affect Attitude: cooperative Thought process: Normal thought process present Insight: Good insight present (Psych) Judgement: Good judgement present (Psych) DS: Data Data Completed and Pending Completed studies during hospitalization: Labs, urine, CXR, head CT, carotid Doppler study Labs on day of discharge: Labs from last 24 hours 04/14/25 04/14/25 04/13/25 08:06 04:56 20:32 WBC 4.5 RBC 4.00 L Hgb 11.4 L Hct 35.6 L MCV 89.0 MCH 28.5 MCHC 32.0 RDW 13.2 Plt Count 212 MPV 10.5 H Immature Gran % (Auto) 0.0 Neut % (Auto) 31.1 L Lymph % (Auto) 55.2 H [place] % (Auto) 8.4 Eos % (Auto) 3.8 Baso % (Auto) 1.5 H Lymph # (Auto) 2.50 [place] # (Auto) 0.4 Eos # (Auto) 0.2 Baso # (Auto) 0.1 Abs Immat Gran (auto) 0.00 Absolute Neuts (auto) 1.4 Absolute Nucleated RBC 0.000 Nucleated RBC % 0.0 Sodium 135 L Potassium 3.5 Chloride 100 Carbon Dioxide 30 Anion Gap 5 BUN 22 H Creatinine 0.89 Estim Creat Clear Calc 41 Estimated GFR 60 Glucose 132 H POC Capillary Glucose 92 136 H Calcium 8.2 L Total Bilirubin 0.2 AST 43 H ALT 36 H Alkaline Phosphatase 103 Total Protein 6.9 Albumin 3.5 TSH (Reflex) 10/19/25 10/19/25 10/19/25 17:22 11:52 05:15 WBC RBC Hgb Hct MCV MCH MCHC RDW Plt Count MPV Immature Gran % (Auto) Neut % (Auto) Lymph % (Auto) [place] % (Auto) Eos % (Auto) Baso % (Auto) Lymph # (Auto) [place] # (Auto) Eos # (Auto) Baso # (Auto) Abs Immat Gran (auto) Absolute Neuts (auto) Absolute Nucleated RBC Nucleated RBC % Sodium Potassium Chloride Carbon Dioxide Anion Gap BUN Creatinine Estim Creat Clear Calc Estimated GFR Glucose POC Capillary Glucose 128 H 124 H Calcium Total Bilirubin AST ALT Alkaline Phosphatase Total Protein Albumin TSH (Reflex) 1.650 Imaging My impression: CXR: Impression: CHF Head CT: Impression: 1.No acute intracranial abnormality. Carotid doppler study: IMPRESSION: 1. No hemodynamically significant ICA stenosis (i.e., if any stenosis, less than 50%). 2. Normal bilateral antegrade vertebral artery flow. Discharge Plan Discharge Attending physician on discharge: Vinicio Gonzáles Consulting providers: Codie Lara; Emile Luna Discharging Clinician: Codie Lara Anticipated Discharge Date/Time: 04/14/25 13:00 Patient Disposition: Home with Home Health Service Activity: october shower Diet: heart healthy Discharge Instructions: Care Coordination: Patient to have [facility] for PT/OT eval and treat, and fdc. Their phone number is [phone], if you have any questions. They will contact you to schedule their visits. 1. Continue to limit your fluid intake due to your low sodium electrolyte value. Follow-up with your primary care provider in the next couple of weeks so they can re-check this value. It looks like you have had low sodium in the past. 2. Neurology gave recommendations for you to have a nerve conduction study performed due to your leg weakness. Whenever you follow-up with your primary care provider, they can get you set up for this test. 3. Continue to work with therapy at home to continue to strengthen your body so you can continue to live an active life! 4. Continue to keep eating your meals, prioritize your protein intake with at least one nutritional shake a day. Continue to check your blood pressure and blood sugar at home if applicable. Keep your scheduled appts with your primary care provider and any specialist that you may see. Return to the emergency department if you develop sudden shortness of breath, chest pain, a fever of greater than 101.5, or nausea, vomiting, abd pain, or diarrhea that does not go away. Follow-up with your primary care provider within 1-2 weeks, they will want to be updated on your inpatient stay in the hospital. Thank you for choosing [facility] for your healthcare needs. Patient Instructions: Weakness (DC) Patient Language: Portuguese Stand Alone Forms: General Discharge Information Follow-up/Referrals: Jose*,MD Zack [Primary Care Provider] - 2 Weeks Referral Note: nerve conduction study Problems: Diabetes Discharge Medications: Continued aspirin 81 mg Tablet 81 mg PO DAILY clonidine HCl 0.2 mg tablet 0.2 mg PO TID hydrocodone-acetaminophen 7.5-325 mg tablet 1 tablet PO Q6H nifedipine 60 mg tablet extended release 24hr 60 mg PO DAILY metoprolol tartrate 50 mg tablet 50 mg PO Q12H ciprofloxacin-dexamethasone 0.3-0.1 % drops,suspension 4 drp RIGHT EAR Q12H trazodone 100 mg tablet 100 mg PO HS metformin 500 mg tablet 500 mg PO DAILY primidone 50 mg tablet 150 mg PO Q12H Patient Comments: for Parkinsons tremors Rx Instructions: see rx instructions isosorbide mononitrate 30 mg tablet extended release 24 hr 30 mg PO DAILY simvastatin 40 mg tablet 20 mg PO DAILY citalopram 20 mg tablet 20 mg PO DAILY Date of admission: 04/12/25 16:54 Primary Care Provider: Zack Conti Admitting Provider: Jostin Jackson Attending physician on admission: Jostin Jackson Condition: Stable Quality VTE Prophylaxis VTE prophylaxis: mechanical ordered Hospitalist MIPS Heart Failure (Exclusion) Patient has history of Heart Transplant or Left Ventricular Assistive Device?: No IF YES, STOP HERE Heart Failure (Qualifier) Patient has current or prior documentation of LVEF less than or equal to 40%, or mod/servere depressed LVSF?: No IF NO, STOP HERE
[2025-04-14] MEDS: PRIMIDONE 50 MG TABLET 150 MG PO (09:51)
[2025-04-14 09:52] VITALS: PULSE 82
[2025-04-14] MEDS: SIMVASTATIN 20 MG TABLET PO (09:52)
[2025-04-14] MEDS: CITALOPRAM HYDROBROMIDE 20 MG TABLET PO (09:52)
[2025-04-14] MEDS: METOPROLOL TARTRATE 50 MG TAB PO (09:52)
[2025-04-14] MEDS: ISOSORBIDE MONONITRATE 30 MG TAB.ER.24H PO (09:52)
== END 2025-04-14 11:30 | disposition home health service (06) | DRG 641 ==
LOC: ANHED 17:04 → ANH3MEDSUR 19:11 → ANH3MED 20:18
PROVIDERS: Internal Medicine; Nurse Practitioner; Physician Assistant; Admitting Provider Internal Medicine; Emergency Provider Emergency Medicine; PCP Internal Medicine
DX: E87.1 Hypo-osmolality and hyponatremia (principal); I50.30 Unspecified diastolic (congestive) heart failure; E11.42 Type 2 diabetes mellitus with diabetic polyneuropathy; I11.0 Hypertensive heart disease with heart failure; G20.B1 Parkinson's disease with dyskinesia, without mention of fluctuations; M19.90 Unspecified osteoarthritis, unspecified site; E78.5 Hyperlipidemia, unspecified; G51.0 Bell's palsy; F32.A Depression, unspecified; E66.9 Obesity, unspecified; Z95.0 Presence of cardiac pacemaker; Z68.33 Body mass index [BMI] 33.0-33.9, adult; Z90.49 Acquired absence of other specified parts of digestive tract
CPT/HCPCS: 36415; 70450; 71045; 80048; 80053; 81001; 82948; 83036; 83735; 83880; 84443; 84484; 85025; 85027; 86850; 86900; 86901; 87086; 93005; 93306; 93880; 96372; 96374; 97110; 97161; 97165; 97530; 99285; A9270; G0378; J1938